=== PATIENT | male | born 1945 | race Caucasian/White ===

== ENCOUNTER → 2016-12-23 20:17 | Emergency (ER) | payer MEDICARE ==
[~2016-12-23 20:17] MED LIST: Iohexol 300* (CONTRAST) 10 ML SDV IV ONE; Morphine INJ* 2 MG/ML 1 ML SYRINGE IV ONE; NS 0.9% 1000 ML* 1,000 ML IV ONE; Ondansetron INJ* 2 MG/ML VIAL IV ONE; Tamsulosin CAP* 0.4 MG PO ONE
[2016-12-23 21:45] LABS: Hematocrit 48 % (42-52); Hemoglobin 15.5 g/dl (14.0-18.0); Mean Corpuscular HGB Conc 32 g/dl (31-36); Mean Corpuscular Hemoglobin 31 pg (27-31); Mean Corpuscular Volume 95 fL (80-94); Mean Platelet Volume 10 um3 (7.4-10.4); Red Blood Count 5.04 10^6/ul (4.0-5.4); Red Cell Distribution Width 16 % (10.5-15); White Blood Count 7.1 10^3/ul (3.5-10.8)
[2016-12-23 21:48] LABS: Add Diff/Slide Review? Slide Review Added; Comments Flag Yes
[2016-12-23 21:59] LABS: Albumin 3.6 g/dL (3.2-5.2); BUN/Creatinine Ratio 18.4 (8-20); C Reactive Protein 9.74 mg/L (< 5.00); Calcium 9.2 mg/dL (8.6-10.3); EGFR African American 81.2 (>60); EGFR Non-African American 63.1 (>60); Magnesium 1.9 mg/dL (1.9-2.7); Total Bilirubin 0.7 mg/dL (0.2-1.0); Total Protein 6.6 g/dL (6.4-8.9)
[2016-12-23 22:19] LABS: Potassium 4.4 mmol/L (3.5-5.0)
[2016-12-24 01:07] LABS: Urine Bacteria Absent (Absent); Urine Bilirubin Negative (Negative); Urine Glucose Negative (Negative); Urine Nitrite Negative (Negative)
[2016-12-24 02:14] VITALS: BP 123/94
--- NOTE | 2016-12-24 07:37 | RAD ---
INDICATION: Abdominal pain. COMPARISON: Comparison is made with a prior CT angiogram of the chest from July 23, 2016. TECHNIQUE: A CT scan of the abdomen and pelvis was performed with intravenous and oral contrast following intravenous injection of 131 ml of Omnipaque 300 nonionic contrast. Contiguous axial sections were obtained from the lung bases through the symphysis pubis. Images were reconstructed in the coronal and sagittal planes. FINDINGS: There is a moderate size left pleural effusion. There is mild shift of the heart toward the right side. There are pleural calcifications present posteriorly at the right lung base which are unchanged likely from prior infection or hemorrhage. There is mild dependent bilateral lower lobe subsegmental atelectasis. There is a trace pericardial effusion. The liver is normal in size without significant focal hepatic abnormality. No calcified gallstones are seen. The spleen is markedly enlarged spanning 15.2 cm craniocaudad dimension. The pancreas appears to be within normal limits. The kidneys and adrenal glands are normal in size without focal abnormality. There is mild dilatation of the right renal pelvis, calyces and proximal ureter to the level of a 4 x 5 mm calculus in the proximal ureter causing mild hydronephrosis. The aorta is normal in caliber with moderate calcific plaque present. No significant enlarged retroperitoneal lymph nodes are seen. The stomach, small and large bowel appear nondistended. The patient is status post appendectomy by history. There are mild scattered diverticuli within the colon. There is no evidence for diverticulitis or colitis. There is a small amount of free intraperitoneal fluid noted adjacent to the liver and spleen, in both paracolic gutters and pelvis. No free intraperitoneal air is seen. The patient is status post laminectomy and posterior spinal fusion at the L4-L5 level with pedicle screws. No other focal osseous abnormalities are seen. IMPRESSION: 1. MODERATE SIZE LEFT PLEURAL EFFUSION. 2. TRACE PERICARDIAL EFFUSION. 3. 4 X 5 MM CALCULUS IN THE PROXIMAL RIGHT URETER CAUSING MILD HYDRONEPHROSIS. 4. SMALL AMOUNT OF ASCITES. 5. MILD SPLENOMEGALY.
--- NOTE | 2016-12-24 07:49 | RAD ---
INDICATION: Shortness of breath. COMPARISON: Comparison is made with a prior chest x-ray study from September 06, 2015. TECHNIQUE: Dual-energy PA and lateral views of the chest were obtained. FINDINGS: The heart is within normal limits in size. Mediastinal and hilar contours appear within normal limits. There are small bilateral pleural effusions and bibasilar infiltrates. There is flattening of the diaphragms suggestive of chronic obstructive pulmonary disease. IMPRESSION: SMALL BILATERAL PLEURAL EFFUSIONS AND BIBASILAR INFILTRATES.
--- NOTE | 2017-01-03 04:03 | ED ---
Desmond Heredia Billy, scribed for Keyon Agudelo MD on 12/23/16 at 2053 . Abdominal Pain/Male - HPI Summary HPI Summary: Patient is a 71 year-old male coming to [facility] for evaluation of RLQ pain radiating to the right flank. The pain started gradually at 1800 and has been constant since onset. Patient was watching TV when the pain started. He feels nauseated. No history of similar prior episodes or kidney stones. Patient felt normal earlier today. - History of Current Complaint Chief Complaint: EDFlankPain Stated Complaint: ABD AND FLANK PAIN Time Seen by Provider: 12/23/16 20:50 Hx Obtained From: Patient Onset/Duration: Gradual Onset, Lasting Hours Timing: Constant Severity Initially: Moderate Severity Currently: Moderate Pain Intensity: 8 Pain Scale Used: 0-10 Numeric Location: Discrete At: RLQ Radiates: Yes Radiates to: Flank Aggravating Factor(s): Nothing Alleviating Factor(s): Nothing Associated Signs And Symptoms: Positive: Nausea - Allergies/Home Medications Allergies/Adverse Reactions: Allergies Allergy/AdvReac Type Severity Reaction Status Date / Time Codeine Allergy Intermediate Nausea And Verified 09/13/15 05:54 Vomiting Penicillins AdvReac Severe Swelling Verified 09/13/15 05:54 PMH/Surg Hx/FS Hx/Imm Hx Endocrine/Hematology History: Denies: Hx Diabetes Cardiovascular History: Reports: Hx Angina - mid chest, Hx Hypertension GI History: Denies: Hx Gall Bladder Disease History: Denies: Hx Renal Disease Musculoskeletal History: Reports: Hx Bursitis, Other Musculoskeletal History - GOUT Sensory History: Reports: Hx Contacts or Glasses - GLASSES Denies: Hx Hearing Aid Opthamlomology History: Reports: Hx Contacts or Glasses - GLASSES - Surgical History Surgery Procedure, Year, and Place: APPENDECTOMY [facility]. TONSILLECTOMY [facility]. TENDON REPAIR LEFT HAND [facility]. L4-5 FUSION 09/13/2015 Hx Anesthesia Reactions: No Infectious Disease History: Denies: Traveled Outside the [place] in Last 30 Days - Family History Family History: No FHx of malignant hyperthermia or anesthesia reaction. - Social History Alcohol Use: Daily Alcohol Amount: 2 BEERS, 2-3 SCOTCH Substance Use Type: Reports: None Substance Use Comment - Amount & Last Used: CHEWS TOBACCO DAILY Hx Tobacco Use: Yes Smoking Status (MU): Former Smoker Amount Used/How Often: 2 PPD Length of Time of Smoking/Using Tobacco: 40 YEARS Have You Smoked in the Last Year: No Review of Systems Negative: Fever Positive: Abdominal Pain, Nausea Positive: flank pain All Other Systems Reviewed And Are Negative: Yes Physical Exam Triage Information Reviewed: Yes Vital Signs On Initial Exam: Initial Vitals Temp Pulse Resp BP Pulse Ox 97.6 F 104 20 159/112 98 12/23/16 20:20 12/23/16 20:20 12/23/16 20:20 12/23/16 20:20 12/23/16 20:20 Vital Signs Reviewed: Yes Appearance: Positive: Well-Appearing, Pain Distress - mild discomfort Skin: Positive: Warm Head/Face: Positive: Normal Head/Face Inspection Eyes: Positive: ARMAND ENT: Positive: Hearing grossly normal Neck: Positive: Supple Respiratory/Lung Sounds: Positive: Breath Sounds Present Cardiovascular: Positive: RRR Abdomen Description: Positive: Nontender, Soft. Negative: CVA Tenderness (R), CVA Tenderness (L) Bowel Sounds: Positive: Present Musculoskeletal: Positive: Strength/ROM Intact Neurological: Positive: Alert, Oriented to Person Place, Time Psychiatric: Positive: Affect/Mood Appropriate Diagnostics - Vital Signs Vital Signs Temp Pulse Resp BP Pulse Ox 12/23/16 20:20 97.6 F 104 20 159/112 98 - Laboratory Lab Results: Lab Results 12/23/16 12/23/16 12/23/16 Range/Units 21:30 21:30 21:30 WBC 7.1 (3.5-10.8) 10^3/ul RBC 5.04 (4.0-5.4) 10^6/ul Hgb 15.5 (14.0-18.0) g/dl Hct 48 (42-52) % MCV 95 H (80-94) fL MCH 31 (27-31) pg MCHC 32 (31-36) g/dl RDW 16 H (10.5-15) % Plt Count 138 L (150-450) 10^3/ul MPV 10 (7.4-10.4) um3 Neut % (Auto) 84.5 H (38-83) % Lymph % (Auto) 5.1 L (25-47) % Flagler % (Auto) 6.5 (1-9) % Eos % (Auto) 1.0 (0-6) % Baso % (Auto) 2.9 H (0-2) % Absolute Neuts (auto) 6.0 (1.5-7.7) 10^3/ul Absolute Lymphs (auto) 0.4 L (1.0-4.8) 10^3/ul Absolute Monos (auto) 0.5 (0-0.8) 10^3/ul Absolute Eos (auto) 0.1 (0-0.6) 10^3/ul Absolute Basos (auto) 0.2 (0-0.2) 10^3/ul Absolute Nucleated RBC 0 10^3/ul Nucleated RBC % 0 Sodium 134 (133-145) mmol/L Potassium 4.4 (3.5-5.0) mmol/L Chloride 104 (101-111) mmol/L Carbon Dioxide 23 (22-32) mmol/L Anion Gap 7 (2-11) mmol/L BUN 21 (6-24) mg/dL Creatinine 1.14 (0.67-1.17) mg/dL Est GFR ( Amer) 81.2 (>60) Est GFR (Non-Af Amer) 63.1 (>60) BUN/Creatinine Ratio 18.4 (8-20) Glucose 138 H (70-100) mg/dL Lactic Acid 1.1 (0.5-2.0) mmol/L Calcium 9.2 (8.6-10.3) mg/dL Magnesium 1.9 (1.9-2.7) mg/dL Total Bilirubin 0.70 (0.2-1.0) mg/dL AST 30 (13-39) U/L ALT 22 (7-52) U/L Alkaline Phosphatase 103 (34-104) U/L C-Reactive Protein 9.74 H (< 5.00) mg/L Total Protein 6.6 (6.4-8.9) g/dL Albumin 3.6 (3.2-5.2) g/dL Globulin 3.0 (2-4) g/dL Albumin/Globulin Ratio 1.2 (1-3) Lipase 64 (11.0-82.0) U/L Urine Color Urine Appearance Urine pH (5-9) Ur Specific [place] (1.010-1.030) Urine Protein (Negative) Urine Ketones (Negative) Urine Blood (Negative) Urine Nitrate (Negative) Urine Bilirubin (Negative) Urine Urobilinogen (Negative) Ur Leukocyte Esterase (Negative) Urine WBC (Auto) (Absent) Urine RBC (Auto) (Absent) Urine Bacteria (Absent) Urine Glucose (Negative) 12/24/16 Range/Units 00:48 WBC (3.5-10.8) 10^3/ul RBC (4.0-5.4) 10^6/ul Hgb (14.0-18.0) g/dl Hct (42-52) % MCV (80-94) fL MCH (27-31) pg MCHC (31-36) g/dl RDW (10.5-15) % Plt Count (150-450) 10^3/ul MPV (7.4-10.4) um3 Neut % (Auto) (38-83) % Lymph % (Auto) (25-47) % Flagler % (Auto) (1-9) % Eos % (Auto) (0-6) % Baso % (Auto) (0-2) % Absolute Neuts (auto) (1.5-7.7) 10^3/ul Absolute Lymphs (auto) (1.0-4.8) 10^3/ul Absolute Monos (auto) (0-0.8) 10^3/ul Absolute Eos (auto) (0-0.6) 10^3/ul Absolute Basos (auto) (0-0.2) 10^3/ul Absolute Nucleated RBC 10^3/ul Nucleated RBC % Sodium (133-145) mmol/L Potassium (3.5-5.0) mmol/L Chloride (101-111) mmol/L Carbon Dioxide (22-32) mmol/L Anion Gap (2-11) mmol/L BUN (6-24) mg/dL Creatinine (0.67-1.17) mg/dL Est GFR ( Amer) (>60) Est GFR (Non-Af Amer) (>60) BUN/Creatinine Ratio (8-20) Glucose (70-100) mg/dL Lactic Acid (0.5-2.0) mmol/L Calcium (8.6-10.3) mg/dL Magnesium (1.9-2.7) mg/dL Total Bilirubin (0.2-1.0) mg/dL AST (13-39) U/L ALT (7-52) U/L Alkaline Phosphatase (34-104) U/L C-Reactive Protein (< 5.00) mg/L Total Protein (6.4-8.9) g/dL Albumin (3.2-5.2) g/dL Globulin (2-4) g/dL Albumin/Globulin Ratio (1-3) Lipase (11.0-82.0) U/L Urine Color Yellow Urine Appearance Clear Urine pH 5.0 (5-9) Ur Specific [place] 1.027 (1.010-1.030) Urine Protein Negative (Negative) Urine Ketones Negative (Negative) Urine Blood 3+ H (Negative) Urine Nitrate Negative (Negative) Urine Bilirubin Negative (Negative) Urine Urobilinogen Negative (Negative) Ur Leukocyte Esterase Negative (Negative) Urine WBC (Auto) Trace(0-5/hpf) (Absent) Urine RBC (Auto) 3+(>10/hpf) H (Absent) Urine Bacteria Absent (Absent) Urine Glucose Negative (Negative) Result Diagrams: 12/23/16 21:30 12/23/16 21:30 Lab Statement: Any lab studies that have been ordered have been reviewed, and results considered in the medical decision making process. - Radiology CXR Radiology Interpretation Completed By: ED Physician - Blunting of the bilateral costophrenic angles. - CT abd/pel CT Interpretation Completed By: Radiologist - Mild right hydroureter secondary to a 5mm mid ureteral stone. Small amount of ascites of uncertain cause. Moderate size left pleural effusion causing mild medastinal shift and minimal right pleural effusion with mild basilar compressive atelectasis or scarring. Trace pericardial effusion. Mild splenomegaly. Right pleural calcifications likely reflect old infection or old hemorrhage. Re-Evaluation - Re-Evaluation First Eval Change: Improved Abdominal Pain Fem Course/Dx - Diagnoses Provider Diagnoses: Renal colic Discharge - Discharge Plan Condition: Improved Disposition: HOME Prescriptions: Tamsulosin CAP* [Flomax CAP*] 0.4 mg PO DAILY #7 cap Patient Education Materials: Kidney Stones (ED), Renal Colic (ED), Pleural Effusion (ED) Referrals: Servando Hubbard MD [Medical Doctor] - The documentation as recorded by the Desmond pineda Billy accurately reflects the service I personally performed and the decisions made by me, Keyon Agudelo MD.
== END | disposition home or self-care (01) ==
LOC: ED 20:17
DX: N23 Unspecified renal colic (principal); R10.31 Right lower quadrant pain; Z87.891 Personal history of nicotine dependence; R11.0 Nausea
CPT/HCPCS: 36415; 71020; 74177; 80053; 81003; 81015; 83605; 83690; 83735; 85025; 86140; 99284; J2270; J2405; Q9967

== ENCOUNTER 2016-12-25 15:09 | Inpatient (IN) | payer MEDICARE, OTHER ==
[2016-12-25] MEDS ORDERED: NS 0.9% 1000 ML* 1,000 ML IV ONE (16:02)
[2016-12-25 17:02] LABS: Hematocrit 44 % (42-52); Hemoglobin 14.4 g/dl (14.0-18.0); Mean Corpuscular HGB Conc 33 g/dl (31-36); Mean Corpuscular Hemoglobin 31 pg (27-31); Mean Corpuscular Volume 96 fL (80-94); Mean Platelet Volume 10 um3 (7.4-10.4); Red Blood Count 4.61 10^6/ul (4.0-5.4); Red Cell Distribution Width 15 % (10.5-15); White Blood Count 5.7 10^3/ul (3.5-10.8)
[2016-12-25 17:30] LABS: Albumin 3.5 g/dL (3.2-5.2); BUN/Creatinine Ratio 17.9 (8-20); Calcium 8.9 mg/dL (8.6-10.3); EGFR African American 100.2 (>60); EGFR Non-African American 77.9 (>60); Globulin 2.7 g/dL (2-4); Potassium 4.5 mmol/L (3.5-5.0); Total Bilirubin 0.7 mg/dL (0.2-1.0); Total Protein 6.2 g/dL (6.4-8.9)
--- NOTE | 2016-12-25 17:31 | RAD ---
Indication: Shortness of breath. 2 views of the chest including dual energy PA views demonstrate no mediastinal shift. Interstitial edema is noted with bibasilar atelectasis. Small bilateral pleural effusions are noted. When compared to previous exam of December 24, 2016 pleural effusion appears to to BE unchanged. IMPRESSION: Bilateral pleural effusion with interstitial edema and likely bibasilar atelectasis unchanged from December 24, 2016.
[2016-12-25] MEDS ORDERED: Iohexol 350* (CONTRAST) 500 ML MDV IV ONE (18:11)
--- NOTE | 2016-12-25 18:39 | RAD ---
Indication: Shortness of breath, elevated d-dimer. Contrast: Administered 83.0 ml of OMNIPAQUE 350 mgi/ml CTA of the chest was performed after IV contrast administration. Coronal and sagittal reconstructed images were obtained. Comparison is made with previous exam dated July 23, 2016. The pulmonary arterial tree is well opacified. There are no filling defects present to suggest pulmonary embolus. The aorta demonstrates no evidence of aneurysmal dilatation. The heart demonstrates no pericardial effusion. Inferior thyroid lobes are unremarkable. Small 3 to 5 mm precarinal lymph nodes are noted. No hilar adenopathy is noted. There is a large left-sided pleural effusion with compressive atelectasis of the left lung base. Some atelectasis in the right lung base is also noted. Lung auguste otherwise demonstrate some bronchiectasis in the right lower lobe. No focal nodules are identified. The bony structures are grossly unremarkable. The visualized abdominal organs are unremarkable. Small amount of ascites is noted. IMPRESSION: NO EVIDENCE OF PULMONARY EMBOLUS IS NOTED. LARGE LEFT PLEURAL EFFUSION WITH LIKELY COMPRESSIVE ATELECTASIS OF THE LEFT LOWER LOBE. THIS FINDING IS NEW SINCE PREVIOUS EXAMINATION.
[2016-12-25 19:13] LABS: C Reactive Protein 9.09 mg/L (< 5.00)
[2016-12-25] MEDS ORDERED: CMCS Melatonin (NF) 3 MG TAB PO SCH (21:00)
[2016-12-25] MEDS: CMCS Melatonin (NF) 3 MG TAB PO SCH (22:35)
[2016-12-25] MEDS: Furosemide IV* 10 MG/ML VIAL (40 MG) IV SCH (22:35)
[2016-12-25] MEDS: Heparin VIAL(*) 5000 UNITS/ML VIAL (FIVE THOUSAND) SUBCUT SCH (22:36)
--- NOTE | 2016-12-26 | HP ---
HISTORY AND PHYSICAL: DATE OF ADMISSION: 12/25/16 PRIMARY CARE PROVIDER: Norma Rae NP ATTENDING PHYSICIAN: Dr. Mitchel Gaitan* (dictated by Marry Samano NP). CHIEF COMPLAINT: Shortness of breath when lying flat and lower extremity edema. HISTORY OF PRESENT ILLNESS: Mr. Hartman is a 71-year-old male with a past medical history significant for hypertension, angina and gout who presented to the emergency room today after being transferred from his primary care provider' s office for further evaluation of his shortness of breath. The patient reports that over the last approximate month, he has noticed increased ankle edema. 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 The patient started wearing SNOW compression stockings and did start to have some improvement in his lower extremity edema. The patient has also noted that he has been short of breath over the past few weeks, more so with exertion and the shortness of breath was worse at the bedtime. He is unable to lie flat for a few hours at night and then has been happening to get up and sleep sitting up in his recliner chair. He also reports gaining approximately 10 pounds over the past 3 weeks. The patient reports recently eating Spam and corned beef over the past week. He was also seen in the emergency room on 12/23/16, and was diagnosed with a kidney stone. At that time, the patient had a chest x-ray showing small bilateral pleural effusion and bibasilar infiltrates. He also had an abdomen and pelvis CT scan showing a moderate sized left pleural effusion, a trace pericardial effusion and a 4 x 5 mm renal calculus in the proximal right ureter causing a mild hydronephrosis. At that time the patient was started on Flomax and discharged home to follow up with Urology outpatient. The patient has been straining his urine and has not seen a stone be passed. His abdomen discomfort has resolved since that admission. The patient was at his primary care having a followup today and discussing his symptoms and they felt after seeing the image reports that the patient should be further evaluated in the emergency room today. While in the emergency room, the patient had a chest x-ray showing bilateral pleural effusions with interstitial edema and likely bibasilar atelectasis is unchanged from December 24. The patient also had a chest thoracic CTA showing no evidence for pulmonary embolism. There was a large left pleural effusion with likely compressive atelectasis of the left lower lobe. This finding was new since the previous imaging. The patient also had a EKG showing a sinus rhythm with new T- wave inversions in leads V1 to V3. While in the emergency room, the patient received a liter of IV fluids. He had labs that were remarkable for a slightly low platelet count of 146. He had a D-dimer that was 526, BNP of 172, CRP of 9.09. The patient's other labs were unremarkable. The patient denies fever, chills, chest pain. He reports a dry occasional cough. He reports a poor appetite over the past few months and reports recently waking up in the night with nocturnal urination and approximately 3 weeks ago was treated for a UTI. Hospitalists were asked to evaluate this patient for admission. PAST MEDICAL HISTORY: 1. Hypertension. 2. Angina. 3. Gout. 4. Bursitis. PAST SURGICAL HISTORY: 1. Status post appendectomy. 2. Status post tonsillectomy. 3. Status post tendon repair of the left hand. 4. Status post L4-5 fusion in September of 2015. HOME MEDICATIONS: Include: 1. Flomax 0.4 mg oral daily. 2. Lisinopril 5 mg oral daily. 3. Vitamin D3, 4000 units oral daily. 4. Aspirin 81 mg oral daily. 5. Allopurinol 100 mg oral daily. ALLERGIES: CODEINE and PENICILLIN. FAMILY HISTORY: The patient's father passed in his 70s after having a history of coronary artery disease, peripheral vascular disease and a history of coronary artery bypasses. The patient's maternal family has a history of diabetes mellitus. The patient denies any family history of cancer. SOCIAL HISTORY: The patient is a former smoker smoking 4 packs a day for approximately 35 years, he quit smoking approximately 30 years ago. He currently uses smokeless tobacco and uses a de jesus approximately 2 days. The patient drinks 2 beers and one scotch daily. He denies recreational drug use. 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 He is and lives with his , Griselda Hartman, who would be his surrogate decision maker in the event that he is unable to make decisions for himself. REVIEW OF SYSTEMS: I performed a 14-point review of systems. All the pertinent positives and negatives are mentioned in the history of present illness. The remaining review of systems are negative. PHYSICAL EXAMINATION GENERAL APPEARANCE: The patient is alert, pleasant, appears to be in no acute distress. VITAL SIGNS: Temperature 98.3, heart rate 82, respiratory rate 18, O2 sat 96% on room air, blood pressure 142/78. HEENT: Normocephalic, atraumatic. Pupils are equal and reactive to light. Extraocular movements are intact. RESPIRATORY: There is no accessory muscle use. The lungs are clear in the upper auguste and there are crackles in the bilateral lower lobes. CARDIOVASCULAR: Regular rate and rhythm. S1, S2 present. There is no murmurs , rubs or gallops heard. ABDOMEN: Soft, large, nontender. There are bowel sounds present x4. EXTREMITIES: There is 1 to 2+ bilateral lower extremity edema. DP and PT pulses 1+ and symmetric. MUSCULOSKELETAL: There is no clubbing or cyanosis noted. The patient exhibits good strength in all extremities. NEUROLOGIC: The patient is alert and oriented x4. Cranial nerves II through XII are grossly intact. PSYCHOLOGICAL: The patient is calm and cooperative. SKIN: There are no rashes or abnormalities seen. DIAGNOSTIC STUDIES/LABORATORY DATA: Sodium 135, potassium 4.5, chloride 102, CO2 28, BUN 17, creatinine 0.95, glucose 88. White blood cell count 5.7, hemoglobin 14.4, hematocrit 44, and platelet count 147. D-dimer 526, CRP 9.09, BNP 172, troponin 0.00. EKG shows a sinus rhythm, rate of 99 and right bundle branch block. There are T - wave inversions that is new in leads V1 to V3 when compared to previous EKG from 07/23/16. The right bundle branch block is new. 1. Chest x-ray from today. Radiologist impression: Bilateral pleural effusion with interstitial edema and likely bibasilar atelectasis is unchanged from 12/24/16. 2. Chest CTA from today. Radiologist impression: No evidence of pulmonary embolus is noted. Large left pleural effusion with likely compressive atelectasis of the left lower lobe. This finding is new since previous examination. IMPRESSION: Mr. Hart is a 71-year-old male with a past medical history significant for hypertension and angina who presents to the emergency room with complaints of shortness of breath and pedal edema. He will be admitted as an observation for new onset heart failure. 1. Shortness of breath. I suspect the patient's shortness of breath is related to heart failure exacerbation. This is new onset for the patient. We will monitor him on telemetry, check an echocardiogram in the morning. I will give the patient a dose of IV Lasix now and place him on Lasix twice daily starting in the morning. We will do daily weights and strict I's and O's. 2. Hypertension. The patient will be continued on his home lisinopril. 3. History of gout. The patient will be continued on his home allopurinol. 4. Kidney stone. The patient has not yet passed the kidney stone. He is no longer having flank pain. We will continue him on Flomax at this time. 5. Fluids, electrolytes and nutrition. The patient will be on a low sodium diet. 6. Code status. Full code. 7. DVT prophylaxis. The patient is a highest risk and will have subcu heparin and SNOW compression stockings. 8. Disposition. Observation. TIME SPENT: Time for this admission was 60 minutes, 35 minutes was spent face- to- face with the patient and discussing medications, past medical history and the events leading up their arrival today and performing a physical examination. The case has been reviewed with the attending, Dr. Gaitan, who agrees with the plan of care. Reviewed by JOSE JUAN GOLDBERG 12/29/16 [id number] CC: Norma Rae NP at the [facility]* [id number]/CPS #: [id number] MTDD
[2016-12-26] MEDS: Heparin VIAL(*) 5000 UNITS/ML VIAL (FIVE THOUSAND) SUBCUT SCH ×3 (05:18→21:12)
[2016-12-26 05:44] LABS: BUN/Creatinine Ratio 20.7 (8-20); Calcium 8.6 mg/dL (8.6-10.3); EGFR African American 118.8 (>60); EGFR Non-African American 92.4 (>60); Potassium 3.9 mmol/L (3.5-5.0)
[2016-12-26] MEDS: Allopurinol TAB* 100 MG PO SCH (08:54)
[2016-12-26] MEDS: Cholecalciferol TAB* 1000 UNITS PO SCH (08:55)
[2016-12-26] MEDS: Tamsulosin CAP* 0.4 MG PO SCH (08:55)
[2016-12-26] MEDS: Aspirin Low Dose CHEW TAB* 81 MG PO SCH (08:56)
[2016-12-26] MEDS: Furosemide IV* 10 MG/ML VIAL (40 MG) IV SCH ×2 (08:56→17:18)
[2016-12-26] MEDS ORDERED: Lisinopril TAB* 5 MG PO SCH (09:00)
--- NOTE | 2016-12-26 13:15 | ECHO ---
Patient: KOMAL BUSH [facility] Rec#: [id number] : 1945 Date: 12/26/2016 Age: 71y Height: 180.34 cm / 71.0 in Weight: 103.42 kg / 227.9 lbs Sex: M BSA: 2.23 Room#: 443 Admit Date#: 12/25/2016 Type: Inpatient Referring: Marry Philip NP Reading: Kayla Singh MD [employer] Machine Operator: Ngozi ClarkRDCS,RDMS Transthoracic Echocardiogram Indication: SOB, edema BP: 97/82 HR: 95 Rhythm: NSR Indications Shortness of Breath Findings History: Large left pleural effusion, HTN, gout Technical Comments: The study quality is poor. Completed 1120 The study is technically limited due to poor acoustic windows. Left Ventricle: The left ventricle is not well visualized. The estimated ejection fraction is 55-60%. Abnormal left ventricular diastolic filling is observed, consistent with impaired relaxation. Left Atrium: The left atrium is mildly dilated. Right Ventricle: The right ventricular chamber size and systolic function are within normal limits. The right ventricular global systolic function is mildly to moderately reduced. Right Atrium: The right atrium is mild to moderately dilated. Aortic Valve: The aortic valve leaflets are mildly thickened. There is aortic annular calcification. There is no evidence of aortic regurgitation. There is no evidence of aortic stenosis. Mitral Valve: The mitral valve leaflets appear normal. There is no evidence of mitral regurgitation. There is no evidence of mitral stenosis. Tricuspid Valve: The tricuspid valve leaflets are normal. There is trace tricuspid regurgitation. No pulmonary hypertension is noted. Pulmonic Valve: There is no evidence of pulmonic valve thickening. There is a trace pulmonic regurgitation. Pericardium: There is no significant pericardial effusion. Aorta: The aorta is not well visualized. There is no dilatation of the aortic arch. Pulmonary Artery: The main pulmonary artery is not well visualized. Venous: The inferior vena cava is dilated. There is less than 50% respiratory change in the inferior vena cava dimension. Conclusions The study quality is poor. Best images were subcostal. Grossly normal left ventricular wall motion and systolic function. The estimated ejection fraction is 55-60%. Abnormal left ventricular diastolic filling is observed, consistent with impaired relaxation. The right ventricular chamber size is normal. Mild to moderate RV hypokinesis. All valves show grossly normal function. The aortic valve leaflets are mildly thickened with normal function. There is trace tricuspid regurgitation. No pulmonary hypertension is noted. No prior echo to compare. Measurements Name Value Normal Range RVDdMajor (2D) 2.6 cm (2.2 - 4.4) RAd ISD 4CH 6.3 cm (3.4 - 4.9) RA (A4C)W 4.6 cm (2.9 - 4.6) Aortic arch 2.4 cm (1.8 - 3.4) LAd ISD 4CH 5 cm (2.9 - 5.3) LA ISD 4CH W 5.1 cm (2.5 - 4.5) Name Value Normal Range MV E-wave Vmax 0.3 m/sec - MV deceleration time 108 msec - MV A-wave Vmax 0.6 m/sec - MV E:A ratio 0.5 ratio - LV septal e' Vmax 0.09 m/sec - LV lateral e' Vmax 0.08 m/sec - LV E:e' septal ratio 3.4 ratio - LV E:e' lateral ratio 3.8 ratio - Name Value Normal Range AV Vmax 1.5 m/sec - AV VTI 24 cm - AV peak gradient 9 mmHg - AV mean gradient 4.8 mmHg - LVOT Vmax 0.5 m/sec - LVOT VTI 8.1 cm - LVOT peak gradient 1.2 mmHg - LVOT mean gradient 0.5 mmHg - Name Value Normal Range TR Vmax 1.6 m/sec - TR peak gradient 10 mmHg - RAP 8 mmHg - RVSP 18 mmHg - IVC diameter 2.3 cm - Name Value Normal Range PV Vmax 0.6 m/sec - PV peak gradient 1.4 mmHg -
--- NOTE | 2016-12-26 14:35 | ED ---
Duarte Heredia Anna, scribed for NdubuisiArtemio MD on 12/25/16 at 1632 . Shortness of Breath - HPI Summary HPI Summary: Patient is a 71 y/o male coming to [facility] presenting with SOB that began a few weeks ago. He has also had ankle edema beginning one month ago. Associated with a dry cough. The SOB is exacerbated by exertion and is worse at night. He additionally has decreased appetite. He was seen two nights ago for flank pain and dx with kidney stone. At that time, a CXR revealed small bilateral pleural effusion and pericardial effusion. He denies other cardiac or pulmonary history. 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 He denies a Hx of blood clot. He had a stress test in 07/2016. Patient medications were reviewed this visit. - History of Current Complaint Chief Complaint: EDShortnessOfBreath Time Seen by Provider: 12/25/16 15:49 Hx Obtained From: Patient, Family/Door Closer - accompanied by and daughters Current Severity: Moderate Dyspnea At: Exertion - Allergy/Home Medications Allergies/Adverse Reactions: Allergies Allergy/AdvReac Type Severity Reaction Status Date / Time Codeine Allergy Intermediate Nausea And Verified 09/13/15 05:54 Vomiting Penicillins AdvReac Severe Swelling Verified 09/13/15 05:54 PMH/Surg Hx/FS Hx/Imm Hx Endocrine/Hematology History: Denies: Hx Diabetes Cardiovascular History: Reports: Hx Angina - mid chest, Hx Hypertension - MEDICATED GI History: Denies: Hx Gall Bladder Disease History: Denies: Hx Renal Disease Musculoskeletal History: Reports: Hx Bursitis, Other Musculoskeletal History - GOUT Sensory History: Reports: Hx Contacts or Glasses - GLASSES Denies: Hx Hearing Aid Opthamlomology History: Reports: Hx Contacts or Glasses - GLASSES - Surgical History Surgery Procedure, Year, and Place: APPENDECTOMY [facility]. TONSILLECTOMY [facility] [place] TENDON REPAIR LEFT HAND [facility]. L4-5 FUSION 09/13/2015 Hx Anesthesia Reactions: No Infectious Disease History: No Infectious Disease History: Denies: Traveled Outside the [place] in Last 30 Days - Family History Family History: No FHx of malignant hyperthermia or anesthesia reaction. - Social History Alcohol Use: Daily Alcohol Amount: 2 BEERS, 2-3 SCOTCH Substance Use Type: Reports: None Substance Use Comment - Amount & Last Used: CHEWS TOBACCO DAILY Hx Tobacco Use: Yes Smoking Status (MU): Former Smoker Amount Used/How Often: 2 PPD Length of Time of Smoking/Using Tobacco: 40 YEARS Have You Smoked in the Last Year: No Review of Systems Positive: Other - decreased appetite Positive: Shortness Of Breath, Cough Positive: Edema All Other Systems Reviewed And Are Negative: Yes Physical Exam Triage Information Reviewed: Yes Vital Signs On Initial Exam: Initial Vitals Temp Pulse Resp BP Pulse Ox 98.3 F 100 18 128/90 99 12/25/16 15:13 12/25/16 15:13 12/25/16 15:13 12/25/16 15:13 12/25/16 15:13 Vital Signs Reviewed: Yes Appearance: Positive: Well-Appearing, No Pain Distress, Well-Nourished Skin: Positive: Warm, Skin Color Reflects Adequate Perfusion, Dry Head/Face: Positive: Normal Head/Face Inspection Eyes: Positive: EOMI, ARMAND, Conjunctiva Clear ENT: Positive: Pharynx normal, TMs normal Neck: Positive: Supple, Nontender, Other: - No JVD Respiratory/Lung Sounds: Positive: Breath Sounds Present, Other - Bilbasilar crackles. Negative: Rales, Rhonchi, Wheezes Cardiovascular: Positive: RRR, S1, S2. Negative: Murmur, Rub, Other - no gallops Abdomen Description: Positive: Nontender, No Organomegaly. Negative: Distended , Guarding, Other: - No rebound Bowel Sounds: Positive: Present Musculoskeletal: Positive: Strength/ROM Intact, Other - 2+ edema of bilateral lower extremities Neurological: Positive: Normal, Sensory/Motor Intact, Alert, Oriented to Person Place, Time Psychiatric: Positive: Affect/Mood Appropriate - [place] Coma Scale Coma Scale Total: 15 Diagnostics - Vital Signs Vital Signs Temp Pulse Resp BP Pulse Ox 12/25/16 15:27 98.3 F 101 18 123/93 96 12/25/16 15:13 98.3 F 100 18 128/90 99 - Laboratory Lab Results: Lab Results 12/25/16 12/25/16 12/25/16 Range/Units 16:39 16:40 16:40 WBC 5.7 (3.5-10.8) 10^3/ul RBC 4.61 (4.0-5.4) 10^6/ul Hgb 14.4 (14.0-18.0) g/dl Hct 44 (42-52) % MCV 96 H (80-94) fL MCH 31 (27-31) pg MCHC 33 (31-36) g/dl RDW 15 (10.5-15) % Plt Count 146 L (150-450) 10^3/ul MPV 10 (7.4-10.4) um3 Neut % (Auto) 71.9 (38-83) % Lymph % (Auto) 14.3 L (25-47) % [place] % (Auto) 10.5 H (1-9) % Eos % (Auto) 2.7 (0-6) % Baso % (Auto) 0.6 (0-2) % Absolute Neuts (auto) 4.1 (1.5-7.7) 10^3/ul Absolute Lymphs (auto) 0.8 L (1.0-4.8) 10^3/ul Absolute Monos (auto) 0.6 (0-0.8) 10^3/ul Absolute Eos (auto) 0.2 (0-0.6) 10^3/ul Absolute Basos (auto) 0 (0-0.2) 10^3/ul Absolute Nucleated RBC 0.01 10^3/ul Nucleated RBC % 0.1 INR (Anticoag Therapy) (0.89-1.11) APTT (26.0-36.3) seconds D-Dimer, Quantitative (Less Than 230) ng/mL Sodium 135 (133-145) mmol/L Potassium 4.5 (3.5-5.0) mmol/L Chloride 102 (101-111) mmol/L Carbon Dioxide 28 (22-32) mmol/L Anion Gap 5 (2-11) mmol/L BUN 17 (6-24) mg/dL Creatinine 0.95 (0.67-1.17) mg/dL Est GFR ( Amer) 100.2 (>60) Est GFR (Non-Af Amer) 77.9 (>60) BUN/Creatinine Ratio 17.9 (8-20) Glucose 88 (70-100) mg/dL Lactic Acid 0.9 (0.5-2.0) mmol/L Calcium 8.9 (8.6-10.3) mg/dL Total Bilirubin 0.70 (0.2-1.0) mg/dL AST 24 (13-39) U/L ALT 18 (7-52) U/L Alkaline Phosphatase 87 (34-104) U/L Total Creatine Kinase 24 (10-223) U/L CK-MB (CK-2) 1.7 (0.6-6.3) ng/mL Troponin I 0.00 (<0.04) ng/mL C-Reactive Protein 9.09 H (< 5.00) mg/L B-Natriuretic Peptide ( - 100) pg/mL Total Protein 6.2 L (6.4-8.9) g/dL Albumin 3.5 (3.2-5.2) g/dL Globulin 2.7 (2-4) g/dL Albumin/Globulin Ratio 1.3 (1-3) 12/25/16 12/25/16 Range/Units 16:40 16:40 WBC (3.5-10.8) 10^3/ul RBC (4.0-5.4) 10^6/ul Hgb (14.0-18.0) g/dl Hct (42-52) % MCV (80-94) fL MCH (27-31) pg MCHC (31-36) g/dl RDW (10.5-15) % Plt Count (150-450) 10^3/ul MPV (7.4-10.4) um3 Neut % (Auto) (38-83) % Lymph % (Auto) (25-47) % [place] % (Auto) (1-9) % Eos % (Auto) (0-6) % Baso % (Auto) (0-2) % Absolute Neuts (auto) (1.5-7.7) 10^3/ul Absolute Lymphs (auto) (1.0-4.8) 10^3/ul Absolute Monos (auto) (0-0.8) 10^3/ul Absolute Eos (auto) (0-0.6) 10^3/ul Absolute Basos (auto) (0-0.2) 10^3/ul Absolute Nucleated RBC 10^3/ul Nucleated RBC % INR (Anticoag Therapy) 1.02 (0.89-1.11) APTT 27.8 (26.0-36.3) seconds D-Dimer, Quantitative 526 H (Less Than 230) ng/mL Sodium (133-145) mmol/L Potassium (3.5-5.0) mmol/L Chloride (101-111) mmol/L Carbon Dioxide (22-32) mmol/L Anion Gap (2-11) mmol/L BUN (6-24) mg/dL Creatinine (0.67-1.17) mg/dL Est GFR ( Amer) (>60) Est GFR (Non-Af Amer) (>60) BUN/Creatinine Ratio (8-20) Glucose (70-100) mg/dL Lactic Acid (0.5-2.0) mmol/L Calcium (8.6-10.3) mg/dL Total Bilirubin (0.2-1.0) mg/dL AST (13-39) U/L ALT (7-52) U/L Alkaline Phosphatase (34-104) U/L Total Creatine Kinase (10-223) U/L CK-MB (CK-2) (0.6-6.3) ng/mL Troponin I (<0.04) ng/mL C-Reactive Protein (< 5.00) mg/L B-Natriuretic Peptide 172 H ( - 100) pg/mL Total Protein (6.4-8.9) g/dL Albumin (3.2-5.2) g/dL Globulin (2-4) g/dL Albumin/Globulin Ratio (1-3) Result Diagrams: 12/25/16 16:40 12/26/16 04:53 Lab Statement: Any lab studies that have been ordered have been reviewed, and results considered in the medical decision making process. - Radiology CXR Xray Interpretation: No Acute Changes Radiology Interpretation Completed By: Radiologist - IMPRESSION: Bilateral pleural effusion with interstitial edema and likely bibasilar atelectasis unchanged from December 24, 2016. - CT Chest CTA CT Interpretation: Positive (See Comments) CT Interpretation Completed By: Radiologist - IMPRESSION: NO EVIDENCE OF PULMONARY EMBOLUS IS NOTED. LARGE LEFT PLEURAL EFFUSION WITH LIKELY COMPRESSIVE ATELECTASIS OF THE LEFT LOWER LOBE. THIS FINDING IS NEW SINCE PREVIOUS EXAMINATION. - EKG 1530 Cardiac Rate: NL - 99 bpm EKG Rhythm: Sinus Rhythm EKG Interpretation: RBBB. QrS 125. T-wave inverstion in V1-V3. Re-Evaluation - Re-Evaluation First Eval Re-Evaluation Time: 18:54 Comment: Discussed results and plan of care with patient and family. Patient and family are agreeable with plan. Course/Dx - Course Assessment/Plan: Patient is a 71 y/o male coming to [facility] presenting with SOB that began a few weeks ago. EKG reveals SR at 99 bpm with RBBB, QrS 125, and T- wave inversions in V1-V3. Labs reveal BNP of 172, D-Dimer of 526, MCV of 96. CXR reveals bilateral pleural effusion with interstitial edema and likely bibasilar atelectasis. Chest CTA reveals no evidence of pulmonary embolus but a large left pleural effusion with likely compressive atelectasis. Discussed patient care with Dr. Nj (hospitalist) who accepts patient for admission. - Diagnoses Provider Diagnoses: Shortness of breath - Physician Notifications Discussed Care of Patient With: Dr. Nj (hospitalist) at 1809. She accepts patient for admission. Discharge - Discharge Plan Condition: Fair Disposition: ADMITTED TO [facility] The documentation as recorded by the Duarte pineda Anna accurately reflects the service I personally performed and the decisions made by , Artemio Rush MD.
--- NOTE | 2016-12-26 15:48 | PN ---
Subjective Date of Service: 12/26/16 Interval History: CC: SOB Pt is feeling better now than when he presented to the ER. He states that he has urinated quite a bit. His SOB is improved. He was able to sleep laying flat. No chest pain. Objective Active Medications: Allopurinol (Zyloprim Tab*) 100 mg PO DAILY [facility] Last Admin: 12/26/16 08:54 Dose: 100 mg Aspirin (Aspirin Low Dose Tab*) 81 mg PO DAILY [facility] Last Admin: 12/26/16 08:56 Dose: 81 mg Cholecalciferol (Vitamin D Tab*) 4,000 units PO DAILY [facility] Last Admin: 12/26/16 08:55 Dose: 4,000 units Furosemide (Lasix Iv*) 40 mg IV 0800,1700 [facility] Last Admin: 12/26/16 08:56 Dose: 40 mg Heparin Sodium (Porcine) (Heparin Vial(*)) 5,000 units SUBCUT Q8HR [facility] Last Admin: 12/26/16 14:08 Dose: 5,000 units Lisinopril (Prinivil Tab*) 5 mg PO DAILY [facility] Last Admin: 12/26/16 08:54 Dose: 5 mg Melatonin (Melatonin (Nf)) 3 mg PO BEDTIME [facility] Last Admin: 12/25/16 22:35 Dose: 3 mg Tamsulosin HCl (Flomax Cap*) 0.4 mg PO DAILY [facility] Last Admin: 12/26/16 08:55 Dose: 0.4 mg Vital Signs 12/25/16 12/25/16 12/25/16 20:30 21:00 21:04 Temperature Pulse Rate 101 101 100 Respiratory 24 25 24 Rate Blood Pressure 106/77 93/70 118/73 (mmHg) O2 Sat by Pulse 95 95 94 Oximetry 12/25/16 12/25/16 12/25/16 21:30 21:34 21:47 Temperature 97.6 F Pulse Rate 98 96 99 Respiratory 23 25 20 Rate Blood Pressure 117/75 111/79 (mmHg) O2 Sat by Pulse 95 96 97 Oximetry 12/25/16 12/25/16 12/26/16 21:49 23:29 04:10 Temperature 98.0 F 98.2 F 97.4 F Pulse Rate 98 87 Respiratory 16 16 Rate Blood Pressure 96/69 97/82 (mmHg) O2 Sat by Pulse 96 96 Oximetry 0512/26/16 12/26/16 07:33 08:00 11:44 Temperature 97.8 F 98.2 F Pulse Rate 88 93 Respiratory 16 16 16 Rate Blood Pressure 108/84 115/80 (mmHg) O2 Sat by Pulse 97 96 Oximetry Oxygen Devices in Use Now: None Appearance: Elderly male sitting up in bed, NAD Eyes: No Scleral Icterus Ears/Nose/Mouth/Throat: Mucous Membranes Moist Respiratory: Symmetrical Chest Expansion and Respiratory Effort, Clear to Auscultation - with fine bibasilar crackles Cardiovascular: NL Sounds; No Murmurs; No JVD, RRR, - - 1+ B/L LE edema Abdominal: NL Sounds; No Tenderness; No Distention Extremities: No Clubbing, Cyanosis Skin: No Rash or Ulcers, No Nodules or Sclerosis Neurological: Alert and Oriented x 3 Result Diagrams: 12/25/16 16:40 12/26/16 04:53 Additional Lab and Data: Lab Results 12/25/16 12/25/16 12/25/16 Range/Units 16:39 16:40 16:40 WBC 5.7 (3.5-10.8) 10^3/ul RBC 4.61 (4.0-5.4) 10^6/ul Hgb 14.4 (14.0-18.0) g/dl Hct 44 (42-52) % MCV 96 H (80-94) fL MCH 31 (27-31) pg MCHC 33 (31-36) g/dl RDW 15 (10.5-15) % Plt Count 146 L (150-450) 10^3/ul MPV 10 (7.4-10.4) um3 Neut % (Auto) 71.9 (38-83) % Lymph % (Auto) 14.3 L (25-47) % [place] % (Auto) 10.5 H (1-9) % Eos % (Auto) 2.7 (0-6) % Baso % (Auto) 0.6 (0-2) % Absolute Neuts (auto) 4.1 (1.5-7.7) 10^3/ul Absolute Lymphs (auto) 0.8 L (1.0-4.8) 10^3/ul Absolute Monos (auto) 0.6 (0-0.8) 10^3/ul Absolute Eos (auto) 0.2 (0-0.6) 10^3/ul Absolute Basos (auto) 0 (0-0.2) 10^3/ul Absolute Nucleated RBC 0.01 10^3/ul Nucleated RBC % 0.1 INR (Anticoag Therapy) (0.89-1.11) APTT (26.0-36.3) seconds D-Dimer, Quantitative (Less Than 230) ng/mL Sodium 135 (133-145) mmol/L Potassium 4.5 (3.5-5.0) mmol/L Chloride 102 (101-111) mmol/L Carbon Dioxide 28 (22-32) mmol/L Anion Gap 5 (2-11) mmol/L BUN 17 (6-24) mg/dL Creatinine 0.95 (0.67-1.17) mg/dL Est GFR ( Amer) 100.2 (>60) Est GFR (Non-Af Amer) 77.9 (>60) BUN/Creatinine Ratio 17.9 (8-20) Glucose 88 (70-100) mg/dL Lactic Acid 0.9 (0.5-2.0) mmol/L Calcium 8.9 (8.6-10.3) mg/dL Total Bilirubin 0.70 (0.2-1.0) mg/dL AST 24 (13-39) U/L ALT 18 (7-52) U/L Alkaline Phosphatase 87 (34-104) U/L Total Creatine Kinase 24 (10-223) U/L CK-MB (CK-2) 1.7 (0.6-6.3) ng/mL Troponin I 0.00 (<0.04) ng/mL C-Reactive Protein 9.09 H (< 5.00) mg/L B-Natriuretic Peptide ( - 100) pg/mL Total Protein 6.2 L (6.4-8.9) g/dL Albumin 3.5 (3.2-5.2) g/dL Globulin 2.7 (2-4) g/dL Albumin/Globulin Ratio 1.3 (1-3) 12/25/16 12/25/16 Range/Units 16:40 16:40 WBC (3.5-10.8) 10^3/ul RBC (4.0-5.4) 10^6/ul Hgb (14.0-18.0) g/dl Hct (42-52) % MCV (80-94) fL MCH (27-31) pg MCHC (31-36) g/dl RDW (10.5-15) % Plt Count (150-450) 10^3/ul MPV (7.4-10.4) um3 Neut % (Auto) (38-83) % Lymph % (Auto) (25-47) % [place] % (Auto) (1-9) % Eos % (Auto) (0-6) % Baso % (Auto) (0-2) % Absolute Neuts (auto) (1.5-7.7) 10^3/ul Absolute Lymphs (auto) (1.0-4.8) 10^3/ul Absolute Monos (auto) (0-0.8) 10^3/ul Absolute Eos (auto) (0-0.6) 10^3/ul Absolute Basos (auto) (0-0.2) 10^3/ul Absolute Nucleated RBC 10^3/ul Nucleated RBC % INR (Anticoag Therapy) 1.02 (0.89-1.11) APTT 27.8 (26.0-36.3) seconds D-Dimer, Quantitative 526 H (Less Than 230) ng/mL Sodium (133-145) mmol/L Potassium (3.5-5.0) mmol/L Chloride (101-111) mmol/L Carbon Dioxide (22-32) mmol/L Anion Gap (2-11) mmol/L BUN (6-24) mg/dL Creatinine (0.67-1.17) mg/dL Est GFR ( Amer) (>60) Est GFR (Non-Af Amer) (>60) BUN/Creatinine Ratio (8-20) Glucose (70-100) mg/dL Lactic Acid (0.5-2.0) mmol/L Calcium (8.6-10.3) mg/dL Total Bilirubin (0.2-1.0) mg/dL AST (13-39) U/L ALT (7-52) U/L Alkaline Phosphatase (34-104) U/L Total Creatine Kinase (10-223) U/L CK-MB (CK-2) (0.6-6.3) ng/mL Troponin I (<0.04) ng/mL C-Reactive Protein (< 5.00) mg/L B-Natriuretic Peptide 172 H ( - 100) pg/mL Total Protein (6.4-8.9) g/dL Albumin (3.2-5.2) g/dL Globulin (2-4) g/dL Albumin/Globulin Ratio (1-3) Assess/Plan/Problems-Billing Mr Hartman is a 71 yo M with a h/o HTN and gout who presented to the ER with c/ o SOB and pleural effusions on recent CT scan. He was admitted for evaluation of acute decompensated CHF. - Patient Problems (1) Heart failure with preserved ejection fraction Current Visit: Yes Status: Acute Code(s): I50.30 - UNSPECIFIED DIASTOLIC ( CONGESTIVE) HEART FAILURE SNOMED Code(s): 92752722 Comment: The cause of the patient's diastolic dysfunction is not clear. ? secondary to aging process vs long standing HTN vs restrictive cardiomyopathy. He feels improved with the IV lasix. He has not been weighed yet today. Will ask for daily weights to be done. Continue IV lasix for now-watch electrolytes. Will ask for cardiology evaluation. He had a stress test 07/2016 that did not reveal any evidence of infarct or ischemia. (2) HTN (hypertension) Current Visit: Yes Status: Acute Code(s): I10 - ESSENTIAL (PRIMARY) HYPERTENSION SNOMED Code(s): 90349747 Comment: BP is excellent on his home dose of lisinopril. (3) Chronic alcohol use Current Visit: Yes Status: Acute Code(s): F10.10 - ALCOHOL ABUSE, UNCOMPLICATED SNOMED Code(s): 830505 Comment: No signs of EtOH withdrawal. He drinks about 3 alcoholic beverages/ day. (4) Gout Current Visit: No Status: Acute Code(s): M10.9 - GOUT, UNSPECIFIED SNOMED Code(s): 48484653 Comment: No active disease at this time. Continue allopurinol. (5) DVT prophylaxis Current Visit: Yes Status: Acute Code(s): LZH4517 - SNOMED Code(s): 394299268 Comment: SQ Heparin (6) Full code status Current Visit: Yes Status: Acute Code(s): Z78.9 - OTHER SPECIFIED HEALTH STATUS SNOMED Code(s): 554870101
[2016-12-26] MEDS: Metoprolol Succinate XL TAB* 25 MG PO SCH (20:11)
[2016-12-26] MEDS: CMCS Melatonin (NF) 3 MG TAB PO SCH (20:12)
--- NOTE | 2016-12-27 02:21 | CONS ---
CONSULTATION REPORT: DATE OF CONSULT: 12/26/16 REASON FOR CONSULTATION: Congestive heart failure. HISTORY OF PRESENT ILLNESS: The patient is a 71-year-old gentleman followed by the [facility] with no prior documented cardiac issues. The patient was seen and examined in the presence of 2 daughters. The patient was seen in the emergency department 12/23/16 for kidney stones. He has had no recurrent pain from knees but was having trouble breathing and swollen legs and so was referred by his primary team back to the emergency department. Yesterday, the patient was short of breath and he has had progressive swelling of the ankles and legs. According to the patient's daughters, they think his symptoms started approximately a month ago where he seemed to be more winded and started to have swelling in his legs. He and his daughters described orthopnea, so he started sleeping in a chair, and PND. Although he denies any increase in abdominal girth he thinks he has put on some weight. The patient initially denied any awareness of eating high salt food and in fact says that he tried to avoid it, but he admits that he had eaten a Spam sandwich yesterday, corned beef earlier in the week. It also turns out that since his back surgery with Dr. Mims in September, he has taken some nonsteroidals on occasion. The patient's daughters are concerned because when they were in the emergency department with his kidney stone that even after the pain resolved (stone not seen to have passed but pain resolved), his heart rate did not decline. 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 He says he is just tired and is nonspecific, but he denied chest pain, pressure, heaviness. PAST MEDICAL HISTORY: The patient has a past medical history of hypertension, per the patient and daughter, this is recent and he has been treated for just 6 months. Prior to that, he had white coat hypertension and he says that was always low at home. He has a history of chest pain that has been called angina with negative stress test, a history of gout, centripetal obesity, bursitis, benign prostatic hypertrophy and renal calculi. PAST SURGICAL HISTORY: Includes fusion L4-5 in September 2015, tendon repair in the left hand, tonsillectomy, appendectomy. MEDICATIONS: Outpatient medications included: 1. Lisinopril 5 mg a day. 2. Flomax 0.4 mg a day. 3. Vitamin D3. 4. Aspirin 81 mg a day. 5. Allopurinol 100 mg a day. Inpatient medications include: 1. Aspirin 81 mg a day. 2. Vitamin D. 3. Subcutaneous heparin. 4. Melatonin 3 mg q.h.s. 5. Flomax 0.4 mg a day. 6. P.r.n. nonsteroidals. 7. Allopurinol 100 mg a day. 8. Lasix 40 mg IV b.i.d. ALLERGIES: CODEINE and PENICILLIN. FAMILY HISTORY: Significant in that his father had a history of coronary disease who in his 70s, also peripheral vascular disease and bypass. He has a sibling with rheumatic disease and valve replacement, and diabetes runs in his mother's family. SOCIAL HISTORY: The patient is a former smoker, 4 packs a day for 35 years, but quit 30 years ago. Drinks 2 beers and 1 scotch a day. 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 to Griselda Hartman, who worked at the hospital for many years. REVIEW OF SYSTEMS: See history of present illness for orthopnea, PND. Sleeping in a recliner chair intermittently. One-month history of exertional dyspnea, lower extremity edema. He denies any recent travel other than his usual driving, any medications other than the nonsteroidals he has used recently. He denies chest pain, pressure, heaviness other than the colicky pain yet 3 days ago. All other review of systems was unremarkable. PHYSICAL EXAM: On exam, the patient is 6 feet, weighs 213 pounds with a BMI of 29. General Appearance: Centripetally overweight elderly male sitting at 80 degrees, mildly tachypneic. Vitals: Blood pressure 103/73, sinus tachycardia 105 beats a minute, temperature 98.1, oxygen saturation on room air 96%, respiratory rate is 22. On admission, blood pressure 128/90, pulse 100, sats 99%. I's and O's since admission shows urine output of 2.5 L and possible 10-pound weight loss although doubtful. Psychologically pleasant and cooperative. Neurologically awake, alert and oriented to person, place and time. He is quite hard of hearing. The cranial nerves appear otherwise intact. Pupils are equal and round. Mucous membranes moderately moist. Neck without appreciable increased JVP at 80 degrees. Palpable carotid pulses. No bruits. Breath sounds, crackles on the bases bilaterally. Coronary: A bit muffled and distant. S1, S2 regular without murmurs or rubs appreciated. Abdomen: Rotund. Active bowel sounds. Soft, nontender. No appreciable hepatosplenomegaly. Lower extremities had compression stockings on with trace edema of the ankles. DIAGNOSTIC STUDIES/LAB DATA: ECG in the emergency department, 12/25/16, at 1530 shows sinus tachycardia 100 beats a minute, QRS axis of 0. He has a right bundle branch block, right atrial enlargement, nonspecific diffuse ST changes compared with his prior baseline of 07/23/16. The sinus rate was increased from 65 beats a minute. The left atrial enlargement was new. The right bundle branch block was new and the ST changes are new. Chest x-ray showed bilateral pleural effusions and interstitial edema, unchanged from 12/24/16. CT angiogram in the ED yesterday shows negative for pulmonary embolus, large left pleural effusions with secondary atelectasis, new compared with CT of 07/23/16. Transthoracic echo was limited due to the patient's body habitus. It showed grossly normal left ventricular wall motion and systolic function with an ejection fraction of 55% to 60% with abnormal diastolic filling. The right ventricle was hypokinetic. All valves showed grossly normal function. There was aortic valve sclerosis, trace tricuspid insufficiency and no pulmonary hypertension was appreciated. Stress test from 07/23/16, Lexiscan Myoview was considered low risk with no inducible ischemia and an ejection fraction of 60%. Carotid Doppler study from 05/11/14 showed [id number] bilateral calcific plaque without evidence of hemodynamically significant stenosis. White count 5.7, hemoglobin 14.4, platelets 146. INR 1.02. D-dimer elevated at 526. Admission labs: Sodium 135, potassium 4.5, chloride 102, bicarb 28, BUN 17, creatinine 0.95, glucose 88, ALT of 18. Troponin #1 of 0.00. C- reactive protein 9.09. BNP of 172. Lipids from 07/23/16 showed total cholesterol 131, triglycerides 50, LDL cholesterol 70, HDL cholesterol 51. Urinalysis from 12/24/16; 3+ blood, trace white cells. IMPRESSION: In summary, Mr. Hartman is a 71-year-old gentleman with approximately 1-month history of dyspnea, lower extremity edema, orthopnea and paroxysmal nocturnal dyspnea, with chest x-ray evidence of congestive heart failure and effusions. These were also noted with his kidney stones and he has newly appreciated pleural effusions on chest x-ray and CT scan compared with a CT scan done July 2016. Mr. Hartman's symptoms are slowly progressive and there is very likely a significant contribution from diastolic dysfunction and potential contributors would include salt, nonsteroidal use following his lumbar surgery, hypertensive heart disease and tachycardia related to pain from his kidney stones recently, but could even worsen with his congestive heart failure and snow ball. I agree with the initiation of diuretics. I think that we should replace his ANJU inhibitor with a rate lowering agent, as discussed either calcium channel blockers such as Cardizem or metoprolol and after discussion, we will give him a trial of metoprolol. The patient is at high risk for malignant disease and his pleural effusion might be out of proportion to his diastolic failure. If he does not rapidly respond to diuresis with improvement in his effusions, we may want to consider a diagnostic tap, specifically looking for malignancy. As his EKG has changed with a new right bundle branch block, diffuse nonspecific ST changes, this may represent ischemia but preserved ejection fraction in the setting of tachycardia and the reassuring stress test in July 2016 just 5 months ago makes this less likely, so for now, I am going to hold off on repeating a stress test. The patient and his daughters were advised to avoid foods with salt, avoid use of nonsteroidals for now. Supportive care and looking for other potential comorbidities or contributing medical factors such as hypoxia related to chronic obstructive pulmonary disease , obstructive sleep apnea should also be pursued inpatient or outpatient. Additional recommendations will be made pending his response to the above measures. As his vitals tolerate, his beta amanda could be increased. CC: Norma Rae NP* [id number]/[facility] #: [id number] MTDKy
[2016-12-27] MEDS ORDERED: Acetaminophen TAB* 325 MG PO PRN (04:17)
[2016-12-27] MEDS: Heparin VIAL(*) 5000 UNITS/ML VIAL (FIVE THOUSAND) SUBCUT SCH ×3 (04:54→20:59)
[2016-12-27] MEDS: Tamsulosin CAP* 0.4 MG PO SCH (09:23)
[2016-12-27] MEDS: Cholecalciferol TAB* 1000 UNITS PO SCH (09:24)
[2016-12-27] MEDS: Allopurinol TAB* 100 MG PO SCH (09:24)
[2016-12-27] MEDS: Aspirin Low Dose CHEW TAB* 81 MG PO SCH (09:25)
[2016-12-27] MEDS: Metoprolol Succinate XL TAB* 25 MG PO SCH (09:49)
[2016-12-27] MEDS: Furosemide IV* 10 MG/ML VIAL (40 MG) IV SCH ×2 (11:51→16:55)
--- NOTE | 2016-12-27 17:30 | PN ---
Subjective Date of Service: 12/27/16 Interval History: Pt is feeling better. He still has moderate edema in his legs. His breathing is comfortable at rest. He states he did wake up in the middle of the night feeling like he couldn't catch his breath. This was similar to how he felt prior to coming into the hospital. Objective Active Medications: Acetaminophen (Tylenol Tab*) 650 mg PO Q6H PRN PRN Reason: FEVER/PAIN Last Admin: 12/27/16 04:53 Dose: 650 mg Allopurinol (Zyloprim Tab*) 100 mg PO DAILY [facility] Last Admin: 12/27/16 09:24 Dose: 100 mg Aspirin (Aspirin Low Dose Tab*) 81 mg PO DAILY [facility] Last Admin: 12/27/16 09:25 Dose: 81 mg Cholecalciferol (Vitamin D Tab*) 4,000 units PO DAILY [facility] Last Admin: 12/27/16 09:24 Dose: 4,000 units Furosemide (Lasix Iv*) 40 mg IV 0800,1700 [facility] Last Admin: 12/27/16 16:55 Dose: 40 mg Heparin Sodium (Porcine) (Heparin Vial(*)) 5,000 units SUBCUT Q8HR [facility] Last Admin: 12/27/16 14:43 Dose: 5,000 units Melatonin (Melatonin (Nf)) 3 mg PO BEDTIME [facility] Last Admin: 12/26/16 20:12 Dose: 3 mg Metoprolol Succinate (Toprol Xl Tab*) 12.5 mg PO BEDTIME [facility] Tamsulosin HCl (Flomax Cap*) 0.4 mg PO DAILY [facility] Last Admin: 12/27/16 09:23 Dose: 0.4 mg Vital Signs 12/26/16 12/26/16 12/26/16 18:51 19:30 23:34 Temperature 98.3 F 98.3 F Pulse Rate 105 93 Respiratory 16 24 16 Rate Blood Pressure 107/74 103/78 (mmHg) O2 Sat by Pulse 95 98 Oximetry 12/27/16 12/27/16 12/27/16 03:45 03:51 07:32 Temperature 98.1 F 98.1 F 97.3 F Pulse Rate 82 84 84 Respiratory 16 20 16 Rate Blood Pressure 89/63 94/68 91/70 (mmHg) O2 Sat by Pulse 97 96 97 Oximetry 12/27/16 12/27/16 12/27/16 08:00 09:11 11:15 Temperature 97.7 F Pulse Rate 81 Respiratory 16 16 Rate Blood Pressure 88/68 (mmHg) O2 Sat by Pulse 95 Oximetry 12/27/16 12/27/16 12/27/16 11:28 11:30 15:32 Temperature 98.3 F Pulse Rate 88 Respiratory 20 Rate Blood Pressure 111/90 104/74 109/80 (mmHg) O2 Sat by Pulse 96 Oximetry Oxygen Devices in Use Now: None Appearance: Elderly male sitting up in bed, NAD Eyes: No Scleral Icterus Ears/Nose/Mouth/Throat: Mucous Membranes Moist Respiratory: Symmetrical Chest Expansion and Respiratory Effort, Clear to Auscultation - few bibasilar crackles Cardiovascular: NL Sounds; No Murmurs; No JVD, RRR, - - 1+ pitting edema of the B/L LE Abdominal: NL Sounds; No Tenderness; No Distention Extremities: No Clubbing, Cyanosis Skin: No Rash or Ulcers, No Nodules or Sclerosis Neurological: Alert and Oriented x 3 Result Diagrams: 12/25/16 16:40 12/26/16 04:53 Additional Lab and Data: Lab Results 12/25/16 12/25/16 12/25/16 Range/Units 16:39 16:40 16:40 WBC 5.7 (3.5-10.8) 10^3/ul RBC 4.61 (4.0-5.4) 10^6/ul Hgb 14.4 (14.0-18.0) g/dl Hct 44 (42-52) % MCV 96 H (80-94) fL MCH 31 (27-31) pg MCHC 33 (31-36) g/dl RDW 15 (10.5-15) % Plt Count 146 L (150-450) 10^3/ul MPV 10 (7.4-10.4) um3 Neut % (Auto) 71.9 (38-83) % Lymph % (Auto) 14.3 L (25-47) % Barron % (Auto) 10.5 H (1-9) % Eos % (Auto) 2.7 (0-6) % Baso % (Auto) 0.6 (0-2) % Absolute Neuts (auto) 4.1 (1.5-7.7) 10^3/ul Absolute Lymphs (auto) 0.8 L (1.0-4.8) 10^3/ul Absolute Monos (auto) 0.6 (0-0.8) 10^3/ul Absolute Eos (auto) 0.2 (0-0.6) 10^3/ul Absolute Basos (auto) 0 (0-0.2) 10^3/ul Absolute Nucleated RBC 0.01 10^3/ul Nucleated RBC % 0.1 INR (Anticoag Therapy) (0.89-1.11) APTT (26.0-36.3) seconds D-Dimer, Quantitative (Less Than 230) ng/mL Sodium 135 (133-145) mmol/L Potassium 4.5 (3.5-5.0) mmol/L Chloride 102 (101-111) mmol/L Carbon Dioxide 28 (22-32) mmol/L Anion Gap 5 (2-11) mmol/L BUN 17 (6-24) mg/dL Creatinine 0.95 (0.67-1.17) mg/dL Est GFR ( Amer) 100.2 (>60) Est GFR (Non-Af Amer) 77.9 (>60) BUN/Creatinine Ratio 17.9 (8-20) Glucose 88 (70-100) mg/dL Lactic Acid 0.9 (0.5-2.0) mmol/L Calcium 8.9 (8.6-10.3) mg/dL Total Bilirubin 0.70 (0.2-1.0) mg/dL AST 24 (13-39) U/L ALT 18 (7-52) U/L Alkaline Phosphatase 87 (34-104) U/L Total Creatine Kinase 24 (10-223) U/L CK-MB (CK-2) 1.7 (0.6-6.3) ng/mL Troponin I 0.00 (<0.04) ng/mL C-Reactive Protein 9.09 H (< 5.00) mg/L B-Natriuretic Peptide ( - 100) pg/mL Total Protein 6.2 L (6.4-8.9) g/dL Albumin 3.5 (3.2-5.2) g/dL Globulin 2.7 (2-4) g/dL Albumin/Globulin Ratio 1.3 (1-3) 12/25/16 12/25/16 Range/Units 16:40 16:40 WBC (3.5-10.8) 10^3/ul RBC (4.0-5.4) 10^6/ul Hgb (14.0-18.0) g/dl Hct (42-52) % MCV (80-94) fL MCH (27-31) pg MCHC (31-36) g/dl RDW (10.5-15) % Plt Count (150-450) 10^3/ul MPV (7.4-10.4) um3 Neut % (Auto) (38-83) % Lymph % (Auto) (25-47) % Barron % (Auto) (1-9) % Eos % (Auto) (0-6) % Baso % (Auto) (0-2) % Absolute Neuts (auto) (1.5-7.7) 10^3/ul Absolute Lymphs (auto) (1.0-4.8) 10^3/ul Absolute Monos (auto) (0-0.8) 10^3/ul Absolute Eos (auto) (0-0.6) 10^3/ul Absolute Basos (auto) (0-0.2) 10^3/ul Absolute Nucleated RBC 10^3/ul Nucleated RBC % INR (Anticoag Therapy) 1.02 (0.89-1.11) APTT 27.8 (26.0-36.3) seconds D-Dimer, Quantitative 526 H (Less Than 230) ng/mL Sodium (133-145) mmol/L Potassium (3.5-5.0) mmol/L Chloride (101-111) mmol/L Carbon Dioxide (22-32) mmol/L Anion Gap (2-11) mmol/L BUN (6-24) mg/dL Creatinine (0.67-1.17) mg/dL Est GFR ( Amer) (>60) Est GFR (Non-Af Amer) (>60) BUN/Creatinine Ratio (8-20) Glucose (70-100) mg/dL Lactic Acid (0.5-2.0) mmol/L Calcium (8.6-10.3) mg/dL Total Bilirubin (0.2-1.0) mg/dL AST (13-39) U/L ALT (7-52) U/L Alkaline Phosphatase (34-104) U/L Total Creatine Kinase (10-223) U/L CK-MB (CK-2) (0.6-6.3) ng/mL Troponin I (<0.04) ng/mL C-Reactive Protein (< 5.00) mg/L B-Natriuretic Peptide 172 H ( - 100) pg/mL Total Protein (6.4-8.9) g/dL Albumin (3.2-5.2) g/dL Globulin (2-4) g/dL Albumin/Globulin Ratio (1-3) Assess/Plan/Problems-Billing Mr Hartman is a 71 yo M with a h/o HTN and gout who presented to the ER with c/ o SOB and pleural effusions on recent CT scan. He was admitted for evaluation of acute decompensated CHF. - Patient Problems (1) Heart failure with preserved ejection fraction Current Visit: Yes Status: Acute Code(s): I50.30 - UNSPECIFIED DIASTOLIC ( CONGESTIVE) HEART FAILURE SNOMED Code(s): 95054020 Comment: appreciate cardiology evaluation. Will continue with diuresis. ? diastolic dysfunction related to long standing HTN with age related changes made worse with tachycardia and recent meal high in sodium. He is improving with IV diuresis. He will likely be ready for d/c home tomorrow. Dr. Singh started metoprolol XL last night for HR control- will continue this but at a lower dose as he became hypotensive this AM. The large L pleural effusion is likely related to CHF but it is odd that it is unilateral. He has an extensive smoking history which puts him at risk for lung malignancy however at this time will not pursue thoracentesis to send for cytology as no clear mass/nodule was seen on the CT imaging and he does not describe any unexplained weight loss. If the effusion fails to improve with treatment for CHF a thoracentesis would be indicated. (2) HTN (hypertension) Current Visit: Yes Status: Acute Code(s): I10 - ESSENTIAL (PRIMARY) HYPERTENSION SNOMED Code(s): 99331020 Comment: BP is excellent now on metoprolol XL. (3) Chronic alcohol use Current Visit: Yes Status: Acute Code(s): F10.10 - ALCOHOL ABUSE, UNCOMPLICATED SNOMED Code(s): 051242 Comment: No signs of EtOH withdrawal. He drinks about 3 alcoholic beverages/ day. Encourage abstinence. (4) Gout Current Visit: Yes Status: Acute Code(s): M10.9 - GOUT, UNSPECIFIED SNOMED Code(s): 61476493 Comment: No active disease at this time. Continue allopurinol. (5) DVT prophylaxis Current Visit: Yes Status: Acute Code(s): BKC1043 - SNOMED Code(s): 059903210 Comment: SQ Heparin (6) Full code status Current Visit: Yes Status: Acute Code(s): Z78.9 - OTHER SPECIFIED HEALTH STATUS SNOMED Code(s): 394669090
[2016-12-27] MEDS ORDERED: Metoprolol Succinate XL TAB* 25 MG PO SCH (21:00)
[2016-12-27] MEDS: CMCS Melatonin (NF) 3 MG TAB PO SCH (21:47)
[2016-12-28] MEDS: Heparin VIAL(*) 5000 UNITS/ML VIAL (FIVE THOUSAND) SUBCUT SCH ×2 (05:11→13:02)
[2016-12-28] MEDS: Aspirin Low Dose CHEW TAB* 81 MG PO SCH (08:06)
[2016-12-28] MEDS: Cholecalciferol TAB* 1000 UNITS PO SCH (08:07)
[2016-12-28] MEDS: Allopurinol TAB* 100 MG PO SCH (08:07)
[2016-12-28] MEDS: Tamsulosin CAP* 0.4 MG PO SCH (08:07)
[2016-12-28] MEDS: Furosemide IV* 10 MG/ML VIAL (40 MG) IV SCH (08:07)
[2016-12-28 11:11] VITALS: BP 100/72
--- NOTE | 2016-12-29 08:23 | DS ---
DISCHARGE SUMMARY: DATE OF ADMISSION: 12/25/16 DATE OF DISCHARGE: 12/28/16 PRIMARY CARE PROVIDER: Norma Rae NP YOKE SETTER: Dr. Singh. PRINCIPAL DIAGNOSIS: Acute diastolic congestive heart failure. SECONDARY DIAGNOSES: 1. History of tobacco abuse. 2. Hypertension. 3. Chronic alcohol use. 4. Gout. DISCHARGE MEDICATIONS: 1. Flomax 0.4 mg p.o. daily. 2. Aspirin 81 mg p.o. daily. 3. Vitamin D3 4000 units p.o. daily. 4. Allopurinol 100 mg p.o. daily. 5. Metoprolol XL 12.5 mg p.o. q.h.s. (new). 6. Lasix 20 mg p.o. daily (new). Discontinued medications: Lisinopril. HOSPITAL COURSE: Mr. Hartman is a 71-year-old male, who presented to the emergency room this past Saturday with complaints of flank pain. At that time, he was diagnosed with a kidney stone and discharged home. A CT scan from that hospitalization, however, revealed bilateral pleural effusions and a small pericardial effusion. The patient followed up with his primary care provider, who was concerned about the effusion and sent him back to the emergency room for evaluation of heart failure. The patient underwent transthoracic echocardiogram, which revealed normal systolic function, but diastolic dysfunction. The patient was managed for acute diastolic congestive heart failure with IV Lasix. The patient improved quite rapidly. He dropped approximately 14 pounds since being hospitalized. The patient's breathing is much more comfortable especially while lying flat. He has almost no lower extremity edema at this point. The patient was seen in consultation by Dr. Singh for helping to determine the etiology of his diastolic dysfunction. [place] that this likely represented normal aging changes perhaps with diastolic function being worsened by tachycardia, recent meal high in salt, and hypertension. It was recommended to change the patient's antihypertensive from lisinopril to metoprolol to help control the heart rate as he was mildly tachycardic. The patient has been started on metoprolol XL and with this, heart rate is under better control in the 70s. His blood pressure, however, is also low in the 90s to low 100s. The patient has been instructed to take this medication at night; therefore, if his blood pressure drops while is sleeping, he is asymptomatic from this. At this point, the patient is felt to be stable for discharge home. On the day of discharge, the patient is awake, alert, and oriented, sitting up in bed, in no acute distress. Cardiac Exam: Reveals a normal S1 and S2. Regular rate and rhythm without any murmurs. He has trace lower extremity edema , which has improved from prior. His pulmonary exam did reveal bibasilar crackles. His abdomen was soft, nontender, and nondistended. The patient will continue on Lasix 20 mg p.o. daily as well as the new dose of metoprolol XL 12.5 mg p.o. daily. I have asked that the patient follow up with his primary care provider in the next 4 to [address] Singh in approximately 1 month. Of note, if the patient's pleural effusion does not improve, a thoracentesis should be considered as an outpatient. He has a very large left pleural effusion and much smaller right pleural effusion. Given his smoking history, cancer could be the cause of the pleural effusion especially if it is not improve with treatment for heart failure. FOLLOWUP CONCERNS: The patient is being discharged home today, 12/28/16. ACTIVITY: Level is as tolerated. DIET: Low salt. CONDITION ON DISCHARGE: Stable. TIME SPENT: Forty-five minutes was spent discharging this patient. CC: Norma Rae NP; Dr. Singh * [id number]/[facility] #: [id number] MTDD
== END 2016-12-28 14:00 | disposition home or self-care (01) | DRG 292 ==
LOC: ED 15:09 → MEDTELE 20:14 → OBSVTOIN 12-26 15:41
PROVIDERS: ADMIT Hospitalist; ATTEND Hospitalist
DX: I11.0 Hypertensive heart disease with heart failure (principal); J98.11 Atelectasis; I45.10 Unspecified right bundle-branch block; Z72.89 Other problems related to lifestyle; M10.9 Gout, unspecified; Z79.82 Long term (current) use of aspirin; Z87.440 Personal history of urinary (tract) infections; Z88.0 Allergy status to penicillin; Z88.5 Allergy status to narcotic agent; Z98.1 Arthrodesis status; Z82.49 Family history of ischemic heart disease and other diseases of the circulatory system; Z83.3 Family history of diabetes mellitus; Z87.891 Personal history of nicotine dependence; N20.0 Calculus of kidney; I50.33 Acute on chronic diastolic (congestive) heart failure; N40.0 Benign prostatic hyperplasia without lower urinary tract symptoms
CPT/HCPCS: 36415; 71020; 71275; 80048; 80053; 82550; 82553; 83605; 83880; 84484; 85025; 85379; 85610; 85730; 86140; 93005; 93306; 94002; 94760; A9270-GY; J1644; J1940; Q9967

== ENCOUNTER 2017-01-18 06:08 | Day surgery (SDC) | payer MEDICARE, OTHER ==
--- NOTE | 2017-01-17 09:53 | HP ---
CC: [facility] * HISTORY AND PHYSICAL: DATE OF PLANNED ADMISSION AND SURGERY: 01/18/17 HISTORY: Mr. Hartman is a 71-year-old white male who is admitted with a right ureteral calculus for cystoscopy, right ureteroscopy, laser lithotripsy, and right ureteral stent placement. Mr. Hartman's history goes back to about three weeks ago when he presented to the emergency room with symptoms of right renal colic. He had a non-contrast CT of the abdomen and pelvis which showed a 6-mm calculus in the proximal right ureter associated with moderate hydronephrosis. He was managed conservatively and was about to be sent home; however, he was noted on the CT scan to have bilateral pleural effusion and a small pericardial effusion. Because of that finding, he was admitted and had a Cardiology consultation and was noted to be in diastolic congestive heart failure. This was managed with diuretic and a small dose of metoprolol. He did fine and was discharged home. The patient was then evaluated in my office on 01/09/17. He had a renal ultrasound which continued to show moderate right hydronephrosis, and there was a 6-mm to 7-mm calculus noted in the mid ureter. Because of that finding, the position of the stone, and the associated hydronephrosis, the patient is admitted for the above procedure. The patient was recently seen in followup Cardiology consultation by Dr. Singh. She felt that his cardiac condition has improved and she cleared him up for surgery. I am including a copy of her Cardiology evaluation and consultation, as well as his medical physical exam. PAST MEDICAL HISTORY: He has a history of gout, renal calculus disease, past history of appendectomy, and a lumbar laminectomy in 2016. ALLERGIES: He reports being ALLERGIC to PENICILLIN which gives him a skin rash , and has some nausea to CODEINE. PERSONAL HISTORY: He is a former smoker. He drinks about 3 beers per day, and 1 or 2 drinks. He does not exercise regularly. PHYSICAL EXAMINATION GENERAL: A pleasant white male who is overweight. VITAL SIGNS: Blood pressure 120/80 and pulse of 80. LUNGS: Clear. HEART: Regular and rhythmic. No murmurs. ABDOMEN: Soft. No masses, no tenderness, and no CVA tenderness. EXTERNAL GENITALIA: Normal. RECTAL: Shows a slightly enlarged, but nonsuspicious prostate. IMPRESSION: 1. Right ureteral calculus, 6-mm to 7-mm in size by ultrasound with associated right hydronephrosis, which is still in the mid ureter 2-1/2 weeks after diagnosis. 2. Diastolic heart failure, corrected. PLAN: Plan is for cystoscopy, right ureteroscopy, laser lithotripsy, and right ureteral stent placement. If the stone is not reachable with the ureteroscope, then the procedure will be staged by placing a ureteral stent and bringing him back at a later date for definitive treatment of the stone. I discussed the above plans with the patient. All his questions were answered. [id number]/[facility] #: [id number] ANANTH
[~2017-01-18 06:08] MED LIST changes: -Iohexol 300* (CONTRAST) 10 ML SDV IV ONE; +Levofloxacin 750 MG IVPREMIX(* 750 MG/150 ML BAG IVPB ONE; -Morphine INJ* 2 MG/ML 1 ML SYRINGE IV ONE; -NS 0.9% 1000 ML* 1,000 ML IV ONE; -Ondansetron INJ* 2 MG/ML VIAL IV ONE; -Tamsulosin CAP* 0.4 MG PO ONE
[2017-01-18] MEDS ORDERED: Levofloxacin 750 MG IVPREMIX(* 750 MG/150 ML BAG ONE (06:16)
[2017-01-18] MEDS ORDERED: Buffered Lidocaine 0.9% SYRIN* 5 ML/SYR SYRINGE ONE (06:17)
[2017-01-18] MEDS ORDERED: Iohexol 180 (CONTRAST) 10 ML SDV IV ONE ×2 (07:20→09:36)
[2017-01-18] MEDS ORDERED: Midazolam* 1 MG/ML 2 ML VIAL (2 MG) ONE (07:56)
[2017-01-18] MEDS ORDERED: fentaNYL* 50 MCG/ML 2 ML VIAL (100 MCG VIAL) ONE (07:56)
[2017-01-18] MEDS ORDERED: Phenylephrine IV* 40 MCG/ML 10 ML SYRINGE ONE (08:19)
[2017-01-18] MEDS ORDERED: HYDROmorphone* 1 MG/ML 1 ML SYR IV PRN (09:05)
[2017-01-18] MEDS ORDERED: fentaNYL* 50 MCG/ML 2 ML VIAL (100 MCG VIAL) IV PRN (09:05)
[2017-01-18] MEDS ORDERED: Lidocaine 2% PF * 5 ML VIAL ONE (09:20)
[2017-01-18] MEDS ORDERED: Ondansetron INJ* 2 MG/ML VIAL ONE (09:20)
[2017-01-18] MEDS ORDERED: Dexamethasone IV* 4 MG/ML 1 ML (4 MG) ONE (09:20)
[2017-01-18] MEDS ORDERED: Propofol* 10 MG/ML 20 ML BTL IV PUSH ONE (09:20)
--- NOTE | 2017-01-18 09:45 | RAD ---
INDICATION: RIGHT retrograde pyelogram, ureteroscopy, laser lithotripsy, stent placement. COMPARISON: December 23, 2016 CT. TECHNIQUE: 9 seconds fluoroscopy. FINDINGS: RIGHT retrograde pyelogram demonstrates only minimal calyceal blunting. RIGHT ureteral stent placed. IMPRESSION: Procedural fluoroscopy. CPT II Codes: 6045F
[2017-01-18 13:04] VITALS: BP 148/104
--- NOTE | 2017-01-18 14:17 | OP ---
CC: Dr. Singh; [facility] in [place] * DATE OF OPERATION: 01/18/17 - [facility] DATE OF : 43 SURGEON: Servando Hubbard MD. ANESTHESIOLOGIST: Dr. Matt. ANESTHESIA: General. PRE-OP DIAGNOSIS: Right ureteral calculus (6 mm). POST-OP DIAGNOSES: 1. Bulbar urethral stricture. 2. Right ureteral calculus. OPERATIVE PROCEDURE: 1. Cystoscopy. 2. Direct internal optical urethrotomy. 3. Right ureteroscopy and extraction of right ureteral stone fragments. 4. Right retrograde pyelography and placement of right ureteral stent (6-Maltese ). INDICATION FOR PROCEDURE: Mr. Hartman is a 71-year-old white male who was diagnosed 3 weeks ago with a 6-mm calculus in the proximal right ureter causing right renal colic. His work-up at that time showed also bilateral pleural effusions and small pericardial effusion. He was admitted and had a cardiology consultation and was diagnosed with right heart failure. He was treated for the condition ans cleared for anesthesia. Reevaluation showed the right ureteral calculus to be still in the mid ureter. Because of the above history and finding, the patient admitted for the above procedure. PATHOLOGY AT CYSTOSCOPY: There was a tight stricture in the proximal bulbar urethra just distal to the external sphincter. The stricture was dense and tight extending over a distance of about 1.5 cm. The stricture was not involving the membranous urethra. The prostatic urethra measured 2.5 cm in length and there was moderate degree of obstruction by prostate enlargement. Examination of the bladder showed moderate diffuse trabeculations. There were no suspicious bladder lesions seen. There was some edema of the right ureteral orifice and stone fragment was seen protruding just proximal to the orifice itself. The appearance of the stone fragment was that of a calcium oxalate stone. Upon right ureteroscopy, there was another stone fragment measuring about 5 mm located in the distal ureter about 4 or 5 cm above the ureterovesical junction. The stone was friable and again had the appearance of calcium oxalate stone. No other calculi were seen. DESCRIPTION OF PROCEDURE: After successful general anesthesia, the patient was placed in the lithotomy position and was prepped and draped for a cystoscopy. A cystoscopy was performed. The tight stricture in the bulbar urethra was noted and could not be dilated with the cystoscope. A flexible-tip guidewire was then introduced through the stricture and passed inside the bladder. The cystoscope was removed keeping the guidewire in place. A direct internal optic urethrotome was then placed and the stricture was divided at 12 o' clock with a cold knife guided by the guidewire. The stricture was divided through the full length of the scarring, but did not open the corpus spongiosum. The cystoscope was then introduced inside the bladder and the bladder was carefully inspected and the above findings were noted. The stone fragment at the Rt ureteral orifice was manipulated and was extracted. A flexible tip guidewire was then introduced into the right ureter and positioned in the area of the renal pelvis. A size 6.5 semi-rigid ureteroscope was then introduced inside the bladder. A flexible tip basket was then introduced through the port of the ureteroscope and the flexible tip of the basket was introduced inside the right ureter, guiding the ureteroscope safely in the ureteral lumen. The main portion of the stone was noted in the distal third of the ureter. The basket was deployed and the stone was engaged and broke to multiple pieces when the basket was closed. The larger fragments were extracted and sent for stone analysis. Ureteroscopy was then performed all the way into the level of the ureteropelvic junction and no other stones were noted. Retrograde pyelography was then performed demonstrating a decompressed system and no extravasation. A size 6-Maltese stent was then placed with the proximal end coiling in the renal pelvis and the distal end coiling inside the bladder. A size 18-Maltese Allen catheter was then passed inside the bladder and the balloon inflated with 10 cc of water. The patient tolerated the procedure well and left the operating room in good condition. The plan is to leave the Allen catheter in place for 3 to 4 days to allow the healing of the stricture and the stent will be removed in another week or so. [id number]/[facility] #: [id number] [facility]
== END 2017-01-18 13:05 | disposition home or self-care (01) ==
LOC: OR 06:08
PROVIDERS: ATTEND Urology
PROC: 0T768DZ Dilation of Right Ureter with Intraluminal Device, Via Natural or Artificial Opening Endoscopic (ICD-10-PCS; 2017-01-18)
PROC: 0TC68ZZ Extirpation of Matter from Right Ureter, Via Natural or Artificial Opening Endoscopic (ICD-10-PCS; principal; 2017-01-18 07:45)
DX: N13.2 Hydronephrosis with renal and ureteral calculous obstruction (principal)
CPT/HCPCS: 74420; 82365; 88300; C1876; J1100; J2250; J2405; J2704; J3010

== ENCOUNTER → 2017-07-09 08:02 | Day surgery (SDC) | payer MEDICARE ==
[~2017-07-09 08:02] MED LIST changes: +Heparin 2 UNITS/ML IVPREMIX* 3,000 ML IV ONE; +Heparin(*) 1000 UNIT/ML 10 ML VIAL CATH LAB IV ONE; +Iohexol 350 (CONTRAST) 200 ML MDV IV ONE; -Levofloxacin 750 MG IVPREMIX(* 750 MG/150 ML BAG IVPB ONE; +Lidocaine 1% INJ* 10 MG/ML 30 ML SDV ONE; +Midazolam* 1 MG/ML 10 ML VIAL (10 MG) ONE; +NS 0.9% 1000 ML* 1,000 ML IV SCH; +VERAPAMIL 2.5 MG/ML 4 ML VIAL ONE; +fentaNYL* 50 MCG/ML 2 ML VIAL (100 MCG VIAL) ONE; +nitroGLYCERIN DRIP* 25,000 MCG/250 ML BTL ONE
[2017-07-09 13:25] VITALS: BP 99/68
--- NOTE | 2017-07-11 04:00 | CATH ---
CC: Dr. Gomes; Kayla Singh MD * CATH REPORT: DATE OF PROCEDURE: 07/09/17 - [facility] CATH DATE OF DICTATION: 07/10/17 PRIMARY CARE PHYSICIAN: Dr. Gomes. INDIVIDUAL PENSION ADVISER: Kayla Singh MD PROCEDURE: Right radial artery access, right antecubital access, bilateral selective coronary cineangiography, left heart catheterization, left ventriculography, simultaneous measurement of RV and LV pressure with spontaneous respiration. HISTORY: This 72-year-old male with preserved LV systolic function, diastolic heart failure with primarily right-sided fluid retention and pleural effusions. He was referred for diagnostic right and left heart catheterization and coronary angiography to evaluate for etiology of heart failure. PROCEDURE ACCESS: Right radial artery sheath 6F Slender. Right antecubital vein exchanged for 5-Angolan venous sheath. CATHETERS: 5F Millington-Melina, 5F TIG4, 5F pigtail, 6F L3.5. MEDICATIONS: 1. Subcu lidocaine. 2. IV Versed. 3. IV fentanyl. 4. Heparin 3000 units. 5. Verapamil 3 mg. 6. Nitroglycerin 300 mcg IA. After arterial access and exchange of the right antecubital IV for a 5-Angolan venous sheath, right-sided pressures were recorded at rest. The pigtail was then introduced. Simultaneous RV and LV pressures were recorded with spontaneous respiration. LV gram was then performed followed by bilateral selective coronary cineangiography after which the Millington was again used to measure wedge pressure and PA pressure, then for simultaneous recording of RV and LV pressure after the pigtail was introduced. A hemostatic band was used for hemostasis. HEMODYNAMICS: Initial resting RA mean 14, RV 28/13-17, wedge mean 22, PA 27/17 , mean 21, LV 100/8-20. With simultaneous RV and LV recording, RV 28/13-17, LV 102/9-21. RVDP and LVDP remained within 5 mmHg. After LV gram and coronary angiography, wedge mean 17, PA 33/19, mean 25, LV 98/ 11- 30, RV 32/15-19. Again, RVDP and LVDP within 5 mmHg with a square root sign. Systolic LV and RV pressures moved concordantly with spontaneous respiration with inspiratory fall. ANGIOGRAPHY: LV Gram: Papillary muscles are prominent. There is near-cavity obliteration, some uncoiling of the aorta. No mitral regurgitation. Visually estimated LVEF 65%. RCA: The RCA is moderate, dominant with a moderate PDA and smaller posterolateral, interestingly there is prolonged hang-up of contrast in the myocardial blush. 30% proximal RCA stenosis is likely due to spasm at the catheter tip. Left Main: The left main is relatively long, has no stenosis. LAD: The LAD has proximal calcification, supplies a moderate first diagonal branch, followed by moderate second diagonal after which the LAD has a 20% stenosis, the LAD extends to the apex. Circumflex: The circumflex is not dominant, is retroflexed and moderate, supplies a ccozr-ta-brjcerux first marginal, ends with a etzau-vi-tyowcovg posterolateral, circumflex has no significant stenosis. CONCLUSION: 1. No significant obstructive coronary artery disease. 2. Normal LV systolic function. 3. Elevated biventricular filling pressures with LVDP and RVDP within 5 mmHg at 2 different filling pressures, and concordant fall in RV/LV systolic pressure with inspiration, consistent with restrictive myocardial physiology. Of note, the patient has been diuresed about 10 to 15 pounds since presentation last spring. 4. There is room for additional diuresis. 5. Successful right radial and right antecubital access. [id number]/[facility] #: [id number] ANANTH
== END | disposition home or self-care (01) ==
LOC: CHICATH 08:02
PROVIDERS: ATTEND Internal Medicine Cardiovascular Disease
DX: I25.10 Atherosclerotic heart disease of native coronary artery without angina pectoris (principal); I50.30 Unspecified diastolic (congestive) heart failure; R06.02 Shortness of breath; J90 Pleural effusion, not elsewhere classified; I42.8 Other cardiomyopathies; I27.81 Cor pulmonale (chronic); Z79.82 Long term (current) use of aspirin; Z88.0 Allergy status to penicillin; Z88.5 Allergy status to narcotic agent; Z85.820 Personal history of malignant melanoma of skin; Z72.0 Tobacco use
CPT/HCPCS: 93460; 99156; 99157; C1887; J1644; J2250; J3010

== ENCOUNTER → 2017-09-20 11:59 | Day surgery (SDC) | payer MEDICARE ==
[2017-09-20 12:23] VITALS: BP 110/80
--- NOTE | 2017-09-20 14:46 | RAD ---
HISTORY: Status post thoracentesis COMPARISONS: None VIEWS: 1: frontal portable view of the chest at 2:17 PM. The patient is obliqued to the right. FINDINGS: LINES AND TUBES: None. CARDIOMEDIASTINAL SILHOUETTE: The cardiomediastinal silhouette is normal for portable technique. PLEURA: There is a small left-sided pleural effusion. There is no appreciable pneumothorax. LUNG PARENCHYMA: The lungs are clear. ABDOMEN: The upper abdomen is clear. There is no subphrenic gas. BONES AND SOFT TISSUES: No bone or soft tissue abnormalities are noted. IMPRESSION: SMALL LEFT PLEURAL EFFUSION. NO APPRECIABLE PNEUMOTHORAX.
--- NOTE | 2017-09-20 15:16 | RAD ---
Indication: Ultrasound marking for LEFT thoracentesis. Comparison: September 17, 2017 chest radiograph. Technique: Limited ultrasound of the LEFT chest. Report: With the patient sitting ultrasound of the posterior inferior LEFT thorax was performed. Skin over the dominant pocket of pleural fluid marked for Dr. Tran. IMPRESSION: LEFT thorax ultrasound marking for thoracentesis.
--- NOTE | 2017-09-23 03:47 | PRO ---
THORACENTESIS REPORT: DATE OF PROCEDURE: 09/20/17 PROCEDURE PERFORMED: Ultrasound-guided thoracentesis on left side. PREPROCEDURAL DIAGNOSIS: Moderate sized left pleural effusion. INDICATION FOR THE PROCEDURE: Diagnostic and therapeutic. ANESTHESIA: Local anesthesia with 5 mL of 1% lidocaine. DESCRIPTION OF PROCEDURE: Informed consent was obtained from the patient prior to the procedure after all the risks and benefits were thoroughly explained. The patient was recently being evaluated for recurrent pleural effusions and pericardial effusion. The patient also with significant cough and procedure was scheduled for both diagnostic and therapeutic purposes. Appropriate time- out was agreed on by attending staff prior to the procedure. The patient was sitting up and leaning forwards. Strict aseptic precautions and appropriate barrier techniques were all followed. A portable ultrasound was utilized at bedside. Skin was disinfected with Chlorhexidine topical solution. A CareFusion 8-Mohawk thoracentesis catheter was utilized. Site was marked with the help of ultrasound on the left chest posteriorly in posterior axillary line in 8th intracostal space. 1% lidocaine was instilled intradermally subcutaneously down into the pleural space taking precautions. A #11 scalpel blade was utilized to make a stab incision to facilitate passage of bigger needle and the catheter. An 8-Mohawk CareFusion thoracentesis catheter was then inserted under manual suction taking precautions. The catheter was left in space and needle was removed. Fluid was free flowing and was removed under manual suction. 1.5 L of dark dark yellow fluid was drained under manual suction. The patient reported some discomfort towards the end, fluid was still free flowing at that time. Catheter was removed and a bandage was applied to the area. Post-procedure chest x-ray was ordered and is pending at this time. Specimen was sent into the lab for biochemical, hematological and cytological examination. [id number]/[facility] #: [id number] [facility]IT[facility]y
== END | disposition home or self-care (01) ==
LOC: OR 11:59
PROVIDERS: ATTEND Internal Medicine
DX: J90 Pleural effusion, not elsewhere classified (principal); I27.20 Pulmonary hypertension, unspecified; R06.02 Shortness of breath; I50.32 Chronic diastolic (congestive) heart failure; Z87.891 Personal history of nicotine dependence; R05 Cough; R09.02 Hypoxemia
CPT/HCPCS: 32554; 36415; 71045; 76604; 82042; 82150; 82945; 83615; 83986; 84157; 84166; 84302; 87070; 87205; 88112; 88305; 88341; 88342; 89051; 89060

== ENCOUNTER 2018-09-21 12:27 | Inpatient (IN) | payer MEDICARE ==
--- OUTSIDE RECORDS SUMMARY | 2018-09-21 12:37 | XMS REPORT | Continuity of Care Document ---
:1945 External Reference #:[id number] Author Name Lori Ragland Care Team Providers Name Role Phone Geraldo Gomes MD Primary Care Physician Unavailable Payers Type Date Identification Numbers Payment Provider Subscriber Effective: Policy Number: [id number] Medicare Blue o Komal Bush 2017 PayID: [id number] [address] [address] [place] [address] Expires: 2017 Policy Number: [id number] [employer] Komal Bush PayID: [id number] [address] [place] [address] Expires: 2017 Policy Number: [id number] Va/ Non Va Care Komal Bush PayID: [id number] [address] [address] [place] [address] Advance Directives Description No Information Available Problems Date Description Provider Status Onset: 07/25/2015 Spinal stenosis of lumbar region Wyatt Mims M.D. Active Onset: 07/25/2015 Acquired spondylolisthesis Wyatt Mims M.D. Active Onset: 09/26/2015 Convalescence after surgery Wyatt Mims M.D. Active Onset: 01/15/2017 Chronic diastolic heart failure Kayla Singh M.D. Active Onset: 01/15/2017 Preoperative cardiovascular examination Kayla Singh M.D. Active Onset: 06/14/2017 Cardiomyopathy Kayla Singh M.D. Active Onset: 07/03/2017 Heart failure, unspecified Kayla Singh M.D. Active Onset: 08/06/2017 Congenital stenosis of aortic valve Kayla Singh M.D. Active Onset: 08/06/2017 Pleural effusion, not elsewhere Kayla Singh M.D. Active classified Onset: 08/06/2017 Allergic contact dermatitis due to Kayla Singh M.D. Active adhesive Onset: 09/13/2017 Pulmonary hypertension Kayla Singh M.D. Active Onset: 09/13/2017 Chronic pulmonary heart disease Kayla Singh M.D. Active Onset: 04/04/2018 Primary cardiomyopathy Kayla Singh M.D. Active Family History Date Family Member(s) Problem(s) Comments General Heart Disease General [place] General Sister had rheumatic fever and a valve replacement General Gout Father Heart Disease Mother due to Brain Aneurysm () Siblings 1 Siblings 1 RF childhood hx-valve replacement Social History Type Date Description Comments Sex Unknown Marital Status Lives With Occupation Currently Working [employer] Tobacco Use Start: Unknown End: Former Cigarette Smoker Unknown Tobacco Use Start: Unknown Chews tobacco ETOH Use Currently consumes Daily 2 beer & alcohol scotch Tobacco Use Start: Unknown End: Patient is a former Unknown smoker Recreational Drug Use Denies Drug Use Tobacco Use Start: Unknown Chews tobbaco Smoking Status Reviewed: 08/27/18 Chews tobbaco Exercise Type/Frequency Does not exercise Allergies, Adverse Reactions, Alerts Date Description Reaction Status Severity Comments 07/25/2015 Penicillin Active 07/25/2015 Codeine Active 09/13/2017 Nitro-Dur Urticaria Active Medications Medication Date Status Form Strength Qnty SIG Indications Ordering Provider Oxygen 05/06/ Active Misc 1units D/c o2 Monica 2017 MD Marc Cpap 04/04/ Active Device 1units for use Kayla 2017 while Francisco, sleeping M.D. Prednisone 09/17/ Active Tablets 5mg 60tabs one tablet R05 Monica 2017 by mouth heath Tran MD morning Torsemide 02/11/ Active Tablets 20mg 30tabs 1 tab by Atif [place] mouth F. every day( Igor, taken in M.D. the am) Tylenol 00/00/ Active 325mg 2 every 8 Unknown 0000 hours prn Spironolactone / Active Tablets 50mg 90tabs 1 tablet Kayla 0000 by mouth Francisco, every day M.D. Atenolol 00/ Active Tablets 25mg 1 by mouth Unknown 0000 every day Allopurinol / Active Tablets 100mg 2 tabs by Unknown 0000 mouth every day Isosorbide 08/06/ Hx Tablets ER 30mg 90tabs 1 by mouth L23.1 Kayla Mononitrate ER 2017 - 24HR every day Boyle, 11/11/ at [facility] M.D. 2017 prn SOBt Metoprolol 07/18/ Hx Tablets ER 25mg 90tabs 1 by mouth Kayla Succinate ER 2017 - 24HR every day Boyle, 04/18/ M.D. 2017 Oxygen 07/11/ Hx Misc 2L 1units 2 L nasal Kayla 2016 - canula Boyle, 05/06/ with M.D. 2017 sleep. Potassium 02/15/ Hx Tablets ER 10Meq 30tabs 1 by mouth I50.32 Kayla Chloride Yumiko ER 2016 - every day Boyle, 11/11/ w/ M.D. 2017 torsemide Nitroglycerin 01/30/ Hx Patches 0.4mg/HR 30unit 1 patch to L23.1 Kayla 2016 - 24HR s chest wall Boyle, 08/06/ in the .D. 2016 evening, remove after 12 hours. Metoprolol 12/31/ Hx Tablets ER 25mg 30tabs 1 by mouth Wyatt Succinate ER 2017 - 24HR daily [place], M.D. 2017 Aspir-81 / Hx Tablets DR 81mg 1 by mouth Unknown 0000 - every day 2018 Fish Oil / Hx Capsules 1000mg 1 by mouth Unknown 0000 - every day 2016 Vitamin D3 High / Hx Capsules 1000Unit 4 by mouth Unknown Potency 0000 - every day 2016 Allopurinol / Hx Tablets 100mg 2 by mouth Unknown 0000 - every day 2016 Aleve / Hx Tablets 220mg as needed Unknown 0000 - 2016 Lasix / Hx Tablets 20mg 60tabs 1 by mouth Kayla 0000 - day Boyle, Saturday - M.D. 2016 2 tabs on Saturday Metoprolol / Hx Tablets ER 50mg 1/2 tablet Kayla Succinate ER 0000 - 24HR by mouth Boyle, 07/18/ daily in M.D. 2017 the morning Immunizations Description No Information Available Vital Signs Date Vital Result Comment 08/27/2018 12:05pm Height 70 inches 5'10" Weight 208.12 lb Heart Rate 92 /min BP Systolic Sitting 92 mmHg large adult cuff left arm BP Diastolic Sitting 68 mmHg large adult cuff left arm Respiratory Rate 24 /min O2 % BldC Oximetry 88 % at rest on room air BMI (Body Mass Index) 29.9 kg/m2 05/09/2018 10:36am Height 70 inches 5'10" Weight 198.00 lb w/ shoes Heart Rate 94 /min BP Systolic Sitting 112 mmHg lue lg cuff BP Diastolic Sitting 62 mmHg lue lg cuff BP Systolic Standing 98 mmHg lue lg cuff BP Diastolic Standing 68 mmHg lue lg cuff Respiratory Rate 18 /min BMI (Body Mass Index) 28.4 kg/m2 Ejection Fraction 60-65% echo 12/13/17 04/21/2018 7:42am Height 70 inches 5'10" Weight 205.12 lb Heart Rate 80 /min BP Systolic Sitting 110 mmHg Lue large cuff BP Diastolic Sitting 74 mmHg Lue large cuff Respiratory Rate 20 /min O2 % BldC Oximetry 97 % BMI (Body Mass Index) 29.4 kg/m2 04/18/2018 7:55am Height 70 inches 5'10" Weight 205.00 lb w/ shoes Heart Rate 86 /min BP Systolic Sitting 98 mmHg lue lg cuff BP Diastolic Sitting 62 mmHg lue lg cuff BP Systolic Standing 102 mmHg lue lg cuff BP Diastolic Standing 62 mmHg lue lg cuff BMI (Body Mass Index) 29.4 kg/m2 Ejection Fraction 60-65% echo 12/13/17 04/04/2018 10:34am Height 70 inches 5'10" Weight 194.00 lb Heart Rate 100 /min BP Systolic Sitting 102 mmHg lue reg cuff BP Diastolic Sitting 62 mmHg lue reg cuff BP Systolic Standing 98 mmHg BP Diastolic Standing 60 mmHg Respiratory Rate 16 /min BMI (Body Mass Index) 27.8 kg/m2 Ejection Fraction 60-65% 12/13/2017 echo 02/27/2018 8:59am Height 70 inches 5'10" Weight 192.25 lb Heart Rate 92 /min BP Systolic Sitting 104 mmHg Lue reg cuff BP Diastolic Sitting 76 mmHg Lue reg cuff Respiratory Rate 16 /min O2 % BldC Oximetry 96 % On Ra BMI (Body Mass Index) 27.6 kg/m2 01/17/2018 10:52am Height 70 inches 5'10" Weight 199.38 lb Heart Rate 87 /min BP Systolic 106 mmHg BP Diastolic 74 mmHg Pain Level 1 O2 % BldC Oximetry 97 % BMI (Body Mass Index) 28.6 kg/m2 01/17/2018 9:06am Height 70 inches 5'10" Weight 200.38 lb with shoes Heart Rate 80 /min BP Systolic Sitting 94 mmHg Rue reg cuff BP Diastolic Sitting 66 mmHg Rue reg cuff BP Systolic Standing 100 mmHg Rue reg cuff BP Diastolic Standing 72 mmHg Rue reg cuff Respiratory Rate 16 /min BMI (Body Mass Index) 28.7 kg/m2 Ejection Fraction 60-65% date 12/13/17 ECHO 12/02/2017 3:31pm Height 70 inches 5'10" Weight 198.00 lb with shoes Heart Rate 90 /min BP Systolic Sitting 94 mmHg Lue reg cuff BP Diastolic Sitting 70 mmHg Lue reg cuff BP Systolic Standing 104 mmHg Lue reg cuff BP Diastolic Standing 78 mmHg Lue reg cuff Respiratory Rate 24 /min O2 % BldC Oximetry 97 % at room air BMI (Body Mass Index) 28.4 kg/m2 11/22/2017 8:39am Height 70 inches 5'10" Weight 195.00 lb Heart Rate 88 /min BP Systolic Sitting 110 mmHg BP Diastolic Sitting 70 mmHg Pain Level 0 BMI (Body Mass Index) 28.0 kg/m2 11/11/2017 7:18am Height 70 inches 5'10" Weight 200.12 lb Heart Rate 78 /min BP Systolic Sitting 124 mmHg Rue large cuff BP Diastolic Sitting 80 mmHg Rue large cuff Respiratory Rate 16 /min O2 % BldC Oximetry 98 % BMI (Body Mass Index) 28.7 kg/m2 10/04/2017 8:27am Height 70 inches 5'10" Weight 195.00 lb Heart Rate 74 /min BP Systolic Sitting 120 mmHg Ra, reg BP Diastolic Sitting 70 mmHg Ra, reg O2 % BldC Oximetry 96 % on room air BMI (Body Mass Index) 28.0 kg/m2 Ejection Fraction 60%-65% 08/06/17 echo 09/30/2017 3:55pm Height 70 inches 5'10" Weight 194.00 lb Heart Rate 72 /min BP Systolic 110 mmHg BP Diastolic 80 mmHg O2 % BldC Oximetry 96 % BMI (Body Mass Index) 27.8 kg/m2 09/17/2017 9:00am Height 70 inches 5'10" Weight 196.00 lb Heart Rate 84 /min BP Systolic Sitting 102 mmHg BP Diastolic Sitting 66 mmHg Respiratory Rate 14 /min O2 % BldC Oximetry 95 % BMI (Body Mass Index) 28.1 kg/m2 Neck Circumference in inches 16.5 09/13/2017 9:11am Height 70 inches 5'10" Weight 200.00 lb w/shoes Heart Rate 98 /min BP Systolic Sitting 112 mmHg lue reg cuff BP Diastolic Sitting 84 mmHg lue reg cuff Respiratory Rate 18 /min BMI (Body Mass Index) 28.7 kg/m2 Ejection Fraction 60-65% echo 08/06/17 08/22/2017 8:09am Height 70 inches 5'10" Weight 202.00 lb No shoes Heart Rate 68 /min BP Systolic Sitting 116 mmHg Rue reg cuff BP Diastolic Sitting 82 mmHg Rue reg cuff BP Systolic Standing 116 mmHg Rue reg cuff BP Diastolic Standing 84 mmHg Rue reg cuff Respiratory Rate 16 /min BMI (Body Mass Index) 29.0 kg/m2 Ejection Fraction 60-65% 08/06/2017-echo 08/14/2017 10:05am Height 70 inches 5'10" Weight 195.00 lb Heart Rate 62 /min BP Systolic 124 mmHg BP Diastolic 88 mmHg Respiratory Rate 16 /min Body Temperature 97.6 F BMI (Body Mass Index) 28.0 kg/m2 08/13/2017 11:32am Height 70 inches 5'10" Weight 201.00 lb Heart Rate 96 /min BP Systolic Sitting 114 mmHg Lue reg cuff BP Diastolic Sitting 88 mmHg Lue reg cuff BP Systolic Standing 108 mmHg Lue BP Diastolic Standing 86 mmHg Lue Respiratory Rate 16 /min BMI (Body Mass Index) 28.8 kg/m2 Ejection Fraction 60-65% 08/06/17 08/06/2017 2:40pm Height 70 inches 5'10" Weight 202.00 lb No shoes Heart Rate 80 /min BP Systolic Sitting 130 mmHg Rue reg cuff BP Diastolic Sitting 88 mmHg Rue reg cuff BP Systolic Standing 124 mmHg Rue reg cuff BP Diastolic Standing 84 mmHg Rue reg cuff Respiratory Rate 16 /min BMI (Body Mass Index) 29.0 kg/m2 Ejection Fraction 55-60% 12/26/2016-echo 07/18/2017 9:24am Height 70 inches 5'10" Weight 205.00 lb without shoes Heart Rate 86 /min BP Systolic Sitting 100 mmHg Lue reg cuff BP Diastolic Sitting 70 mmHg Lue reg cuff Respiratory Rate 17 /min BMI (Body Mass Index) 29.4 kg/m2 Ejection Fraction 55-60% date 12/26/2016 ECHO 07/03/2017 10:23am Height 70 inches 5'10" Weight 203.25 lb w/o shoes, weight yesterday w/o clothes 200.2 Heart Rate 80 /min BP Systolic Sitting 110 mmHg rue reg cuff BP Diastolic Sitting 76 mmHg rue reg cuff BP Systolic Standing 102 mmHg rue reg cuff BP Diastolic Standing 78 mmHg rue reg cuff Respiratory Rate 22 /min shallow BMI (Body Mass Index) 29.2 kg/m2 Ejection Fraction 55-60% echo 12/26/16 06/27/2017 9:26am Height 70 inches 5'10" Weight 200.00 lb No shoes Heart Rate 86 /min BP Systolic Sitting 110 mmHg Lue reg cuff BP Diastolic Sitting 78 mmHg Lue reg cuff BP Systolic Standing 106 mmHg Lue reg cuff BP Diastolic Standing 72 mmHg Lue reg cuff Respiratory Rate 16 /min BMI (Body Mass Index) 28.7 kg/m2 Ejection Fraction 55-60% 12/26/2016-echo 06/14/2017 1:33pm Height 70 inches 5'10" Weight 199.00 lb with shoes Heart Rate 82 /min BP Systolic Sitting 110 mmHg Rue Reg Cuff BP Diastolic Sitting 72 mmHg Rue Reg Cuff BP Systolic Standing 100 mmHg RUe reg cuff BP Diastolic Standing 74 mmHg RUe reg cuff Respiratory Rate 17 /min BMI (Body Mass Index) 28.6 kg/m2 Ejection Fraction 55-60% date 12/26/16 ECHO 03/18/2017 8:46am Height 70 inches 5'10" Weight 209.31 lb with shoes Heart Rate 96 /min BP Systolic Sitting 108 mmHg Lue reg cuff BP Diastolic Sitting 80 mmHg Lue reg cuff Respiratory Rate 17 /min BMI (Body Mass Index) 30.0 kg/m2 Ejection Fraction 55-60% date 12/26/16 ECHO 02/15/2017 8:02am Height 70 inches 5'10" Weight 219.00 lb with shoes Heart Rate 78 /min BP Systolic Sitting 118 mmHg Lue reg cuff BP Diastolic Sitting 84 mmHg Lue reg cuff BP Systolic Standing 118 mmHg Lue reg cuff BP Diastolic Standing 88 mmHg Lue reg cuff Respiratory Rate 17 /min BMI (Body Mass Index) 31.4 kg/m2 Ejection Fraction 55-60% 12/26/2016-echo 01/15/2017 10:42am Height 70 inches 5'10" Weight 211.00 lb without shoes Heart Rate 94 /min reg BP Systolic Sitting 118 mmHg Rue reg cuff BP Diastolic Sitting 90 mmHg Rue reg cuff BP Systolic Standing 122 mmHg Rue reg cuff BP Diastolic Standing 90 mmHg Rue reg cuff Respiratory Rate 17 /min BMI (Body Mass Index) 30.3 kg/m2 Ejection Fraction 55-60% date 12/26/2016 ECHO 01/10/2017 3:16pm Height 72 inches 6'0" Weight 213.50 lb with shoes Heart Rate 74 /min BP Systolic Sitting 136 mmHg LA lrg cuff BP Diastolic Sitting 82 mmHg LA lrg cuff BMI (Body Mass Index) 29.0 kg/m2 Ejection Fraction 55% - 60% echo 12/26/16 10/31/2015 10:18am Height 72 inches 6'0" Weight 217.00 lb Heart Rate 70 /min BP Systolic 130 mmHg BP Diastolic 90 mmHg Pain Level 2 BMI (Body Mass Index) 29.4 kg/m2 10/10/2015 9:10am Height 72 inches 6'0" Weight 217.00 lb Heart Rate 82 /min BP Systolic Sitting 124 mmHg BP Diastolic Sitting 88 mmHg Pain Level 2 BMI (Body Mass Index) 29.4 kg/m2 09/30/2015 9:15am Heart Rate 75 /min BP Systolic Sitting 141 mmHg BP Diastolic Sitting 84 mmHg Pain Level 4 incision site 09/26/2015 10:16am Height 72 inches 6'0" Weight 217.00 lb Heart Rate 82 /min BP Systolic Sitting 130 mmHg BP Diastolic Sitting 90 mmHg Pain Level 8 BMI (Body Mass Index) 29.4 kg/m2 08/17/2015 2:31pm Height 72 inches 6'0" Weight 217.00 lb Heart Rate 86 /min BP Systolic Sitting 130 mmHg BP Diastolic Sitting 90 mmHg Pain Level 6 BMI (Body Mass Index) 29.4 kg/m2 07/25/2015 11:16am Height 72 inches 6'0" Weight 217.00 lb Heart Rate 58 /min BP Systolic Sitting 126 mmHg BP Diastolic Sitting 70 mmHg Pain Level 1 back BMI (Body Mass Index) 29.4 kg/m2 Results Test Date Facility Test Result H/L Range Note Order 08/27/2018 [facility] In-House 6 Minute Walk <pending> CBC Auto Diff 07/21/2018 [facility] White Blood 6.9 10^3/uL N 3.5-10.[address] [place] [address] [phone] Red Blood Count 4.39 10^6/uL N 4.00-5.40 Hemoglobin 14.0 g/dL N 14.0-18.0 Hematocrit 43 % N 42-52 Mean Corpuscular Volume 98 fL High 80-94 Mean Corpuscular Hemoglobin 32 pg High 27-31 Mean Corpuscular HGB Conc 33 g/dL N 31-36 Red Cell Distribution Width 16 % High 10.5-15 Platelet Count 154 10^3/uL N 150-450 Mean Platelet Volume 10.3 fL N 7.4-10.4 Abs Neutrophils 5.6 10^3/uL N 1.5-7.7 Abs Lymphocytes 0.6 10^3/uL Low 1.0-4.8 Abs Monocytes 0.7 10^3/uL N 0-0.8 Abs Eosinophils 0 10^3/uL N 0-0.6 Abs Basophils 0 10^3/uL N 0-0.2 Abs Nucleated RBC 0 10^3/uL Granulocyte % 80.9 % Lymphocyte % 8.3 % Monocyte % 10.0 % Eosinophil % 0.5 % Basophil % 0.3 % Nucleated Red Blood Cells % 0.1 Laboratory test 07/21/2018 [facility] Ferritin 34.1 ng/mL N 24 -336 [address] [place] [address] [phone] CBC Auto Diff 05/28/2018 [facility] White Blood 5.5 10^3/uL N 3.5-10.[address] [place] [address] [phone] Red Blood Count 3.69 10^6/uL Low 4.00-5.40 Hemoglobin 12.8 g/dL Low 14.0-18.0 Hematocrit 39 % Low 42-52 Mean Corpuscular Volume 105 fL High 80-94 Mean Corpuscular Hemoglobin 35 pg High 27-31 Mean Corpuscular HGB Conc 33 g/dL N 31-36 Red Cell Distribution Width 15 % N 10.5-15 Platelet Count 216 10^3/uL N 150-450 Mean Platelet Volume 8.9 um3 N 7.4-10.4 Abs Neutrophils 4.2 10^3/uL N 1.5-7.7 Abs Lymphocytes 0.6 10^3/uL Low 1.0-4.8 Abs Monocytes 0.6 10^3/uL N 0-0.8 Abs Eosinophils 0.1 10^3/uL N 0-0.6 Abs Basophils 0 10^3/uL N 0-0.2 Abs Nucleated RBC 0 10^3/uL Granulocyte % 76.0 % N 38-83 Lymphocyte % 11.0 % Low 25-47 Monocyte % 11.2 % High 0-7 Eosinophil % 1.0 % N 0-6 Basophil % 0.8 % N 0-2 Nucleated Red Blood Cells % 0 Laboratory test 05/28/2018 [facility] Ferritin 56.5 ng/mL N 24 -336 [address] [place] [address] [phone] CBC Auto Diff 05/14/2018 [facility] White Blood 5.9 10^3/uL N 3.5-10.[address] [place] [address] [phone] Red Blood Count 3.60 10^6/uL Low 4.00-5.40 Hemoglobin 12.9 g/dL Low 14.0-18.0 Hematocrit 38 % Low 42-52 Mean Corpuscular Volume 107 fL High 80-94 3 Mean Corpuscular Hemoglobin 36 pg High 27-31 Mean Corpuscular HGB Conc 34 g/dL N 31-36 Red Cell Distribution Width 15 % N 10.5-15 Platelet Count 218 10^3/uL N 150-450 Mean Platelet Volume 9.3 um3 N 7.4-10.4 Abs Neutrophils 4.8 10^3/uL N 1.5-7.7 Abs Lymphocytes 0.4 10^3/uL Low 1.0-4.8 Abs Monocytes 0.6 10^3/uL N 0-0.8 Abs Eosinophils 0 10^3/uL N 0-0.6 Abs Basophils 0 10^3/uL N 0-0.2 Abs Nucleated RBC 0 10^3/uL Granulocyte % 81.6 % N 38-83 Lymphocyte % 7.0 % Low 25-47 Monocyte % 10.6 % High 0-7 Eosinophil % 0.4 % N 0-6 Basophil % 0.4 % N 0-2 Nucleated Red Blood Cells % 0.2 Laboratory 05/14/2018 [facility] Ferritin 85.2 N 24-336 [address] ng/[place] [address] [phone] Laboratory 05/09/2018 [facility] Therapeutic (SEE 5, 6 test finding [address] Phlebotomy NOTE) [place] [address] [phone] Laboratory 03/14/2018 [facility] B-Type 326 pg/mL High [address] [place] [address] Peptide BNP [phone] Basic 03/14/2018 [facility] Sodium 136 N 135-[address] mmol/[place] [address] [phone] Potassium 4.2 mmol/L N 3.5-5.0 Chloride 98 mmol/L Low 101-111 Co2 Carbon Dioxide 31 mmol/L N 22-32 Anion Gap 7 mmol/L N 2-11 Glucose 90 mg/dL N 70-100 Blood Urea Nitrogen 29 mg/dL High 6-24 Creatinine 1.14 mg/dL N 0.67-1.17 BUN/Creatinine Ratio 25.4 High 8-20 Calcium 9.7 mg/dL N 8.6-10.3 Egfr Non- 63.0 >60 Egfr 76.2 >60 8 Iron & Iron Binding 03/14/2018 [facility] Iron 150 g/dL N 50 -[address] [place] [address] [phone] Unsaturated Iron Binding 134 g/dL Total Iron Binding Capacity 284 g/dL N 250-450 Transferrin 203 mg/dL N 203-362 % Iron Saturation 53 % N 15-55 CBC Auto Diff 02/04/2018 [facility] White Blood 6.3 10^3/uL N 3.5-10.[address] [place] [address] [phone] Red Blood Count 4.65 10^6/uL N 4.00-5.40 Hemoglobin 16.2 g/dL N 14.0-18.0 Hematocrit 48 % N 42-52 Mean Corpuscular Volume 102 fL High 80-94 Mean Corpuscular Hemoglobin 35 pg High 27-31 Mean Corpuscular HGB Conc 34 g/dL N 31-36 Red Cell Distribution Width 15 % N 10.5-15 Platelet Count 165 10^3/uL N 150-450 Mean Platelet Volume 9.3 um3 N 7.4-10.4 Abs Neutrophils 5.3 10^3/uL N 1.5-7.7 Abs Lymphocytes 0.5 10^3/uL Low 1.0-4.8 Abs Monocytes 0.3 10^3/uL N 0-0.8 Abs Eosinophils 0.1 10^3/uL N 0-0.6 Abs Basophils 0 10^3/uL N 0-0.2 Abs Nucleated RBC 0 10^3/uL Granulocyte % 84.7 % High 38-83 Lymphocyte % 8.4 % Low 25-47 Monocyte % 5.4 % N 0-7 Eosinophil % 0.9 % N 0-6 Basophil % 0.6 % N 0-2 Nucleated Red Blood Cells % 0 Laboratory test 02/04/2018 [facility] Erythrocyte Sed 8 mm/Hr N 0-[address] [place] [address] [phone] Liver Function 02/04/2018 [facility] Total Protein 6.8 g/dL N 6.4-8.[address] [place] [address] [phone] Albumin 4.1 g/dL N 3.2-5.2 Globulin 2.7 g/dL N 2-4 Albumin/Globulin Ratio 1.5 N 1-3 Total Bilirubin 1.10 mg/dL High 0.2-1.0 Direct Bilirubin 0.20 mg/dL High 0.03-0.18 Indirect Bilirubin 0.9 mg/dL N 0.3-1.0 Alkaline Phosphatase 137 U/L High 34-104 Alt 30 U/L N 7-52 Ast 31 U/L N 13-39 Laboratory test 02/04/2018 [facility] C Reactive 4.57 mg/L N < 8.[address] [place] [address] [phone] Iron & Iron 02/04/2018 [facility] Iron 158 g/dL N 50-212 Binding Capacity [address] [place] [address] [phone] Unsaturated Iron Binding 130 g/dL Total Iron Binding Capacity 288 g/dL N 250-450 Transferrin 206 mg/dL N 203-362 % Iron Saturation 55 % N 15-55 Laboratory test 02/04/2018 [facility] Ferritin 435.3 High 24- [address] ng/mL [place], [place] [id number] [phone] Hemochromatosis 11/22/2017 [facility] Hemochromatosis See [address] [place] [address] [phone] Hemochromatosis Specimen WB Whole Blood Hemochromatosis Method See Comment 10 Hemochromatosis Results See Comment 11 Hemochromatosis Interpretation See Comment 12 Hemochromatosis Reviewed By See Comment 13 Hypersensitivity 11/22/2017 [facility] Aspergillus 14.2 <= 102 [address] fumigatus IgG mg/[place] [address] Ab [phone] Micropolyspora faeni IgG Ab <2.0 mg/L <=13.2 15 Thermoactinomyces vulgaris IgG 3.1 mg/L <=23.9 16 Laboratory test 11/22/2017 [facility] Erythrocyte Sed 17 mm/Hr N 0-[address] [place] [address] [phone] C Reactive Protein 6.03 mg/L High < 5.00 17 Cyclic Citrullinated Pep Igg TNP () 18 Hepatitis 11/22/2017 [facility] Hepatitis C Nonreactive Nonreactive Acute Panel [address] [place] [address] [phone] Hepatitis A AB Igm Nonreactive Nonreactive Hepatitis B Core AB Igm Nonreactive Nonreactive Hepatitis B Surface Ag Nonreactive Nonreactive Laboratory test 11/22/2017 [facility] Angiotensin 43 U/L 8 - [address] [place] [address] Enzyme [phone] Connective 11/22/2017 [facility] Anti-Nuclear 1.2 U High [address] [place] [address] [phone] Cyclic Citrullinated Peptide <15.6 U 21 Interpretation See Comment 22 Hla B27 11/22/2017 [facility] Hla B27 Negative 23 [address] [place] [address] [phone] Hla B27 Interp See Comment 24 Laboratory test 11/22/2017 [facility] Vitamin D, 44 pg/mL 18- 64 25 finding [address] 1,25 [place] [address] [phone] Basic Metabolic 11/12/2017 [facility] Sodium 137 mmol/L Low 139-145 Panel [address] [place] [address] [phone] Potassium 4.2 mmol/L N 3.5-5.0 Chloride 99 mmol/L Low 101-111 Co2 Carbon Dioxide 31 mmol/L N 22-32 Anion Gap 7 mmol/L N 2-11 Glucose 115 mg/dL High 70-100 Blood Urea Nitrogen 34 mg/dL High 6-24 Creatinine 0.95 mg/dL N 0.67-1.17 BUN/Creatinine Ratio 35.8 High 8-20 Calcium 9.6 mg/dL N 8.6-10.3 Egfr Non- 77.7 >60 Egfr 99.9 >60 26 Laboratory test 11/12/2017 [facility] Magnesium 2.0 mg/dL N 1.9-2.7 27 finding [address] [place] [address] [phone] B-Type Natriuretic Peptide BNP 224 pg/mL High 28 CBC No Diff 11/12/2017 [facility] White Blood 6.8 10^3/uL N 3.5-10.8 [address] [facility] [place] [address] [phone] Red Blood Count 4.72 10^6/uL N 4.0-5.4 Hemoglobin 15.8 g/dL N 14.0-18.0 Hematocrit 47 % N 42-52 Mean Corpuscular Volume 99 fL High 80-94 Mean Corpuscular Hemoglobin 34 pg High 27-31 Mean Corpuscular HGB Conc 34 g/dL N 31-36 Red Cell Distribution Width 16 % High 10.5-15 Platelet Count 156 10^3/uL N 150-450 Mean Platelet Volume 9.4 um3 N 7.4-10.4 Iron & Iron Binding 11/12/2017 [facility] Iron 138 g/dL N 50 -212 Capacity [address] [place], [place] [id number] [phone] Unsaturated Iron Binding 156 g/dL Total Iron Binding Capacity 294 g/dL N 250-450 Transferrin 210 mg/dL N 203-362 % Iron Saturation 47 % N 15-55 Laboratory 11/12/2017 [facility] Ferritin 470.5 High 24-[address] ng/[place] [address] [phone] Laboratory 10/04/2017 [facility] Transferrin 187 mg/dL Abnormal 200 - 360 29 test finding [address] [place] [address] [phone] Iron & Iron 10/04/2017 [facility] Iron 115 N 50-[address] g/[place] [address] [phone] Unsaturated Iron Binding 155 g/dL Total Iron Binding Capacity 270 g/dL N 250-450 % Iron Saturation 43 % N 15-55 Laboratory test 10/04/2017 [facility] Cyclic <15.[address] [place] [address] IgG [phone] [place]/Lambda 09/30/2017 [facility] Urine [place] Total <0.9000 <0.[address] Light Chain mg/dL 00 [place] [address] [phone] Urine Lambda Total Light Chain <0.7000 mg/dL <0.7000 32 Urine [place]/Lambda Light Chain See Comment 33 Laboratory test 09/20/2017 [facility] Body Fluid None Seen None Seen [address] C[place], [place] [id number] [phone] Body Fluid C&S 09/20/2017 [facility] Body Fluid SEE RESULT [address] [place] [address] Stain [phone] Lactate 09/20/2017 [facility] Lactate 161 U/L 36 Dehydrogenase,BF [address] [place] [address] , BF [phone] Fluid Source PLEURAL 37 Body Fluid Glucose 09/20/2017 [facility] Glucose, BF 101 mg/dL [address] [place], [place] [id number] [phone] Fluid Source PLEURAL 39 Body Fluid Total 09/20/2017 [facility] Total Protein, BF 3.7 g/ dL [address] [place], [place] [id number] [phone] Fluid Source PLEURAL 41 Body Fluid Sodium 09/20/2017 [facility] Body Fluid Sodium 140 mmol/L [address] [place], [place] [id number] [phone] Fluid Type PLEURAL 43 Body Fluid Cell 09/20/2017 [facility] Body Fluid Pleural Fluid Count [address] [place] [address] [phone] Body Fluid Appearance Clear Body Fluid Color Yellow Body Fluid Volume 8 mL Body Fluid WBC 708 /mcL N 44 Body Fluid RBC 219 /mcL Body Fluid Neutrophils 3 % Body Fluid Lymph 38 % Body Fluid [place] 59 % Body Fluid Other Cells 17 Body Fluid Total Cells Counted 100 Body Fluid Comment (SEE NOTE) 45 Fluid Reviewed By MD (SEE NOTE) 46 Body Fluid Amylase 09/20/2017 [facility] BF Amylase 104 U/L [address] [place] [address] [phone] Fluid Source PLEURAL 48 Body Fluid 09/20/2017 [facility] Albumin Level 2100 mg/dL [address] [place] [address] [phone] Fluid Source PLEURAL Body Fluid Protein 09/20/2017 [facility] Body Fluid PLEURAL Electrophoresis [address] [place] [address] [phone] BF Total Protein 3.70 g/dL 50 BF Albumin 56 % 51 BF Swlbo-4-Lzrzghqg 5 % 52 BF Zxeim-4-Lihandlk 6 % 53 BF Beta Globulin 17 % 54 BF Gamma Globulin 16 % 55 Laboratory test 09/20/2017 [facility] Cytology Non-Representative Phlebotomy Services SEE RESULT [address] [place] [address] [phone] Anca Panel For 09/17/2017 [facility] Myeloperoxidase AB < 0.2 U 57, [address] [place] [address] [phone] Proteinase 3 AB < 0.2 U 59 Laboratory test finding 09/17/2017 [facility] Anti Ssa/Ro <0.2 U [address] [place] [address] [phone] Anti SSB LA <0.2 U 61 Centromere Auto Abs <0.2 U 62 Ferritin 655.4 ng/mL High 24-336 63 Rheumatoid Factor 15 IU/mL Abnormal <15 64 Scleroderma AB 09/17/2017 [facility] Scleroderma Ab <0.2 U 65 (SCL70) [address] [place] [address] [phone] Laboratory test 09/17/2017 [facility] TSH (Thyroid Stim 2.62 N 0.34- [address] Horm) mcIU/mL 5.60 [place] [address] [phone] Anti Nuclear Antibody 0.8 U 67 CBC Auto Diff 09/17/2017 [facility] White Blood 4.6 10^3/uL N 3.5-10.[address] [place] [address] [phone] Red Blood Count 4.54 10^6/uL N 4.0-5.4 Hemoglobin 14.9 g/dL N 14.0-18.0 Hematocrit 44 % N 42-52 Mean Corpuscular Volume 97 fL High 80-94 Mean Corpuscular Hemoglobin 33 pg High 27-31 Mean Corpuscular HGB Conc 34 g/dL N 31-36 Red Cell Distribution Width 15 % N 10.5-15 Platelet Count 137 10^3/uL Low 150-450 Mean Platelet Volume 10 um3 N 7.4-10.4 Abs Neutrophils 3.2 10^3/uL N 1.5-7.7 Abs Lymphocytes 0.7 10^3/uL Low 1.0-4.8 Abs Monocytes 0.6 10^3/uL N 0-0.8 Abs Eosinophils 0.1 10^3/uL N 0-0.6 Abs Basophils 0 10^3/uL N 0-0.2 Abs Nucleated RBC 0 10^3/uL Granulocyte % 69.4 % N 38-83 Lymphocyte % 14.3 % Low 25-47 Monocyte % 14.0 % High 1-9 Eosinophil % 1.9 % N 0-6 Basophil % 0.4 % N 0-2 Nucleated Red Blood Cells % 0.1 Letty Escudero 09/17/2017 [facility] Ebv Capsid Positive Negative Comprehensive [address] [place] [address] [phone] Ebv Capsid Ag IgM Ab Negative Negative Letty-Escudero Nuclear Antigen Positive Negative Letty-Escudero Virus Interp See Comment 68 Vitamin B12 And 09/17/2017 [facility] Vitamin B12 464 pg/mL N 180-914 69 Folate Serum [address] [place] [address] [phone] Folic Acid (Folate) 4.48 ng/mL >3.99 70 Inr/Protime 09/17/2017 [facility] Inr 0.96 N 0.77-1.[address] [place] [address] [phone] Laboratory test 09/13/2017 [facility] B-Type 171 High [address] Natriuretic pg/[place] [address] Peptide BNP [phone] Reactive Protein 21.55 mg/L High < 5.00 72 CBC Auto 09/13/2017 [facility] White Blood 3.0 10^3/uL Low 3.5 -10.[address] [place] [address] [phone] Red Blood Count 4.60 10^6/uL N 4.0-5.4 Hemoglobin 15.0 g/dL N 14.0-18.0 Hematocrit 45 % N 42-52 Mean Corpuscular Volume 98 fL High 80-94 Mean Corpuscular Hemoglobin 33 pg High 27-31 Mean Corpuscular HGB Conc 33 g/dL N 31-36 Red Cell Distribution Width 15 % N 10.5-15 Platelet Count 122 10^3/uL Low 150-450 Mean Platelet Volume 10 um3 N 7.4-10.4 Abs Neutrophils 1.8 10^3/uL N 1.5-7.7 Abs Lymphocytes 0.5 10^3/uL Low 1.0-4.8 Abs Monocytes 0.6 10^3/uL N 0-0.8 Abs Eosinophils 0.1 10^3/uL N 0-0.6 Abs Basophils 0 10^3/uL N 0-0.2 Abs Nucleated RBC 0 10^3/uL Granulocyte % 60.2 % N 38-83 Lymphocyte % 15.7 % Low 25-47 Monocyte % 20.1 % High 1-9 Eosinophil % 3.4 % N 0-6 Basophil % 0.6 % N 0-2 Nucleated Red Blood Cells % 0.1 Laboratory test 09/13/2017 [facility] Erythrocyte Sed 11 mm/Hr N 0-[address] [place] [address] [phone] Angiotensin Converting Enzyme 43 U/L 8 - 53 73 Anti Nuclear Antibody 0.7 U 74 Rheumatoid Factor <15 IU/mL <15 75 Laboratory test 08/14/2017 [facility] Surgical SEE RESULT [address] [place] [address] [phone] Protein 07/20/2017 [facility] Total 7.0 g/dL 6.3 - Electrophoresis [address] Protein(Pep) 7.9 [place] [address] [phone] Albumin 3.5 g/dL 3.4-4.7 Alpha-1 Globulin 0.3 g/dL 0.1-0.3 Alpha-2 Globulin 0.8 g/dL 0.6-1.0 Beta Globulin 1.0 g/dL 0.7-1.2 Gamma Globulin 1.3 g/dL 0.6-1.6 Albumin/Globulin Ratio 1.01 Impression See Comment 77 Urine Protein Elctrophoresis 07/20/2017 [facility] Albumin 61 % (RDM) [address] [place] [address] [phone] Alpha-1 Globulin 5 % Alpha-2 Globulin 10 % Beta Globulin 15 % Gamma Globulin 9 % Albumin/Globulin Ratio 1.57 % Impression See Comment 78 Total Protein(Pep) Urine 8 mg/dL 79 Laboratory test 07/02/2017 [facility] B-Type 255 pg/mL High [address] [place] [address] Peptide BNP [phone] Basic Metabolic 07/02/2017 [facility] Sodium 137 mmol/L N 133- [address] 45 [place] [address] [phone] Potassium 4.4 mmol/L N 3.5-5.0 Chloride 100 mmol/L Low 101-111 Co2 Carbon Dioxide 30 mmol/L N 22-32 Anion Gap 7 mmol/L N 2-11 Glucose 63 mg/dL Low 70-100 Blood Urea Nitrogen 22 mg/dL N 6-24 Creatinine 1.03 mg/dL N 0.67-1.17 BUN/Creatinine Ratio 21.4 High 8-20 Calcium 9.1 mg/dL N 8.6-10.3 Egfr Non- 70.8 >60 Egfr 91.0 >60 81 Laboratory test 07/02/2017 [facility] Magnesium 2.0 mg/dL N 1.9-2.[address] [place] [address] [phone] Inr/Protime 07/02/2017 [facility] Inr 1.01 N 0.89-1.[address] [place] [address] [phone] Laboratory test 07/02/2017 [facility] Partial 29.5 seconds N 26.0-36.[address] [place] [address] PTT [phone] CBC Auto Diff 07/02/2017 [facility] White Blood 5.9 10^3/uL N 3.5-10.[address] [place] [address] [phone] Red Blood Count 4.75 10^6/uL N 4.0-5.4 Hemoglobin 15.7 g/dL N 14.0-18.0 Hematocrit 47 % N 42-52 Mean Corpuscular Volume 98 fL High 80-94 Mean Corpuscular Hemoglobin 33 pg High 27-31 Mean Corpuscular HGB Conc 34 g/dL N 31-36 Red Cell Distribution Width 16 % High 10.5-15 Platelet Count 172 10^3/uL N 150-450 Mean Platelet Volume 10 um3 N 7.4-10.4 Abs Neutrophils 4.3 10^3/uL N 1.5-7.7 Abs Lymphocytes 0.7 10^3/uL Low 1.0-4.8 Abs Monocytes 0.8 10^3/uL N 0-0.8 Abs Eosinophils 0.1 10^3/uL N 0-0.6 Abs Basophils 0 10^3/uL N 0-0.2 Abs Nucleated RBC 0.01 10^3/uL Granulocyte % 71.7 % N 38-83 Lymphocyte % 12.1 % Low 25-47 Monocyte % 13.2 % High 1-9 Eosinophil % 2.5 % N 0-6 Basophil % 0.5 % N 0-2 Nucleated Red Blood Cells % 0.1 Pre Cath Panel 06/27/2017 [facility] Partial <pending> [address] [place] [address] PTT [phone] Basic Metabolic 03/04/2017 [facility] Sodium 137 mmol/L N 133- [address] [place] [address] [phone] Potassium 4.4 mmol/L N 3.5-5.0 Chloride 101 mmol/L N 101-111 Co2 Carbon Dioxide 28 mmol/L N 22-32 Anion Gap 8 mmol/L N 2-11 Glucose 110 mg/dL High 70-100 Blood Urea Nitrogen 18 mg/dL N 6-24 Creatinine 0.99 mg/dL N 0.67-1.17 BUN/Creatinine Ratio 18.2 N 8-20 Calcium 9.3 mg/dL N 8.6-10.3 Egfr Non- 74.3 N >60 Egfr 95.6 N >60 82 Laboratory test 03/04/2017 [facility] B-Type 391 pg/mL High [address] [place] [address] Peptide BNP [phone] Basic Metabolic 02/07/2017 [facility] Sodium 135 mmol/L N 133- [address] [place] [address] [phone] Potassium 4.2 mmol/L N 3.5-5.0 Chloride 100 mmol/L Low 101-111 Co2 Carbon Dioxide 28 mmol/L N 22-32 Anion Gap 7 mmol/L N 2-11 Glucose 92 mg/dL N 70-100 Blood Urea Nitrogen 17 mg/dL N 6-24 Creatinine 1.00 mg/dL N 0.67-1.17 BUN/Creatinine Ratio 17.0 N 8-20 Calcium 9.1 mg/dL N 8.6-10.3 Egfr Non- 73.5 N >60 Egfr 94.5 N >60 84 Laboratory test 02/07/2017 [facility] B-Type 238 pg/mL High [address] [place] [address] Peptide BNP [phone] Stone Analysis 01/18/2017 [facility] Kidney Stone Right N [address] [place] [address] [phone] Kidney Stone 1st Constituent See Comment N 86 Kidney Stone 2nd Constituent See Comment N 87 Kidney Stone 3rd Constituent See Comment N 88 Laboratory test 01/12/2017 [facility] B-Type 220 pg/mL High [address] [place] [address] Peptide BNP [phone] Basic Metabolic 01/12/2017 [facility] Sodium 136 mmol/L N 133- [address] [place] [address] [phone] Potassium 4.5 mmol/L N 3.5-5.0 Chloride 101 mmol/L N 101-111 Co2 Carbon Dioxide 28 mmol/L N 22-32 Anion Gap 7 mmol/L N 2-11 Glucose 89 mg/dL N 70-100 Blood Urea Nitrogen 18 mg/dL N 6-24 Creatinine 0.97 mg/dL N 0.67-1.17 BUN/Creatinine Ratio 18.6 N 8-20 Calcium 9.2 mg/dL N 8.6-10.3 Egfr Non- 76.1 N >60 Egfr 97.8 N >60 90 Laboratory test 01/12/2017 [facility] Magnesium 1.9 mg/dL N 1.9-2.[address] [place] [address] [phone] Laboratory test 09/30/2015 [facility] Body Fluid SEE RESULT 91, [address] [place] [address] [phone] Type & Screen 09/06/2015 [facility] Patient Blood O Positive N [address] [place] [address] [phone] Antibody Screen NEGATIVE N Laboratory test 09/06/2015 [facility] Inr/Protime 0.91 N 0.89- 1.11 finding [address] [email or web address] [address] [phone] Partial Thrombo Time PTT 30.3 seconds N 26.0-36.3 1 EVERY WEEK S/O 03/10/18-09/11/18 2 EVERY WEEK S/O 03/10/18-09/11/18 3 Consistent with Previous Results Reported on 05/07/18 4 EVERY WEEK S/O 03/10/18-09/11/18 5 [id number] 6 Approximately 450 ml of blood removed. 7 >100 to <200 pg/mL: likely compensated congestive heart failure (CHF) 200 to 400 pg/mL: likely moderate CHF >400 pg/mL: likely moderate to severe CHF 8 Because ethnic data is not always readily available, this report includes an eGFR for both -Americans and non- Americans. The National Kidney Disease Education Program (NKDEP) does not endorse the use of the MDRD equation for patients that are not between the ages of 18 and 70, are , have extremes of body size, muscle mass, or nutritional status, or are non- or non-. According to the National Kidney Foundation, irrespective of diagnosis, the stage of the disease is based on the level of kidney function: Stage Description GFR(mL/min/1.73 m(2)) 1 Kidney damage with normal or decreased GFR 90 2 Kidney damage with mild decrease in GFR 60-89 3 Moderate decrease in GFR 30-59 4 Severe decrease in GFR 15-29 5 Kidney failure <15 (or dialysis) 9 RESULT: COMPLEX (SEE RESULT AND INTERPRETATION) 10 A multiplex PCR based assay utilizing the [employer]ee[employer] Array platform was used to test for the following three mutations in the HFE gene; C282Y, H63D, and S65C. Because of the minimal effect on iron metabolism associated with the S65C mutation, it is only reported when it is found with the C282Y mutation (i.e. if the patient has the C282Y/S65C genotype). 11 C282Y: One copy of the C282Y mutation was identified. H63D: Not detected. S65C: Not detected. 12 This result indicates that this individual is at minimum a carrier of hereditary hemochromatosis (HH). The diagnosis of HH cannot be excluded because approximately 3 to 5% of patients with HH in the [place] population carry this allele. For other ethnicities, the frequency of HH patients with this allele may differ. This assay does not rule out the presence of other disease-causing mutations in the HFE gene or in other genes associated with hemochromatosis. Genotyping results should be interpreted in the context of clinical findings, family history, and other laboratory testing (e.g. serum transferrin-iron saturation and serum ferritin). A genetic consultation may be of benefit. ADDITIONAL INFORMATION An online research opportunity called [employer]), a project of [employer], is available for the recipient of this genetic test. This patient registry collects de-identified genetic and health information to advance the knowledge of genetic variants. [facility] is a collaborator of [employer]. This may not be applicable for all tests. Test results should be interpreted in the context of clinical findings, family history, and other laboratory data. Misinterpretation of results may occur if the information provided is inaccurate or incomplete. Rare polymorphisms exist that could lead to false-negative or false-positive results. If results obtained do not match the clinical findings, additional testing should be considered. Bone Marrow transplants from allogenic donors will interfere with testing. Call [facility] for instructions for testing patients who have received a bone marrow transplant. Multiple in-silico evaluation tools may have been used to assist in the interpretation of these results. Of note, the sensitivity and specificity of these tools for the determination of pathogenicity is currently unvalidated. This test was developed and its performance characteristics determined by [facility] in a manner consistent with CLIA requirements. This test has not been cleared or approved by the U.S. Food and Drug Administration. 13 RESULT: Aminah Mcintyre Jr., Ph.D. Test Performed by: [address] [address] 14 ADDITIONAL INFORMATION This test was developed and its performance characteristics determined by [facility] in a manner consistent with CLIA requirements. This test has not been cleared or approved by the U.S. Food and Drug Administration. 15 ADDITIONAL INFORMATION This test was developed using an analyte specific reagent. Its performance characteristics were determined by [facility] in a manner consistent with CLIA requirements. This test has not been cleared or approved by the U.S. Food and Drug Administration. 16 ADDITIONAL INFORMATION This test was developed using an analyte specific reagent. Its performance characteristics were determined by [facility] in a manner consistent with CLIA requirements. This test has not been cleared or approved by the U.S. Food and Drug Administration. Test Performed by: [facility] treadalong - [address] [address] 17 Acute inflammation: >10.00 18 Cancelled due to duplicate test on this order Test Performed by: [facility] - [address] [address] 19 Test Performed by: [facility] - [address] [address] 20 Interpretation: Weak Positive (1.1-2.9) REFERENCE VALUE <=1.0 (Negative) 21 REFERENCE VALUE <20.0 (Negative) 22 Tests for antibodies to dsDNA and EULOGIO antigens are not performed automatically unless the VINI result is > or= 3.0 U. Studies performed at [facility] indicate that positive VINI results <3.0 U are rarely accompanied by positive second order tests. Test Performed by: [facility] - [address] [address] 23 REFERENCE VALUE Not Applicable 24 RESULT: HLA-B27 antigen was not detected. ADDITIONAL INFORMATION Method: Flow Cytometry Performing Laboratory CLIA# [id number] Test Performed by: [facility] - [address] [address] 25 ADDITIONAL INFORMATION This test was developed and its performance characteristics determined by [facility] in a manner consistent with CLIA requirements. This test has not been cleared or approved by the U.S. Food and Drug Administration. Test Performed by: [facility] - [facility] [address] [place] [address] 26 Because ethnic data is not always readily available, this report includes an eGFR for both -Americans and non- Americans. The National Kidney Disease Education Program (NKDEP) does not endorse the use of the MDRD equation for patients that are not between the ages of 18 and 70, are , have extremes of body size, muscle mass, or nutritional status, or are non- or non-. According to the National Kidney Foundation, irrespective of diagnosis, the stage of the disease is based on the level of kidney function: Stage Description GFR(mL/min/1.73 m(2)) 1 Kidney damage with normal or decreased GFR 90 2 Kidney damage with mild decrease in GFR 60-89 3 Moderate decrease in GFR 30-59 4 Severe decrease in GFR 15-29 5 Kidney failure <15 (or dialysis) 27 Copy Result to: SUE MISHRA ([id number]) 28 >100 to <200 pg/mL: likely compensated congestive heart failure (CHF) 200 to 400 pg/mL: likely moderate CHF >400 pg/mL: likely moderate to severe CHF 29 Test Performed by: [facility] - [address] [address] 30 REFERENCE VALUE <20.0 (Negative) Test Performed by: [address] [address] 31 ADDITIONAL INFORMATION This test was developed and its performance characteristics determined by [facility] in a manner consistent with CLIA requirements. This test has not been cleared or approved by the U.S. Food and Drug Administration. 32 ADDITIONAL INFORMATION This test was developed and its performance characteristics determined by [facility] in a manner consistent with CLIA requirements. This test has not been cleared or approved by the U.S. Food and Drug Administration. 33 Ratio not calculated because the Total [place] and Total Lambda values are less than the reportable range. REFERENCE VALUE 0.7000-6.20 Test Performed by: [address] [address] 34 What is the body fluid source?: Pleural Fluid 35 SEE RESULT BELOW Name: KOMAL BUSH : [address]: Monica Tran MD Acct: [id number] Unit: [id number] AGE: 72 Location: OR Re09/20/17 SEX: M Status: SUMIT SDC SPEC: [id number] VERA: 09/20/17-[address] [facility] [address]: Monica Tran MD REQ: [id number] RECD: 09/20/179028 STATUS: CASA VENEGAS DR: Geraldo Gomes MD _ SOURCE: PLEURAL FL SPDESC: ORDERED: BF Cult/GS Procedure Result Reported Site Body Fluid Gram Stain Final 09/20/17- 1526 ML 4+ Neutrophils 4+ Nucleated Cells No Organisms Seen Preparation By Cytospin Smear Body Fluid Culture Final 09/24/17- 1026 ML No Growth Day 4 * ML - [facility] ([facility]) . END OF REPORT * ML=Testing performed at Main Lab DEPARTMENT OF PATHOLOGY, [address] [place] [address] Andrew Fleming M.D. Director ROM # [id number] 36 REFERENCE VALUE Not Applicable 37 Test Performed by: [facility] [address] [facility], [place] [address] 38 REFERENCE VALUE Not Applicable 39 Test Performed by: [facility] [address] [place] [address] 40 REFERENCE VALUE Not Applicable 41 Test Performed by: [facility] - [address] [address] 42 REFERENCE VALUE Not Applicable 43 Test Performed by: [facility] - [address] [address] 44 -- REFERENCE VALUE -- Synovial: <150/mcL Peritoneal: <500/mcL Pleural: <500/mcL Pericardial: <500/mcL 45 Differential performed on concentrated smear. 46 Reactive mesothelial elements, macrophages and lymphocytes predominate. No acute inflammation or malignancy seen. Reviewed by Dr. Fleming 47 REFERENCE VALUE Not Applicable 48 Test Performed by: [address] [address] 49 INTERPRETIVE INFORMATION: Albumin, Body Fluid A reference interval has not been established for body fluid specimens. Performed by [facility] [address] [place] [address] [email or web address], David [email or web address] MD - Lab. Director Test Performed by: [facility] [address] [place] [address] 50 REFERENCE VALUE Not Applicable ADDITIONAL INFORMATION This test has been modified from the fur trimming machine operator's instructions. Its performance characteristics were determined by [facility] in a manner consistent with CLIA requirements. This test has not been cleared or approved by the U.S. Food and Drug Administration. 51 REFERENCE VALUE Not Applicable 52 REFERENCE VALUE Not Applicable 53 REFERENCE VALUE Not Applicable 54 REFERENCE VALUE Not Applicable 55 REFERENCE VALUE Not Applicable ADDITIONAL INFORMATION This test was developed and its performance characteristics determined by [facility] in a manner consistent with CLIA requirements. This test has not been cleared or approved by the U.S. Food and Drug Administration. Test Performed by: [facility] - [address] [address] 56 SEE RESULT BELOW Name: KOMAL BUSH : [address]: Monica Tran MD Acct: [id number] Unit: [id number] AGE: 72 Location: OR Re09/20/17 SEX: M Status: REG SDC SPEC: [id number] VERA: 09/20/[address]: Monica Tran MD REQ: [id number] RECD: 09/20/17 STATUS: SOUT _ ORDERED: LEVEL 4, NG THIN LAYER, IMMUNO-FIRST, IMMUNO-ADDL/6 FINAL DIAGNOSIS Pleural effusion, left, thoracentesis: -- Negative for malignant cells. -- Inflammation. COMMENT: A cell block was prepared in the evaluation of this specimen. Smears and cell block reveal similar findings. Immunohistochemical stains, with appropriately reacting controls, were performed with the following results: Ari EP-4 negative CEA negative Tag 72 negative Vimentin positive WT-1 focally positive Calretinin focally positive TTF-1 negative The immunoprofile support the diagnosis. Dr. Fleming reviewed this case in intradepartmental consultation and agrees with the diagnosis. 1. PLEURAL - LEFT PLEURAL EFFUSION CONTINUED ON NEXT PAGE * ML=Testing performed at Main Lab DEPARTMENT OF PATHOLOGY, [address] [place] [address] Andrew Fleming M.D. Director [facility] # [id number] RUN DATE: 09/24/17 [facility] LAB LIVE PAGE 2 Patient: KOMAL BUSH [id number] (Continued) CLINICAL HISTORY (Continued) CLINICAL HISTORY Left pleural effusion. GROSS DESCRIPTION 1600 mls of clear singletary fluid. Signed (signature on file) Lisa Mcgarry MD 1126 END OF REPORT * ML=Testing performed at Main Lab DEPARTMENT OF PATHOLOGY, [address] [place] [address] Andrew Fleming M.D. Director [facility] # [id number] FASTING 58 REFERENCE VALUE <0.4 (Negative) 59 REFERENCE VALUE <0.4 (Negative) Test Performed by: [address] [address] 60 REFERENCE VALUE <1.0 (Negative) Test Performed by: [facility] [address] [place] [address] 61 REFERENCE VALUE <1.0 (Negative) Test Performed by: [address] [address] 62 REFERENCE VALUE <1.0 (Negative) Test Performed by: [address] [address] 63 FASTING 64 Test Performed by: [address] [address] 65 REFERENCE VALUE <1.0 (Negative) Test Performed by: [address] [address] 66 FASTING 67 REFERENCE VALUE <=1.0 (Negative) Test Performed by: [address] [address] 68 RESULT: Results suggest past infection. ADDITIONAL INFORMATION In most populations, at least 90% of the adult population will have been infected with EBV sometime in the past and therefore, will be positive for anti-VCA/IgG and anti- EBNA. Antibodies to EBNA develop 6-8 weeks after primary infection and remain present for life. Presence of VCA/ IgM antibodies indicates recent primary infection with EBV. Test Performed by: [facility] [address] [place] [address] 69 Normal Range 180 to 914 Indeterminate Range 145 to 180 Deficient Range <145 70 FASTING 71 >100 to <200 pg/mL: likely compensated congestive heart failure (CHF) 200 to 400 pg/mL: likely moderate CHF >400 pg/mL: likely moderate to severe CHF 72 Acute inflammation: >10.00 73 Test Performed by: [facility] [address] [place] [address] 74 REFERENCE VALUE <=1.0 (Negative) Test Performed by: [facility] [address] [place] [address] 75 Test Performed by: [address] [address] 76 SEE RESULT BELOW Name: KOMAL BUSH : [address]: Keyon Jackson MD Acct: [id number] Unit: [id number] AGE: 72 Location: [facility] Re08/14/17 SEX: M Status: REG REF SPEC: [id number] VERA: 08/14/17-[address]: Keyon Jackson MD REQ: [id number] RECD: 08/14/17 STATUS: SERGIO VENEGAS DR: Norma Singh MD _ ORDERED: LEVEL 4, SPEC ST NON-ORG COMMENTS: [id number] FINAL DIAGNOSIS Abdominal fat pad, biopsy: -- Benign skin and subcutaneous tissue with no evidence of amyloid deposition. COMMENT: A Congo red stain, with appropriately reacting controls, is negative for amyloid on light and polarization microscopy. PRE-OPERATIVE DIAGNOSIS Fat pad biopsy of abdomen to test for amyloidosis GROSS DESCRIPTION The specimen is received in formalin labeled, Abdominal Fat Pad Biopsy, and consists of a 0.9 x 0.7 x 0.3 cm aggregate of yellow irregular adipose tissue fragments. Received separately in the same container is a 0.3 cm coffey-white circular skin punch excised to a depth of 0.2 cm. Entirely submitted, one cassette. Signed (signature on file) Lisa Mcgarry MD 11/27 1201 END OF REPORT * ML=Testing performed at Main Lab DEPARTMENT OF PATHOLOGY, [address] [place] [address] Andrew Fleming M.D. Director [facility] # [id number] 77 RESULT: No apparent monoclonal protein on serum electrophoresis. Test Performed by: [address] [address] 78 RESULT: All fractions present, no apparent M-spike. 79 ADDITIONAL INFORMATION On 02/05/2017 the total protein assay method changed resulting in approximately a 15% increase in protein values. Test Performed by: [address] [address] 80 >100 to <200 pg/mL: likely compensated congestive heart failure (CHF) 200 to 400 pg/mL: likely moderate CHF >400 pg/mL: likely moderate to severe CHF 81 Because ethnic data is not always readily available, this report includes an eGFR for both -Americans and non- Americans. The National Kidney Disease Education Program (NKDEP) does not endorse the use of the MDRD equation for patients that are not between the ages of 18 and 70, are , have extremes of body size, muscle mass, or nutritional status, or are non- or non-. According to the National Kidney Foundation, irrespective of diagnosis, the stage of the disease is based on the level of kidney function: Stage Description GFR(mL/min/1.73 m(2)) 1 Kidney damage with normal or decreased GFR 90 2 Kidney damage with mild decrease in GFR 60-89 3 Moderate decrease in GFR 30-59 4 Severe decrease in GFR 15-29 5 Kidney failure <15 (or dialysis) 82 Because ethnic data is not always readily available, this report includes an eGFR for both -Americans and non- Americans. The National Kidney Disease Education Program (NKDEP) does not endorse the use of the MDRD equation for patients that are not between the ages of 18 and 70, are , have extremes of body size, muscle mass, or nutritional status, or are non- or non-. According to the National Kidney Foundation, irrespective of diagnosis, the stage of the disease is based on the level of kidney function: Stage Description GFR(mL/min/1.73 m(2)) 1 Kidney damage with normal or decreased GFR 90 2 Kidney damage with mild decrease in GFR 60-89 3 Moderate decrease in GFR 30-59 4 Severe decrease in GFR 15-29 5 Kidney failure <15 (or dialysis) 83 >100 to <200 pg/mL: likely compensated congestive heart failure (CHF) 200 to 400 pg/mL: likely moderate CHF >400 pg/mL: likely moderate to severe CHF 84 Because ethnic data is not always readily available, this report includes an eGFR for both -Americans and non- Americans. The National Kidney Disease Education Program (NKDEP) does not endorse the use of the MDRD equation for patients that are not between the ages of 18 and 70, are , have extremes of body size, muscle mass, or nutritional status, or are non- or non-. According to the National Kidney Foundation, irrespective of diagnosis, the stage of the disease is based on the level of kidney function: Stage Description GFR(mL/min/1.73 m(2)) 1 Kidney damage with normal or decreased GFR 90 2 Kidney damage with mild decrease in GFR 60-89 3 Moderate decrease in GFR 30-59 4 Severe decrease in GFR 15-29 5 Kidney failure <15 (or dialysis) 85 >100 to <200 pg/mL: likely compensated congestive heart failure (CHF) 200 to 400 pg/mL: likely moderate CHF >400 pg/mL: likely moderate to severe CHF 86 RESULT: 60% Calcium oxalate monohydrate 87 RESULT: 30% Calcium oxalate dihydrate 88 RESULT: 10% Calcium phosphate (apatite) ADDITIONAL INFORMATION This test was developed and its performance characteristics determined by [facility] in a manner consistent with CLIA requirements. This test has not been cleared or approved by the U.S. Food and Drug Administration. Test Performed by: [address] [address] 89 >100 to <200 pg/mL: likely compensated congestive heart failure (CHF) 200 to 400 pg/mL: likely moderate CHF >400 pg/mL: likely moderate to severe CHF 90 Because ethnic data is not always readily available, this report includes an eGFR for both -Americans and non- Americans. The National Kidney Disease Education Program (NKDEP) does not endorse the use of the MDRD equation for patients that are not between the ages of 18 and 70, are , have extremes of body size, muscle mass, or nutritional status, or are non- or non-. According to the National Kidney Foundation, irrespective of diagnosis, the stage of the disease is based on the level of kidney function: Stage Description GFR(mL/min/1.73 m(2)) 1 Kidney damage with normal or decreased GFR 90 2 Kidney damage with mild decrease in GFR 60-89 3 Moderate decrease in GFR 30-59 4 Severe decrease in GFR 15-29 5 Kidney failure <15 (or dialysis) 91 LUMBAR PUNCTURE FROM ICISION/PREVIOUS LUMBAR SURGERY SPECIMEN DESCRIPTION: INCISION DRAINAGE 92 SEE RESULT BELOW Name: KOMAL BUSH : [address]: Wyatt Mims MD Acct: [id number] Unit: [id number] AGE: 70 Location: [facility] Re09/30/15 SEX: M Status: REG REF SPEC: [id number] VERA: 09/30/15-[address] [facility] [address]: Wyatt Mims MD REQ: [id number] RECD: 09/30/15 STATUS: COMP _ SOURCE: MISC FLUID SPDESC:DRAINAGE ORDERED: BF Cult/GS COMMENTS: LUMBAR PUNCTURE FROM ICISION/PREVIOUS LUMBAR SURGERY SPECIMEN DESCRIPTION: INCISION DRAINAGE Procedure Result Reported Site Body Fluid Gram Stain Final 10/01/15- 0714 ML No Neutrophils Observed No Organisms Seen Preparation By Direct Smear Body Fluid Culture Final 10/04/15- 1002 ML No Growth Day 4 * ML - MAIN LAB ([facility]) . END OF REPORT * ML=Testing performed at Main Lab DEPARTMENT OF PATHOLOGY, [address] [place] [address] Andrew Fleming M.D. Director [facility] # [id number] Procedures Date Code Description Status 08/27/2018 74976 Pulmonary Stress Testing, Inc Measurement Heart Rate, Completed Oximetry 04/04/2018 80965 EKG Tracing & Interpretation Completed 02/14/2018 15421 Polysomnography Sleep Staging 4+ Parameters Completed 12/13/2017 58499 ECHO Transthoracic, Real-Time 2D With Doppler And Color Completed Flow 12/13/2017 90225 ECHO Transthoracic, Real-Time 2D With Doppler And Color Completed Flow 10/04/2017 29537 EKG Tracing & Interpretation Completed 09/20/2017 43946 Thoracentesis W/ Img Guidance Completed 08/14/2017 31140 Biopsy Skin Lesion Single Completed 08/06/2017 05669 ECHO Transthoracic, Real-Time 2D With Doppler And Color Completed Flow 08/06/2017 42234 ECHO Transthoracic, Real-Time 2D With Doppler And Color Completed Flow 08/06/2017 93345 EKG Tracing & Interpretation Completed 08/06/2017 08628 EKG Tracing & Interpretation Completed 07/09/2017 54749 Cardiac Cath,LT Hrtmincl Intraprocedural Ink LT Ventricul Completed Mammary 07/03/2017 80763 EKG Tracing & Interpretation Completed 01/10/2017 77921 EKG Tracing & Interpretation Completed 12/27/2016 81655 EKG, Interpretation Only Completed 12/26/2016 63035 ECHO Transthorasic Realtime 2D W Doppler & Color Flow Hosp Completed 07/23/2016 86730 Treadmill Interp/Report Only Completed 07/23/2016 45175 Stress Test Supervsn W/Out I/R Completed 07/23/2016 83139 EKG, Interpretation Only Completed 09/13/2015 79094 Stanley/Facet/Foraminotomy;Vertebral Segment; Lumbar Completed 09/13/2015 05617 Stereotactic Computer-Assisted, Spinal Completed 09/13/2015 19006 Non-Segmental Instrumentation Posterior 1 Interspace Completed 09/13/2015 86431 Arhtrodesis Post Lateral W/Lami-Lumbar Completed Encounters Type Date Location Provider Dx Diagnosis Office Visit 05/09/2018 [facility] Kayla Singh, 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 Hemochromatosis, unspecified J94.9 Pleural condition, unspecified R58 Hemorrhage, not elsewhere classified Office Visit 04/21/2018 8:00a Pulmonology And Monica G47.33 Obstructive sleep Sleep Services Of MD Marc apnea (adult) [facility] (pediatric) J90 Pleural effusion, not elsewhere classified Office Visit 04/18/2018 8:00a [facility] Kayla Singh, R42 Dizziness and Of [facility] AT [facility] M.DTobin giddiness I95.1 Orthostatic hypotension 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 I27.20 Pulmonary hypertension, unspecified Office Visit 04/04/2018 10:30a [facility] Kayla Singh R42 Dizziness and Of [facility] Kathy giddiness I95.1 Orthostatic hypotension 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, unspecified I50.32 Chronic diastolic (congestive) heart failure I27.20 Pulmonary hypertension, unspecified Office Visit 11/22/2017 9:00a Rheumatology Thang Ramirez J90 Pleural effusion, Services Of John Chavez not elsewhere classified 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, unspecified I31.9 Disease of pericardium, unspecified 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 R76.0 Raised antibody titer 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 Office Visit 11/11/2017 7:15a Pulmonology And Monica J90 Pleural effusion, Sleep Services Of MD Marc not elsewhere Administrative Representative classified R06.83 Snoring Office Visit 10/04/2017 8:20a Anitha Singh I50.32 Chronic diastolic Cardiology Of Kathy (congestive) heart [facility] AT [facility] failure J90 Pleural effusion, not elsewhere classified I27.20 Pulmonary hypertension, unspecified I27.81 Cor pulmonale (chronic) Office Visit 09/30/2017 7:00a [facility]ology And Monica J90 Pleural effusion, Sleep Services Of MD Marc not elsewhere Administrative Representative classified I27.20 Pulmonary hypertension, unspecified Office Visit 09/17/2017 9:30a [facility]ology And Monica J90 Pleural effusion, Sleep Services Of MD Marc not elsewhere Administrative Representative classified I27.20 Pulmonary hypertension, unspecified R05 Cough R09.02 Hypoxemia Office Visit 09/13/2017 9:20a [facility] Kayla Boyle, I50.32 Chronic diastolic Cardiology Of MTobinDTobin (congestive) heart Administrative Representative AT [facility] failure 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 J90 Pleural effusion, not elsewhere classified R50.9 Fever, unspecified R05 Cough I31.9 Disease of pericardium, unspecified I27.20 Pulmonary hypertension, unspecified I27.81 Cor pulmonale (chronic) Office Visit 08/22/2017 8:15a [facility] Samantha Coats, I50.32 Chronic diastolic Of Administrative Representative PA (congestive) heart failure I42.8 Other cardiomyopathies J90 Pleural effusion, not elsewhere classified R93.2 Abnormal findings on dx imaging of liver and biliary tract Office Visit 08/14/2017 10:15a Surgical Keyon Tinajero 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 [facility] Kathy Jackson J90 Pleural effusion, not elsewhere classified Office Visit 08/13/2017 [facility]la Singh, I42.8 Other 11:40a Cardiology Of M.DTobin cardiomyopathies [facility] I50.32 Chronic diastolic (congestive) heart failure R06.02 Shortness of breath J90 Pleural effusion, not elsewhere classified R05 Cough Office Visit 08/06/2017 [facility] Kayla Singh, I42.8 Other 3:00p Cardiology Of MTobinDTobin cardiomyopathies [facility] R06.02 Shortness of breath I50.32 Chronic diastolic (congestive) heart failure J90 Pleural effusion, not elsewhere classified R60.9 Edema, unspecified 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 breath I50.9 Heart failure, unspecified I42.8 Other cardiomyopathies Office Visit 06/27/2017 9:45a [facility] Samantha Coats I50.32 Chronic diastolic Of Administrative Representative PA (congestive) heart failure R06.02 Shortness of breath J90 Pleural effusion, not elsewhere classified I11.0 Hypertensive heart disease with heart failure Office Visit 06/14/2017 1:45p [facility] Kayla Singh, I50.32 Chronic diastolic Cardiology Of M.DTobin (congestive) heart Administrative Representative failure R06.02 Shortness of breath R60.9 Edema, unspecified J90 Pleural effusion, not elsewhere classified I31.9 Disease of pericardium, unspecified I42.8 Other cardiomyopathies Office Visit 03/18/2017 9:00a [facility] Samantha Coats, R06.02 Shortness of Of Administrative Representative PA breath I50.32 Chronic diastolic (congestive) heart failure R60.9 Edema, unspecified Office Visit 02/15/2017 8:30a [facility] Samantha Coats, R06.02 Shortness of Of Administrative Representative PA breath I50.32 Chronic diastolic (congestive) heart failure R60.9 Edema, unspecified Office Visit 01/15/2017 10:45a [facility] Kayla Singh, I50.32 Chronic diastolic Cardiology Of M.Guy (congestive) heart Administrative Representative failure R06.02 Shortness of breath Z01.810 Encounter for preprocedural cardiovascular examination Office Visit 01/10/2017 3:30p [facility] Samantha Coats, R06.02 Shortness of PA breath I50.31 Acute diastolic (congestive) heart failure I10 Essential (primary) hypertension J90 Pleural effusion, not elsewhere classified Office Visit 12/27/2016 [place] Isabella Sandra I50.30 Unspecified 2:44p Cardiology Kathy Gomez diastolic (congestive) heart failure Office Visit 12/26/2016 [facility] Kayla Singh, I11.0 Hypertensive heart 8:31a Cardiology Kathy disease with heart Administrative Representative failure I50.9 Heart failure, unspecified I45.10 Unspecified right bundle-branch block J90 Pleural effusion, not elsewhere classified Office Visit 12/26/2016 2:03p [facility] Ratna R06.02 Shortness of Assoc,mayi Nj D.O. 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 unspecified Hospitalists I10 Essential (primary) hypertension Z78.9 Other specified health status Office Visit 08/17/2015 3:00p Neurosurgery Wyatt Mims, 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 at [facility] AT [facility]10/20/2018 9:00 am - Monica Tran MD at [facility]08/27/2018 - Monica Tran, MDR06.02 Shortness of breathNew Orders:6 Minute Walk, Ordered: 08/27/18G47.33 Obstructive sleep apnea (adult) (pediatric)J90 Pleural effusion, not elsewhere classified
--- OUTSIDE RECORDS SUMMARY | 2018-09-21 12:37 | XMS REPORT | Continuity of Care Document ---
:1945 External Reference #:[id number] Author Name Covert, Chel Care Team Providers Name Role Phone Norma Rae FNP Care Team Information Test Preparer Unavailable Geraldo Gomes MD Primary Care Physician Unavailable Payers Type Date Identification Numbers Payment Provider Subscriber Effective: Policy Number: [id number] Medicare Blue Ppo Komal Bush 2017 PayID: [id number] [address] [address] [place] [address] Expires: 2017 Policy Number: [id number] [employer] Komal Bush PayID: [id number] [address] [place] [address] Expires: 2017 Policy Number: [id number] Va/ Non Va Care Komal Finleylwell PayID: [id number] [address] [address] [place] [address] Advance Directives Description No Information Available Problems [...] 04/04/2018 Primary cardiomyopathy Kayla Singh M.D. Active Onset: 09/05/2018 Aortic valve disorder Kayla Singh M.D. Active Family History Date Family Member(s) Problem(s) Comments General Heart Disease General [place] General Sister had rheumatic fever and a valve replacement General Gout Father Heart Disease Mother due to Brain Aneurysm () Siblings 1 Siblings 1 RF childhood hx-valve replacement Social History Type Date Description Comments Sex Unknown Marital Status Lives With Tobacco Use Start: Unknown End: Former Cigarette Smoker Unknown Tobacco Use Start: Unknown Chews tobacco ETOH Use Currently consumes Daily 2 beer & alcohol scotch Tobacco Use Start: Unknown End: Patient is a former Unknown smoker Recreational Drug Use Denies Drug Use Tobacco Use Start: Unknown Chews tobbaco Smoking Status Reviewed: 09/05/18 Chews tobbaco Exercise Type/Frequency Does not exercise Allergies, Adverse Reactions, Alerts Date Description Reaction Status Severity Comments 07/25/2015 Penicillin Active 07/25/2015 Codeine Active 09/13/2017 Nitro-Dur Urticaria Active Medications Medication Date Status Form Strength Qnty SIG Indications Ordering Provider Prednisone 09/01/ Active TBPK 10mg (48) 16uni 1 by mouth Kayla 2018 ts every day Kathy Singh Oxygen 05/06/ Active Misc 1unit D/c o2 Monica 2017 bridgett Tran MD Cpap 04/04/ Active Device 1unit for use Kayla 2017 s while Francisco, sleeping M.D. Torsemide 02/11/ Active Tablets 20mg 30tab 1 tab by Atif 2017 s mouth F. every day( Mauser, taken in M.D. the am) Tylenol 00/ Active 325mg 2 every 8 Unknown 0000 hours prn Spironolactone 00/00/ Active Tablets 50mg 90tab 1 tablet Kayla 0000 s by mouth Francisco, every day M.D. Atenolol / Active Tablets 25mg 1 by mouth Unknown 0000 every day Allopurinol / Active Tablets 100mg 2 tabs by Unknown 0000 mouth every day Prednisone 09/17/ Hx Tablets 5mg 60tab two tablet R05 Monica 2018 - s by mouth Marc, 08/31/ every 2018 morning Isosorbide 08/06/ Hx Tablets ER 30mg 90tab 1 by mouth L23.1 Kayla Mononitrate ER 2017 - 24HR s every day Levy, 11/11/ at [facility] M.D. 2017 prn SOBt Metoprolol 07/18/ Hx Tablets ER 25mg 90tab 1 by mouth Kayla Succinate ER 2017 - 24HR s every day Levy, M.D. 2017 Oxygen 07/11/ Hx Misc 2L 1unit 2 L nasal Kayla 2017 - s canula Levy, 05/06/ with M.D. 2018 sleep. Potassium 02/15/ Hx Tablets ER 10Meq 30tab 1 by mouth I50.32 Kayla Chloride Yumiko ER 2017 - s every day Levy, 11/11/ w/ M.D. 2017 torsemide Nitroglycerin 01/30/ Hx Patches 0.4mg/HR 30uni 1 patch to L23.1 Kayla 2017 - 24HR ts chest wall Francisco, 08/06/ in the .D. 2016 evening, remove after 12 hours. Metoprolol 12/31/ Hx Tablets ER 25mg 30tab 1 by mouth Wyatt Succinate ER 2017 - 24HR s daily Prasanna, M.D. 2017 Aspir-81 / Hx Tablets DR [...] - 2016 Lasix / Hx Tablets 20mg 60tab 1 by mouth Kayla 0000 - s Levy, Saturday - .2016 2 tabs on Saturday Metoprolol / Hx Tablets ER 50mg 1/2 tablet Kayla Succinate ER 0000 - 24HR by mouth Levy, 07/18/ daily in M.D. 2016 the morning Immunizations Description No Information Available Vital Signs Date Vital Result Comment 09/05/2018 10:26am Height 70 inches 5'10" Weight 204.00 lb with shoes Heart Rate 80 /min BP Systolic Sitting 112 mmHg BP Diastolic Sitting 70 mmHg BMI (Body Mass Index) 29.3 kg/m2 08/27/2018 12:05pm Height 70 inches 5'10" Weight [...] Date Facility Test Result H/L Range Note CBC Auto Diff 09/02/2018 [facility] White Blood 7.7 10^3/uL N 3.5-10.[address] [place] [address] [phone] Red Blood Count 4.63 10^6/uL N 4.00-5.40 Hemoglobin 14.9 g/dL N 14.0-18.0 Hematocrit 46 % N 42-52 Mean Corpuscular Volume 99 fL High 80-94 Mean Corpuscular Hemoglobin 32 pg High 27-31 Mean Corpuscular HGB Conc 33 g/dL N 31-36 Red Cell Distribution Width 20 % High 10.5-15 Platelet Count 188 10^3/uL N 150-450 Mean Platelet Volume 10.2 fL N 7.4-10.4 Abs Neutrophils 6.5 10^3/uL N 1.5-7.7 Abs Lymphocytes 0.6 10^3/uL Low 1.0-4.8 Abs Monocytes 0.6 10^3/uL N 0-0.8 Abs Eosinophils 0 10^3/uL N 0-0.6 Abs Basophils 0 10^3/uL N 0-0.2 Abs Nucleated RBC 0 10^3/uL Granulocyte % 84.4 % Lymphocyte % 7.8 % Monocyte % 7.2 % Eosinophil % 0.3 % Basophil % 0.3 % Nucleated Red Blood Cells % 0 Laboratory test 09/02/2018 [facility] Ferritin 74.9 ng/mL N 24 -336 [address] [place] [address] [phone] Order 08/27/2018 [employer] Service Tray Attendant In-House 6 Minute Walk <pending> CBC Auto Diff 07/21/2018 [facility] White Blood 6.9 10^3/uL N 3.5-10.[address] [place] [address] [phone] Red Blood Count 4.39 10^6/uL N 4.00-5.40 [...] Blood Cells % 0.1 Laboratory test 07/21/2018 [facility] Ferritin 34.1 ng/mL N 24 -336 [address] [place] [address] [phone] CBC Auto Diff 05/28/2018 [facility] White Blood 5.5 10^3/uL N 3.5-10.[address] [place] [address] [phone] Red Blood Count 3.69 10^6/uL Low 4.00-5.40 [...] Blood Cells % 0 Laboratory test 05/28/2018 [facility] Ferritin 56.5 ng/mL N 24 -336 [address] [place] [address] [phone] CBC Auto Diff 05/14/2018 [facility] White Blood 5.9 10^3/uL N 3.5-10.[address] [place] [address] [phone] Red Blood Count 3.60 10^6/uL Low 4.00-5.40 Hemoglobin 12.9 g/dL Low 14.0-18.0 Hematocrit 38 % Low 42-52 Mean Corpuscular Volume 107 fL High 80-94 4 Mean Corpuscular Hemoglobin 36 pg High 27-31 [...] Red Blood Cells % 0.2 Laboratory 05/14/2018 [facility] Ferritin 85.2 N 24-336 5 test finding [address] ng/[place] [address] [phone] Laboratory 05/09/2018 [facility] Therapeutic (SEE 6, 7 test finding [address] Phlebotomy NOTE) [place] [address] [phone] Laboratory 03/14/2018 [facility] B-Type 326 pg/mL High 8 test finding [address] [place] [address] Peptide BNP [phone] Basic 03/14/2018 [facility] Sodium 136 N 135-[address] mmol/[place] [address] [phone] Potassium 4.2 mmol/L N 3.5-5.0 Chloride 98 mmol/L Low 101-111 Co2 Carbon Dioxide 31 mmol/L N 22-32 Anion Gap 7 mmol/L N 2-11 Glucose 90 mg/dL N 70-100 Blood Urea Nitrogen 29 mg/dL High 6-24 Creatinine 1.14 mg/dL N 0.67-1.17 BUN/Creatinine Ratio 25.4 High 8-20 Calcium 9.7 mg/dL N 8.6-10.3 Egfr Non- 63.0 >60 Egfr 76.2 >60 9 Iron & Iron Binding 03/14/2018 [facility] Iron 150 g/dL N 50 -[address] [place] [address] [phone] Unsaturated Iron Binding 134 g/dL Total Iron Binding Capacity 284 g/dL N 250-450 Transferrin 203 mg/dL N 203-362 % Iron Saturation 53 % N 15-55 CBC Auto Diff 02/04/2018 [facility] White Blood 6.3 10^3/uL N 3.5-10.[address] [place] [address] [phone] Red Blood Count 4.65 10^6/uL N 4.00-5.40 [...] Blood Cells % 0 Laboratory test 02/04/2018 [facility] Erythrocyte Sed 8 mm/Hr N 0-[address] [place] [address] [phone] Liver Function 02/04/2018 [facility] Total Protein 6.8 g/dL N 6.4-8.9 Panel [address] [place] [address] [phone] Albumin 4.1 g/dL N 3.2-5.2 Globulin 2.7 g/dL N 2-4 Albumin/Globulin Ratio 1.5 N 1-3 Total Bilirubin 1.10 mg/dL High 0.2-1.0 Direct Bilirubin 0.20 mg/dL High 0.03-0.18 Indirect Bilirubin 0.9 mg/dL N 0.3-1.0 Alkaline Phosphatase 137 U/L High 34-104 Alt 30 U/L N 7-52 Ast 31 U/L N 13-39 Laboratory test 02/04/2018 [facility] C Reactive 4.57 mg/L N < 8.01 finding 101 [facility] [place] [address] [phone] Iron & Iron 02/04/2018 [facility] Iron 158 g/dL N 50-[address] [place] [address] [phone] Unsaturated Iron Binding 130 g/dL Total Iron Binding Capacity 288 g/dL N 250-450 Transferrin 206 mg/dL N 203-362 % Iron Saturation 55 % N 15-55 Laboratory test 02/04/2018 [facility] Ferritin 435.3 High 24- [address] ng/[place] [address] [phone] Hemochromatosis 11/22/2017 [facility] Hemochromatosis See 10 Hereditary Dna [address] Result Summary Comment [place] MD [id number] [phone] Hemochromatosis Specimen WB Whole Blood Hemochromatosis Method See Comment 11 Hemochromatosis Results See Comment 12 Hemochromatosis Interpretation See Comment 13 Hemochromatosis Reviewed By See Comment 14 Hypersensitivity 11/22/2017 [facility] Aspergillus 14.2 <= 102 [address] fumigatus IgG mg/[place] [address] Ab [phone] Micropolyspora faeni IgG Ab <2.0 mg/L <=13.2 16 Thermoactinomyces vulgaris IgG 3.1 mg/L <=23.9 17 Laboratory test 11/22/2017 [facility] Erythrocyte Sed 17 mm/Hr N 0-[address] [place] [address] [phone] C Reactive Protein 6.03 mg/L High < 5.00 18 Cyclic Citrullinated Pep Igg TNP () 19 Hepatitis 11/22/2017 [facility] Hepatitis C Nonreactive Nonreactive Acute Panel [address] [place] [address] [phone] Hepatitis A AB Igm Nonreactive Nonreactive Hepatitis B Core AB Igm Nonreactive Nonreactive Hepatitis B Surface Ag Nonreactive Nonreactive Laboratory test 11/22/2017 [facility] Angiotensin 43 U/L 8 - 53 [address] [place] [address] Enzyme [phone] Connective 11/22/2017 [facility] Anti-Nuclear 1.2 U High 21 Tissue Panel [address] [place] [address] [phone] Cyclic Citrullinated Peptide <15.6 U 22 Interpretation See Comment 23 Hla B27 11/22/2017 [facility] Hla B27 Negative [address] [place] [address] [phone] Hla B27 Interp See Comment 25 Laboratory test 11/22/2017 [facility] Vitamin D, 44 pg/mL 18- 64 [address] 1,25 [place] [address] [phone] Basic Metabolic 11/12/2017 [facility] Sodium 137 mmol/L Low 139-[address] [place] [address] [phone] Potassium 4.2 mmol/L N 3.5-5.0 Chloride 99 mmol/L Low 101-111 Co2 Carbon Dioxide 31 mmol/L N 22-32 Anion Gap 7 mmol/L N 2-11 Glucose 115 mg/dL High 70-100 Blood Urea Nitrogen 34 mg/dL High 6-24 Creatinine 0.95 mg/dL N 0.67-1.17 BUN/Creatinine Ratio 35.8 High 8-20 Calcium 9.6 mg/dL N 8.6-10.3 Egfr Non- 77.7 >60 Egfr 99.9 >60 27 Laboratory test 11/12/2017 [facility] Magnesium 2.0 mg/dL N 1.9-2.[address] [place] [address] [phone] B-Type Natriuretic Peptide BNP 224 pg/mL High 29 CBC No Diff 11/12/2017 [facility] White Blood 6.8 10^3/uL N 3.5-10.[address] [place] [address] [phone] Red Blood Count 4.72 10^6/uL N 4.0-5.4 [...] N 7.4-10.4 Iron & Iron Binding 11/12/2017 [facility] Iron 138 g/dL N 50 -[address] [place] [address] [phone] Unsaturated Iron Binding 156 g/dL Total Iron Binding Capacity 294 g/dL N 250-450 Transferrin 210 mg/dL N 203-362 % Iron Saturation 47 % N 15-55 Laboratory 11/12/2017 [facility] Ferritin 470.5 High 24-336 test finding [address] ng/[place] [address] [phone] Laboratory 10/04/2017 [facility] Transferrin 187 mg/dL Abnormal 200 - 360 30 test finding [address] [place] [address] [phone] Iron & Iron 10/04/2017 [facility] Iron 115 N 50-[address] g/[place] [address] [phone] Unsaturated Iron Binding 155 g/dL Total Iron Binding Capacity 270 g/dL N 250-450 % Iron Saturation 43 % N 15-55 Laboratory test 10/04/2017 [facility] Cyclic <15.6 U [address] [place] [address] IgG [phone] [place]/Lambda 09/30/2017 [facility] Urine [place] Total <0.9000 <0.90 [address] Light Chain mg/dL 00 [place] [address] [phone] Urine Lambda Total Light Chain <0.7000 mg/dL <0.7000 33 Urine [place]/Lambda Light Chain See Comment 34 Laboratory test 09/20/2017 [facility] Body Fluid None Seen None Seen [address] [place] [address] [phone] Body Fluid C&S 09/20/2017 [facility] Body Fluid SEE RESULT [address] [place] [address] Stain [phone] Lactate 09/20/2017 [facility] Lactate 161 U/L 37 Dehydrogenase,BF [address] [place] [address] , BF [phone] Fluid Source PLEURAL 38 Body Fluid Glucose 09/20/2017 [facility] Glucose, BF 101 mg/dL [address] [place] [address] [phone] Fluid Source PLEURAL 40 Body Fluid Total 09/20/2017 [facility] Total Protein, BF 3.7 g/ dL [address] [place] [address] [phone] Fluid Source PLEURAL 42 Body Fluid Sodium 09/20/2017 [facility] Body Fluid Sodium 140 mmol/L [address] [place] [address] [phone] Fluid Type PLEURAL 44 Body Fluid Cell 09/20/2017 [facility] Body Fluid Pleural Fluid Count [address] [place] [address] [phone] Body Fluid Appearance Clear Body Fluid Color Yellow Body Fluid Volume 8 mL Body Fluid WBC 708 /mcL N 45 Body Fluid RBC 219 /mcL Body Fluid Neutrophils 3 % Body Fluid Lymph 38 % Body Fluid Ray 59 % Body Fluid Other Cells 17 Body Fluid Total Cells Counted 100 Body Fluid Comment (SEE NOTE) 46 Fluid Reviewed By MD (SEE NOTE) 47 Body Fluid Amylase 09/20/2017 [facility] BF Amylase 104 U/L 48 [address] [place] [address] [phone] Fluid Source PLEURAL 49 Body Fluid 09/20/2017 [facility] Albumin Level 2100 mg/dL [address] [place] [address] [phone] Fluid Source PLEURAL Body Fluid Protein 09/20/2017 [facility] Body Fluid PLEURAL Electrophoresis [address] [place] [address] [phone] BF Total Protein 3.70 g/dL 51 BF Albumin 56 % 52 BF Bfeni-6-Xlheeqnu 5 % 53 BF Dkmfo-6-Llbjkzvp 6 % 54 BF Beta Globulin 17 % 55 BF Gamma Globulin 16 % 56 Laboratory test 09/20/2017 [facility] Cytology Non-Learning Consultant SEE RESULT [address] [place] [address] [phone] Anca Panel For 09/17/2017 [facility] Myeloperoxidase AB < 0.2 U 58, [address] [place] [address] [phone] Proteinase 3 AB < 0.2 U 60 Laboratory test finding 09/17/2017 [facility] Anti Ssa/Ro <0.2 U [address] [place] [address] [phone] Anti SSB [place] <0.2 U 62 Centromere Auto Abs <0.2 U 63 Ferritin 655.4 ng/mL High 24-336 64 Rheumatoid Factor 15 IU/mL Abnormal <15 65 Scleroderma AB 09/17/2017 [facility] Scleroderma Ab <0.2 U 66 (SCL70) [address] [facility] [place] [address] [phone] Laboratory test 09/17/2017 [facility] TSH (Thyroid Stim 2.62 N 0.34- [address] Horm) mcIU/mL 5.60 [place] [address] [phone] Anti Nuclear Antibody 0.8 U 68 CBC Auto Diff 09/17/2017 [facility] White Blood 4.6 10^3/uL N 3.5-10.8 [place] [address] [phone] Red Blood Count 4.54 10^6/uL N 4.0-5.4 [...] Blood Cells % 0.1 Letty Escudero 09/17/2017 [facility] Ebv Capsid Positive Negative [place] [address] [phone] Ebv Capsid Ag IgM Ab Negative Negative Letty-Escudero Nuclear Antigen Positive Negative Letty-Escudero Virus Interp See Comment 69 Vitamin B12 And 09/17/2017 [facility] Vitamin B12 464 pg/mL N 180-[address] [place] [address] [phone] Folic Acid (Folate) 4.48 ng/mL >3.99 71 Inr/Protime 09/17/2017 [facility] Inr 0.96 N 0.77-1.[address] [place] [address] [phone] Laboratory test 09/13/2017 [facility] Erythrocyte Sed 11 mm/Hr N 0-[address] [place] [address] [phone] Angiotensin Converting Enzyme 43 U/L 8 - 53 72 Anti Nuclear Antibody 0.7 U 73 Rheumatoid Factor <15 IU/mL <15 74 CBC Auto 09/13/2017 [facility] White Blood 3.0 10^3/uL Low 3.5 -10.[address] [place] [address] [phone] Red Blood Count 4.60 10^6/uL N 4.0-5.4 [...] Blood Cells % 0.1 Laboratory test 09/13/2017 [facility] B-Type 171 pg/mL High [address] [place] [address] Peptide BNP [phone] C Reactive Protein 21.55 mg/L High < 5.00 76 Laboratory test 08/14/2017 [facility] Surgical SEE RESULT [address] [place] [address] [phone] Protein 07/20/2017 [facility] Total 7.0 g/dL 6.3 - Electrophoresis [address] Protein(Pep) 7.9 [place], [place] [address] [phone] Albumin 3.5 g/dL 3.4-4.7 Alpha-1 Globulin 0.3 g/dL 0.1-0.3 Alpha-2 Globulin 0.8 g/dL 0.6-1.0 Beta Globulin 1.0 g/dL 0.7-1.2 Gamma Globulin 1.3 g/dL 0.6-1.6 Albumin/Globulin Ratio 1.01 Impression See Comment 78 Urine Protein Elctrophoresis 07/20/2017 [facility] Albumin 61 % (RDM) [address] [place] [address] [phone] Alpha-1 Globulin 5 % Alpha-2 Globulin 10 % Beta Globulin 15 % Gamma Globulin 9 % Albumin/Globulin Ratio 1.57 % Impression See Comment 79 Total Protein(Pep) Urine 8 mg/dL 80 Laboratory test 07/02/2017 [facility] Partial 29.5 seconds N 26.0-36.[address] [place] [address] PTT [phone] Inr/Protime 07/02/2017 [facility] Inr 1.01 N 0.89-1.11 DR[address] [place], [place] [address] [phone] CBC Auto Diff 07/02/2017 [facility] White Blood 5.9 10^3/uL N 3.5-10.[address] [place] [address] [phone] Red Blood Count 4.75 10^6/uL N 4.0-5.4 [...] Red Blood Cells % 0.1 Laboratory test 07/02/2017 [facility] B-Type 255 pg/mL High [address] [place] [address] Peptide BNP [phone] Laboratory test 07/02/2017 [facility] Magnesium 2.0 mg/dL N 1.9-[address] .7 [place] [address] [phone] Basic Metabolic 07/02/2017 [facility] Sodium 137 mmol/L N 133- [address] [place] [address] [phone] Potassium 4.4 mmol/L N 3.5-5.0 Chloride 100 mmol/L Low 101-111 Co2 Carbon Dioxide 30 mmol/L N 22-32 Anion Gap 7 mmol/L N 2-11 Glucose 63 mg/dL Low 70-100 Blood Urea Nitrogen 22 mg/dL N 6-24 Creatinine 1.03 mg/dL N 0.67-1.17 BUN/Creatinine Ratio 21.4 High 8-20 Calcium 9.1 mg/dL N 8.6-10.3 Egfr Non- 70.8 >60 Egfr 91.0 >60 82 Pre Cath Panel 06/27/2017 [facility] Partial <pending> [address] [place] [address] PTT [phone] Basic Metabolic 03/04/2017 [facility] Sodium 137 mmol/L N 133- [address] [place] [address] [phone] Potassium 4.4 mmol/L N 3.5-5.0 Chloride 101 mmol/L N 101-111 Co2 Carbon Dioxide 28 mmol/L N 22-32 Anion Gap 8 mmol/L N 2-11 Glucose 110 mg/dL High 70-100 Blood Urea Nitrogen 18 mg/dL N 6-24 Creatinine 0.99 mg/dL N 0.67-1.17 BUN/Creatinine Ratio 18.2 N 8-20 Calcium 9.3 mg/dL N 8.6-10.3 Egfr Non- 74.3 N >60 Egfr 95.6 N >60 83 Laboratory test 03/04/2017 [facility] B-Type 391 pg/mL High [address] [place] [address] Peptide BNP [phone] Basic Metabolic 02/07/2017 [facility] Sodium 135 mmol/L N 133- [address] [place] [address] [phone] Potassium 4.2 mmol/L N 3.5-5.0 Chloride 100 mmol/L Low 101-111 Co2 Carbon Dioxide 28 mmol/L N 22-32 Anion Gap 7 mmol/L N 2-11 Glucose 92 mg/dL N 70-100 Blood Urea Nitrogen 17 mg/dL N 6-24 Creatinine 1.00 mg/dL N 0.67-1.17 BUN/Creatinine Ratio 17.0 N 8-20 Calcium 9.1 mg/dL N 8.6-10.3 Egfr Non- 73.5 N >60 Egfr 94.5 N >60 85 Laboratory test 02/07/2017 [facility] B-Type 238 pg/mL High [address] [place] [address] Peptide BNP [phone] Stone Analysis 01/18/2017 [facility] Kidney Stone Right N [address] [place] [address] [phone] Kidney Stone 1st Constituent See Comment N 87 Kidney Stone 2nd Constituent See Comment N 88 Kidney Stone 3rd Constituent See Comment N 89 Laboratory test 01/12/2017 [facility] B-Type 220 pg/mL High [address] [place] [address] Peptide BNP [phone] Basic Metabolic 01/12/2017 [facility] Sodium 136 mmol/L N 133- [address] [place] [address] [phone] Potassium 4.5 mmol/L N 3.5-5.0 Chloride 101 mmol/L N 101-111 Co2 Carbon Dioxide 28 mmol/L N 22-32 Anion Gap 7 mmol/L N 2-11 Glucose 89 mg/dL N 70-100 Blood Urea Nitrogen 18 mg/dL N 6-24 Creatinine 0.97 mg/dL N 0.67-1.17 BUN/Creatinine Ratio 18.6 N 8-20 Calcium 9.2 mg/dL N 8.6-10.3 Egfr Non- 76.1 N >60 Egfr 97.8 N >60 91 Laboratory test 01/12/2017 [facility] Magnesium 1.9 mg/dL N 1.9-2.7 finding [address] [place] [address] [phone] Laboratory test 09/30/2015 [facility] Body Fluid SEE RESULT 92, 93 finding 101 [facility] [place] [address] [phone] Laboratory test 09/06/2015 [facility] Inr/Protime 0.91 N 0.89- 1.11 finding [address] [place] [address] [phone] Partial Thrombo Time PTT 30.3 seconds N 26.0-36.3 Type & Screen 09/06/2015 [facility] Patient Blood Type O Positive N [address] [place] [address] [phone] Antibody Screen NEGATIVE N 1 ORDERED:07/21/18 :01/19/19 STANDING ORDER TO OCCUR Q 6 WEEKS 2 EVERY WEEK S/O 03/10/18-09/11/18 3 EVERY WEEK S/O 03/10/18-09/11/18 4 Consistent with Previous Results Reported on 05/07/18 5 EVERY WEEK S/O 03/10/18-09/11/18 6 [id number] 7 Approximately 450 ml of blood removed. 8 >100 to <200 pg/mL: likely compensated congestive heart failure (CHF) 200 to 400 pg/mL: likely moderate CHF >400 pg/mL: likely moderate to severe CHF 9 Because ethnic data is not always readily [...] 15-29 5 Kidney failure <15 (or dialysis) 10 RESULT: COMPLEX (SEE RESULT AND INTERPRETATION) 11 A multiplex PCR based assay utilizing the [employer] Array platform was used to test for the following three mutations in the HFE gene; C282Y, H63D, and S65C. Because of the minimal effect on iron metabolism associated with the S65C mutation, it is only reported when it is found with the C282Y mutation (i.e. if the patient has the C282Y/S65C genotype). 12 C282Y: One copy of the C282Y mutation was identified. H63D: Not detected. S65C: Not detected. 13 This result indicates that this individual is at minimum a carrier of hereditary hemochromatosis (HH). The diagnosis of HH cannot be excluded because approximately 3 to 5% of patients with HH in the [place] population carry this allele. For other ethnicities, [...] ADDITIONAL INFORMATION An online research opportunity called [facility] ([employer]), a project of [email or web address], is available for the recipient of this genetic test. This patient registry collects de-identified genetic and health information to advance the knowledge of genetic variants. [facility] is a collaborator of [employer]. This may not be applicable for all [...] allogenic donors will interfere with testing. Call [facility] for instructions for testing patients who have received a bone marrow transplant. Multiple in-silico evaluation tools may have been used to assist in the interpretation of these results. Of note, the sensitivity and specificity of these tools for the determination of pathogenicity is currently unvalidated. This test was developed and its performance characteristics determined by [facility] in a manner consistent with CLIA requirements. This test has not been cleared or approved by the U.S. Food and Drug Administration. 14 RESULT: Aminah Mcintyre Jr., Ph.D. Test Performed by: [facility] - [address] [address] 15 ADDITIONAL INFORMATION This test was developed and its performance characteristics determined by [facility] in a manner consistent with CLIA requirements. This test has not been cleared or approved by the U.S. Food and Drug Administration. 16 ADDITIONAL INFORMATION This test was developed using an analyte specific reagent. Its performance characteristics were determined by [facility] in a manner consistent with CLIA requirements. This test has not been cleared or approved by the U.S. Food and Drug Administration. 17 ADDITIONAL INFORMATION This test was developed using an analyte specific reagent. Its performance characteristics were determined by [facility] in a manner consistent with CLIA requirements. This test has not been cleared or approved by the U.S. Food and Drug Administration. Test Performed by: [facility] [address] [place] [address] 18 Acute inflammation: >10.00 19 Cancelled due to duplicate test on this order Test Performed by: [facility] [address] [place] [address] 20 Test Performed by: [facility] - [address] [address] 21 Interpretation: Weak Positive (1.1-2.9) REFERENCE VALUE <=1.0 (Negative) 22 REFERENCE VALUE <20.0 (Negative) 23 Tests for antibodies to dsDNA and EULOGIO antigens are not performed automatically unless the VINI result is > or= 3.0 U. Studies performed at [facility] indicate that positive VINI results <3.0 U are rarely accompanied by positive second order tests. Test Performed by: [facility] - [address] [address] 24 REFERENCE VALUE Not Applicable 25 RESULT: HLA-B27 antigen was not detected. ADDITIONAL INFORMATION Method: Flow Cytometry Performing Laboratory CLIA# [id number] Test Performed by: [address] [address] 26 ADDITIONAL INFORMATION This test was developed and its performance characteristics determined by [facility] in a manner consistent with CLIA requirements. This test has not been cleared or approved by the U.S. Food and Drug Administration. Test Performed by: [address] [place] [address] 27 Because ethnic data is not always readily [...] 15-29 5 Kidney failure <15 (or dialysis) 28 Copy Result to: SUE MISHRA ([id number]) 29 >100 to <200 pg/mL: likely compensated congestive heart failure (CHF) 200 to 400 pg/mL: likely moderate CHF >400 pg/mL: likely moderate to severe CHF 30 Test Performed by: [facility] - [address] [address] 31 REFERENCE VALUE <20.0 (Negative) Test Performed by: [facility] - [address] [address] 32 ADDITIONAL INFORMATION This test was developed and its performance characteristics determined by [facility] in a manner consistent with CLIA requirements. This test has not been cleared or approved by the U.S. Food and Drug Administration. 33 ADDITIONAL INFORMATION This test was developed and its performance characteristics determined by [facility] in a manner consistent with CLIA requirements. This test has not been cleared or approved by the U.S. Food and Drug Administration. 34 Ratio not calculated because the Total [place] and Total Lambda values are less than the reportable range. REFERENCE VALUE 0.7000-6.20 Test Performed by: [address] [address] 35 What is the body fluid source?: Pleural Fluid 36 SEE RESULT BELOW Name: KOMAL BUSH : [address]: Monica Tran MD Acct: [id number] Unit: [id number] AGE: 72 Location: [place] Re09/20/17 SEX: M Status: SUMIT CORREIAC SPEC: [id number] VERA: 09/20/17-2224 [facility] DR: Monica Tran MD REQ: [id number] RECD: 09/20/178056 STATUS: CASA VENEGAS DR: Geraldo Gomes MD _ SOURCE: PLEURAL FL SPDESC: ORDERED: BF Gianna/GS Procedure Result Reported Site Body Fluid Gram Stain Final 09/20/17- 1526 ML 4+ Neutrophils 4+ Nucleated Cells No Organisms Seen Preparation By Cytospin Smear Body Fluid Culture Final 09/24/17- 1026 ML No Growth Day 4 * ML - [facility] ([facility]) . END OF REPORT * ML=Testing performed at Main Lab DEPARTMENT OF PATHOLOGY, [address] [place] [address] Andrew Fleming M.D. Director [facility] # [id number] 37 REFERENCE VALUE Not Applicable 38 Test Performed by: [facility] [employer] - [address] [address] 39 REFERENCE VALUE Not Applicable 40 Test Performed by: [facility] [employer] - [address] [address] 41 REFERENCE VALUE Not Applicable 42 Test Performed by: [facility] - [facility] [address] [place] [address] 43 REFERENCE VALUE Not Applicable 44 Test Performed by: [facility] - [address] [address] 45 -- REFERENCE VALUE -- Synovial: <150/mcL Peritoneal: <500/mcL Pleural: <500/mcL Pericardial: <500/mcL 46 Differential performed on concentrated smear. 47 Reactive mesothelial elements, macrophages and lymphocytes predominate. No acute inflammation or malignancy seen. Reviewed by Dr. Fleming 48 REFERENCE VALUE Not Applicable 49 Test Performed by: [facility] - [address] [address] 50 INTERPRETIVE INFORMATION: Albumin, Body Fluid A reference interval has not been established for body fluid specimens. Performed by [facility], [address] [place] [address] [email or web address], David Ferreira MD - Lab. Director Test Performed by: [facility] [address] [place] [address] 51 REFERENCE VALUE Not Applicable ADDITIONAL INFORMATION This test has been modified from the wireworker supervisor's instructions. Its performance characteristics were determined by [facility] in a manner consistent with CLIA requirements. This test has not been cleared or approved by the U.S. Food and Drug Administration. 52 REFERENCE VALUE Not Applicable 53 REFERENCE VALUE Not Applicable 54 REFERENCE VALUE Not Applicable 55 REFERENCE VALUE Not Applicable 56 REFERENCE VALUE Not Applicable ADDITIONAL INFORMATION This test was developed and its performance characteristics determined by [facility] in a manner consistent with CLIA requirements. This test has not been cleared or approved by the U.S. Food and Drug Administration. Test Performed by: [facility] - [address] [address] 57 SEE RESULT BELOW Name: KOMAL BUSH : [address]: Monica Tran MD Acct: [id number] Unit: [id number] AGE: 72 Location: [place] Re09/20/17 SEX: M Status: REG SDC SPEC: [id number] VERA: 09/20/17-[address]: Monica Tran MD REQ: [id number] RECD: 09/20/17 STATUS: SOUT _ ORDERED: LEVEL [...] performed at Main Lab DEPARTMENT OF PATHOLOGY, [address] [place] [address] Andrew Fleming M.D. Director [facility] # [id number] RUN DATE: 09/24/17 [facility] LAB LIVE PAGE 2 Patient: KOMAL BUSH [id number] (Continued) CLINICAL HISTORY (Continued) CLINICAL HISTORY Left pleural effusion. GROSS DESCRIPTION 1600 mls of clear singletary fluid. Signed (signature on file) Lisa Mcgarry MD 1126 END OF REPORT * ML=Testing performed at Main Lab DEPARTMENT OF PATHOLOGY, [address] [place] [address] Andrew Fleming M.D. Director [facility] # [id number] 58 FASTING 59 REFERENCE VALUE <0.4 (Negative) 60 REFERENCE VALUE <0.4 (Negative) Test Performed by: [address] [address] 61 REFERENCE VALUE <1.0 (Negative) Test Performed by: [facility] [address] [place] [address] 62 REFERENCE VALUE <1.0 (Negative) Test Performed by: [address] [address] 63 REFERENCE VALUE <1.0 (Negative) Test Performed by: [address] [address] 64 FASTING 65 Test Performed by: [facility] - [address] [address] 66 REFERENCE VALUE <1.0 (Negative) Test Performed by: [facility] - [address] [address] 67 FASTING 68 REFERENCE VALUE <=1.0 (Negative) Test Performed by: [address] [address] 69 RESULT: Results suggest past infection. ADDITIONAL INFORMATION [...] primary infection with EBV. Test Performed by: [facility] [employer] [address] [place] [address] 98 Normal Range 180 to 914 Indeterminate Range 145 to 180 Deficient Range <145 71 FASTING 72 Test Performed by: [facility] - [address] [address] 73 REFERENCE VALUE <=1.0 (Negative) Test Performed by: [address] [address] 74 Test Performed by: [address] [address] 75 >100 to <200 pg/mL: likely compensated congestive heart failure (CHF) 200 to 400 pg/mL: likely moderate CHF >400 pg/mL: likely moderate to severe CHF 76 Acute inflammation: >10.00 77 SEE RESULT BELOW Name: KOMAL BUSH : [address]: Keyon Jackson MD Acct: [id number] Unit: [id number] AGE: 72 Location: [facility] Re08/14/17 SEX: M Status: REG REF SPEC: [id number] VERA: 08/14/17-[address]: Keyon Jackson MD REQ: [id number] RECD: 08/14/17533 STATUS: SERGIO VENEGAS DR: Norma Ledezmasher MD _ ORDERED: LEVEL 4, SPEC ST NON-ORG COMMENTS: [id number] FINAL DIAGNOSIS Abdominal fat pad, biopsy: -- [...] performed at Main Lab DEPARTMENT OF PATHOLOGY, [address] [place] [address] Andrew Fleming M.D. Director [facility] # [id number] 78 RESULT: No apparent monoclonal protein on serum electrophoresis. Test Performed by: [place] [address] 79 RESULT: All fractions present, no apparent M-spike. 80 ADDITIONAL INFORMATION On 02/05/2017 the total protein assay method changed resulting in approximately a 15% increase in protein values. Test Performed by: [place] [id number] 81 >100 to <200 pg/mL: likely compensated congestive heart failure (CHF) 200 to 400 pg/mL: likely moderate CHF >400 pg/mL: likely moderate to severe CHF 82 Because ethnic data is not always [...] 5 Kidney failure <15 (or dialysis) 83 Because ethnic data is not always readily [...] 15-29 5 Kidney failure <15 (or dialysis) 84 >100 to <200 pg/mL: likely compensated congestive heart failure (CHF) 200 to 400 pg/mL: likely moderate CHF >400 pg/mL: likely moderate to severe CHF 85 Because ethnic data is not always readily [...] 15-29 5 Kidney failure <15 (or dialysis) 86 >100 to <200 pg/mL: likely compensated congestive heart failure (CHF) 200 to 400 pg/mL: likely moderate CHF >400 pg/mL: likely moderate to severe CHF 87 RESULT: 60% Calcium oxalate monohydrate 88 RESULT: 30% Calcium oxalate dihydrate 89 RESULT: 10% Calcium phosphate (apatite) ADDITIONAL INFORMATION This test was developed and its performance characteristics determined by [facility] in a manner consistent with CLIA requirements. This test has not been cleared or approved by the U.S. Food and Drug Administration. Test Performed by: [facility] - [address] [address] 90 >100 to <200 pg/mL: likely compensated congestive heart failure (CHF) 200 to 400 pg/mL: likely moderate CHF >400 pg/mL: likely moderate to severe CHF 91 Because ethnic data is not always readily [...] 15-29 5 Kidney failure <15 (or dialysis) 92 LUMBAR PUNCTURE FROM ICISION/PREVIOUS LUMBAR SURGERY SPECIMEN DESCRIPTION: INCISION DRAINAGE 93 SEE RESULT BELOW Name: KOMAL BUSH : [address]: Wyatt Mims MD Acct: [id number] Unit: [id number] AGE: 70 Location: [facility] Re09/30/15 SEX: M Status: REG REF SPEC: [id number] VERA: 09/30/15-1012 [facility] DR: Wyatt Mims MD REQ: [id number] RECD: 09/30/15 STATUS: COMP _ SOURCE: MISC FLUID SPDESC:DRAINAGE ORDERED: BF Gianna/LYNDSAY COMMENTS: LUMBAR PUNCTURE FROM ICISION/PREVIOUS LUMBAR SURGERY SPECIMEN DESCRIPTION: INCISION DRAINAGE Procedure Result Reported Site Body Fluid Gram Stain Final 10/01/15- 0714 ML No Neutrophils Observed No Organisms Seen Preparation By Direct Smear Body Fluid Culture Final 10/04/15- 1002 ML No Growth Day 4 * ML - MAIN LAB ([facility]) . END OF REPORT * ML=Testing performed at Main Lab DEPARTMENT OF PATHOLOGY, [address] [place] [address] Andrew Fleming M.D. Director [facility] # [id number] Procedures Date Code Description Status 08/27/2018 83530 Pulmonary Stress [facility] Measurement Heart Rate, Completed Oximetry 04/04/2018 09709 EKG Tracing & Interpretation Completed 02/14/2018 65444 Polysomnography Sleep Staging 4+ Parameters Completed 12/13/2017 29436 ECHO Transthoracic, Real-Time 2D With Doppler And Color Completed Flow 12/13/2017 61738 ECHO Transthoracic, Real-Time 2D With Doppler And Color Completed Flow 10/04/2017 93814 EKG Tracing & Interpretation Completed 09/20/2017 94808 Thoracentesis W/ Img Guidance Completed 08/14/2017 27564 Biopsy Skin Lesion Single Completed 08/06/2017 78604 ECHO Transthoracic, Real-Time 2D With Doppler And Color Completed Flow 08/06/2017 08578 ECHO Transthoracic, Real-Time 2D With Doppler And Color Completed Flow 08/06/2017 27539 EKG Tracing & Interpretation Completed 08/06/2017 71423 EKG Tracing & Interpretation Completed 07/09/2017 50303 Cardiac Cath,LT Hrtmincl Intraprocedural Ink LT Ventricul Completed Mammary 07/03/2017 67823 EKG Tracing & Interpretation Completed 01/10/2017 44864 EKG Tracing & Interpretation Completed 12/27/2016 39517 EKG, Interpretation Only Completed 12/26/2016 86960 ECHO Transthorasic Realtime 2D W Doppler & Color Flow Hosp Completed 07/23/2016 70156 Treadmill Interp/Report Only Completed 07/23/2016 93408 Stress Test Supervsn W/Out I/R Completed 07/23/2016 11217 EKG, Interpretation Only Completed 09/13/2015 06657 Stanley/Facet/Foraminotomy;Vertebral Segment; Lumbar Completed 09/13/2015 07369 Stereotactic Computer-Assisted, Spinal Completed 09/13/2015 85373 Non-Segmental Instrumentation Posterior 1 Interspace Completed 09/13/2015 98084 Arhtrodesis Post Lateral W/Lami-Lumbar Completed Encounters Type Date Location Provider Dx Diagnosis Office Visit 08/27/2018 Pulmonology And Monica Tran, R06.02 Shortness of 12:00p Sleep Services Of MD cardona [facility] G47.33 Obstructive sleep apnea (adult) (pediatric) J90 Pleural effusion, not elsewhere classified Office Visit 05/09/2018 [place] Kayla Singh, 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 Food Service Tray Attendant AT [facility] G47.33 Obstructive sleep apnea (adult) (pediatric) J44.9 Chronic obstructive pulmonary disease, unspecified E83.119 Hemochromatosis, unspecified J94.9 Pleural condition, unspecified R58 Hemorrhage, not elsewhere classified Office Visit 04/21/2018 8:00a Pulmonology And Monica G47.33 Obstructive sleep Sleep Services Of MD Marc apnea (adult) Food Service Tray Attendant (pediatric) J90 Pleural effusion, not elsewhere classified Office Visit 04/18/2018 8:00a [place] [facility] Kayla Singh, R42 Dizziness and Of Food Service Tray Attendant AT [facility] M.D. 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, unspecified I50.32 Chronic diastolic (congestive) heart failure I27.20 Pulmonary hypertension, unspecified Office Visit 11/22/2017 9:00a Rheumatology Thang Ramirez, J90 Pleural effusion, Services Of John Chavez not elsewhere classified 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, unspecified I31.9 Disease of pericardium, unspecified 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 R76.0 Raised antibody titer Z79.52 half-way (current) use of systemic steroids Office Visit 11/11/2017 7:15a Pulmonology And Monica J90 Pleural effusion, Sleep Services Of MD Marc not elsewhere Food Service Tray Attendant classified R06.83 Snoring Office Visit 10/04/2017 8:20a [place] Kayla Singh, I50.32 Chronic diastolic Cardiology Jewels Chavez (congestive) heart [facility] AT [facility] failure J90 Pleural effusion, not elsewhere classified I27.20 Pulmonary hypertension, unspecified I27.81 Cor pulmonale (chronic) Office Visit 09/30/2017 7:00a Pulmonology And Monica J90 Pleural effusion, Sleep Services Of MD Marc not elsewhere Food Service Tray Attendant classified I27.20 Pulmonary hypertension, unspecified Office Visit 09/17/2017 9:30a Pulmonology And Monica J90 Pleural effusion, Sleep Services Of MD Marc not elsewhere [facility] classified I27.20 Pulmonary hypertension, unspecified R05 Cough R09.02 Hypoxemia Office Visit 09/13/2017 9:20a [place] Kayla Singh I50.32 Chronic diastolic Cardiology Of Kathy (congestive) heart Food Service Tray Attendant AT [facility] failure 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 J90 Pleural effusion, not elsewhere classified R50.9 Fever, unspecified R05 Cough I31.9 Disease of pericardium, unspecified I27.20 Pulmonary hypertension, unspecified I27.81 Cor pulmonale (chronic) Office Visit 08/22/2017 8:15a [place] [facility] Samantha Coats I50.32 Chronic diastolic Of Food Service Tray Attendant PA (congestive) heart failure I42.8 Other cardiomyopathies J90 Pleural effusion, not elsewhere classified R93.2 Abnormal findings on dx imaging of liver and biliary tract Office Visit 08/14/2017 10:15a Surgical Keyon Tinajero 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 [facility] Kathy Jackson J90 Pleural effusion, not elsewhere classified Office Visit 08/13/2017 [place] Kayla Singh I42.8 Other 11:40a Cardiology Of Kathy cardiomyopathies [facility] I50.32 Chronic diastolic (congestive) heart failure R06.02 Shortness of breath J90 Pleural effusion, not elsewhere classified R05 Cough Office Visit 08/06/2017 [place] Kayla Singh I42.8 Other 3:00p Cardiology Of Kathy cardiomyopathies [facility] R06.02 Shortness of breath I50.32 Chronic diastolic (congestive) heart failure J90 Pleural effusion, not elsewhere classified R60.9 Edema, unspecified 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 breath I50.9 Heart failure, unspecified I42.8 Other cardiomyopathies Office Visit 06/27/2017 9:45a [facility] Samantha Coats, I50.32 Chronic diastolic Of Food Service Tray Attendant PA (congestive) heart failure R06.02 Shortness of breath J90 Pleural effusion, not elsewhere classified I11.0 Hypertensive heart disease with heart failure Office Visit 06/14/2017 1:45p [place] Kayla Singh, I50.32 Chronic diastolic Cardiology Of M.DTobin (congestive) heart Food Service Tray Attendant failure R06.02 Shortness of breath R60.9 Edema, unspecified J90 Pleural effusion, not elsewhere classified I31.9 Disease of pericardium, unspecified I42.8 Other cardiomyopathies Office Visit 03/18/2017 9:00a [facility] Samantha Coats, R06.02 Shortness of Of Food Service Tray Attendant PA breath I50.32 Chronic diastolic (congestive) heart failure R60.9 Edema, unspecified Office Visit 02/15/2017 8:30a [place] [facility] Samantha Coats, R06.02 Shortness of Of Food Service Tray Attendant PA breath I50.32 Chronic diastolic (congestive) heart failure R60.9 Edema, unspecified Office Visit 01/15/2017 10:45a [place] Kayla Singh, I50.32 Chronic diastolic Cardiology Of M.DTobin (congestive) heart Food Service Tray Attendant failure R06.02 Shortness of breath Z01.810 Encounter for preprocedural cardiovascular examination Office Visit 01/10/2017 3:30p [facility] Samantha Coats, R06.02 Shortness of PA breath I50.31 Acute diastolic (congestive) heart failure I10 Essential (primary) hypertension J90 Pleural effusion, not elsewhere classified Office Visit 12/27/2016 [place] Isabella Sandra I50.30 Unspecified 2:44p Cardiology Kathy Gomez diastolic (congestive) heart failure Office Visit 12/26/2016 [place] Kayla Singh, I11.0 Hypertensive heart 8:31a Cardiology Jewels M.Guy disease with heart Food Service Tray Attendant failure I50.9 Heart failure, unspecified I45.10 Unspecified right bundle-branch block J90 Pleural effusion, not elsewhere classified Office Visit 12/26/2016 2:03p [facility] Ratna R06.02 Shortness of Assoc,mayi Nj D.O. breath Hospitalists I50.31 Acute diastolic (congestive) heart failure I10 Essential (primary) hypertension Office Visit 12/25/2016 [facility] Marry Winston R06.02 Shortness of 2:02p Assoc,mayi Samano, TAPE DUPLICATOR breath Hospitalists I50.9 Heart failure, unspecified Z87.39 Personal history of diseases of the ms sys and conn tiss I10 Essential (primary) hypertension Office Visit 07/23/2016 [facility] R07.9 Chest pain, 1:16p Assoc,mayi Arriaga, TAPE DUPLICATOR unspecified Hospitalists I10 Essential (primary) hypertension Z78.9 Other specified health status Office Visit 08/17/2015 3:00p Neurosurgery Wyatt Mims 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 at [place] [facility] AT [facility]10/10/2018 10:40 am - Kayla Singh M.D. at [place] [facility] AT [facility]09/22/2018 11:00 am - Monica Tran MD at Pulmonology [facility]10/20/2018 9:00 am - Monica Tran MD at Pulmonology [facility] Of [facility]09/05/2018 - Kayla Singh M.D.R06.02 Shortness of oqhtofS19.5 Other restrictive cardiomyopathyNew Orders: Echocardiogram, Ordered: 09/05/18E83.119 Hemochromatosis, [id number] Chronic diastolic (congestive) heart failureNew Orders:Echocardiogram, Ordered: 09/05/18Comments:Entresto is for systolic CHF, you don't don't qualify.J90 Pleural effusion, not elsewhere [id number] Nonrheumatic aortic (valve) stenosisNew Orders:Echocardiogram, Ordered: 09/05/18Follow up:Echo Aug or September for Francisco to read. OV after echo with
--- NOTE | 2018-09-21 13:05 | ED ---
Complex/Multi-Sys Presentation - HPI Summary HPI Summary: This patient is a 73 year old M presenting to [facility] [place] accompanied by with a chief complaint increased fatigue for the past few days. Patient states that he has only been able to sleep for a few hours at a time with his CPAP machine before he wakes with SOB and goes to sleep in his recliner for the rest of the night. reports BP of 80/60 at home. He denies current CP. Denies history of atrial flutter and A-fib. Denies current blood thinner use. reports patient was seen by Dr. Singh two weeks ago for routine follow up. PMHx includes CHF, hemochromatosis, and HTN. Medication list reviewed. - History Of Current Complaint Chief Complaint: EDWeakness Time Seen by Provider: 09/21/18 12:40 Hx Obtained From: Patient Onset/Duration: Lasting Days Timing: Constant Location: Negative Associated Signs And Symptoms: Positive: SOB Related History: Recent Illness - CHF - Allergies/Home Medications Allergies/Adverse Reactions: Allergies Allergy/AdvReac Type Severity Reaction Status Date / Time codeine Allergy Nausea And Verified 09/21/18 13:00 Vomiting nitroglycerin Allergy Rash Verified 09/20/17 12:19 [From Nitro-Dur] Penicillins Allergy Swelling Verified 09/21/18 13:00 Home Medications: Home Medications Allopurinol 200 mg PO DAILY 09/21/18 [History Confirmed 09/21/18] Atenolol 25 mg PO DAILY 09/21/18 [History Confirmed 09/21/18] Spironolactone 50 mg PO DAILY 09/21/18 [History Confirmed 09/21/18] PMH/Surg Hx/FS Hx/Imm Hx Endocrine/Hematology History: Denies: Hx Diabetes Cardiovascular History: Reports: Hx Angina - mid chest, Hx Congestive Heart Failure - 1 week ago, Hx Hypertension - MEDICATED Denies: Other Cardiovascular Problems/Disorders Respiratory History: Denies: Other Respiratory Problems/Disorders GI History: Denies: Hx Gall Bladder Disease, Other GI Disorders History: Reports: Hx Kidney Stones - right sided Denies: Hx Renal Disease, Other Problems/Disorders Musculoskeletal History: Reports: Hx Arthritis - back, Hx Bursitis, Other Musculoskeletal History - GOUT Sensory History: Reports: Hx Contacts or Glasses - GLASSES Denies: Hx Hearing Aid Opthamlomology History: Reports: Hx Contacts or Glasses - GLASSES - Cancer History Cancer Type, Location and Year: Melanoma- removed ~10-15 years ago - Surgical History Surgery Procedure, Year, and Place: APPENDECTOMY [facility]. TONSILLECTOMY [facility]. TENDON REPAIR LEFT HAND [facility]. L4-5 FUSION 09/13/2015 Hx Anesthesia Reactions: No Infectious Disease History: No Infectious Disease History: Denies: Traveled Outside the [place] in Last 30 Days - Family History Family History: No FHx of malignant hyperthermia or anesthesia reaction. - Social History Lives: With Family Alcohol Use: Daily Alcohol Amount: 4-5 BEERS a day, 2 glasses SCOTCH, 2 glasses of wine Substance Use Type: Reports: Other Substance Use Comment - Amount & Last Used: CHEWS TOBACCO DAILY Hx Tobacco Use: Yes Smoking Status (MU): Former Smoker Amount Used/How Often: 2 PPD Length of Time of Smoking/Using Tobacco: 40 YEARS Have You Smoked in the Last Year: No Review of Systems Positive: Fatigue Negative: Chest Pain Positive: Shortness Of Breath All Other Systems Reviewed And Are Negative: Yes Physical Exam - Summary Physical Exam Summary: Appearance: The patient is well-nourished in no acute distress and in no acute pain. Skin: The skin is warm and dry and skin color reflects adequate perfusion. HEENT: The head is normocephalic and atraumatic. The pupils are equal and reactive. The conjunctivae are clear and without drainage. Nares are patent and without drainage. Mouth reveals moist mucous membranes and the throat is without erythema and exudate. The external ears are intact. The ear canals are patent and without drainage. The tympanic membranes are intact. Neck: The neck is supple with full range of motion and non-tender. There are no carotid bruits. There is no neck vein distension. Respiratory: Chest is non-tender. Lungs have Crackles at base on right worse than left Cardiovascular: Heart is tachycardic and irregularly irregular. There is no murmur or rub auscultated. There is no peripheral edema and pulses are symmetrical and equal. Abdomen: The abdomen is soft and non-tender. There are normal bowel sounds heard in all four quadrants and there is no organomegaly palpated. Musculoskeletal: There is no back tenderness noted. Extremities are non-tender with full range of motion. There is good capillary refill. There is no peripheral edema or calf tenderness elicited. Neurological: Patient is alert and oriented to person, place and time. The patient has symmetrical motor strength in all four extremities. Cranial nerves are grossly intact. Deep tendon reflexes are symmetrical and equal in all four extremities. Psychiatric: The patient has an appropriate affect and does not exhibit any anxiety or depression. Triage Information Reviewed: Yes Vital Signs On Initial Exam: Initial Vitals Temp Pulse Resp BP Pulse Ox 96.3 F 90 18 92/70 94 09/21/18 12:28 09/21/18 12:28 09/21/18 12:28 09/21/18 12:28 09/21/18 12:28 Vital Signs Reviewed: Yes Diagnostics - Vital Signs Vital Signs Temp Pulse Resp BP Pulse Ox 09/21/18 12:28 96.3 F 90 18 92/70 94 - Laboratory Result Diagrams: 09/22/18 06:00 09/22/18 06:00 Lab Statement: Any lab studies that have been ordered have been reviewed, and results considered in the medical decision making process. - Radiology CXR Radiology Interpretation Completed By: Radiologist Summary of Radiographic Findings: LEFT BASILAR INFILTRATE AND BILATERAL PLEURAL EFFUSIONS, UNCHANGED. ED Physician has reviewed this report. - EKG 1234 Cardiac Rate: Tachycardia - 112 EKG Rhythm: Atrial Flutter Summary of EKG Findings: Atrial Flutter with RVR Complex Multi-Symp Course/Dx Course Of Treatment: Mr. Hartman presented to the emergency department with fatigue and palpitations for a couple of days. He was immediately placed on monitor and found to be in atrial fibrillation/flutter with a mildly increased ventricular rate. EKG was obtained and confirmed that diagnosis. Labs were drawn, an IV initiated and the patient was given a bolus of Cardizem and started on a drip when he began to increase his ventricular response up into the 130s.. His pressure was low when he presented and improved a little bit when his rate was controlled. He was also given IV fluids although he was found to be in mild congestive heart failure. Was my judgment that his blood pressure took priority. The hospitalist service was contacted for admission and his initial troponin came back mildly elevated as was his BNP in the 600s. He also has some congestive heart failure which has recently been attributed to hemochromatosis. He has been working with Dr. Singh for a couple of years because of the congestive heart failure and it has been in good control. - Diagnoses Provider Diagnoses: Atrial flutter with rapid ventricular response, CHF (congestive heart failure) - Physician Notifications Discussed Care Of Patient With: Lyssa Wilson - hospitalist Time Discussed With Above Provider: 14:20 Instructed by Provider To: Admit As Inpatient - Critical Care Time Critical Care Time: 30-74 min Discharge - Sign-Out/Discharge Documenting (check all that apply): Patient Departure - admit - Discharge Plan Condition: Stable Disposition: ADMITTED TO [facility] - Billing Disposition and Condition Condition: STABLE Disposition: Admitted to [facility] - Attestation Statements Document Initiated by Scribe: Yes Documenting Scribe: Holli Calero Provider For Whom Scribe is Documenting (Include Credential): Trevor Johnson MD Scribe Attestation: IHolli, scribed for Trevor Johnson MD on 09/22/18 at 1356. Scribe Documentation Reviewed: Yes Provider Attestation: The documentation as recorded by the Holli pineda accurately reflects the service I personally performed and the decisions made by me, Trevor Johnson MD Status of Scribe Document: Viewed
[2018-09-21 13:20] LABS: ABS Basophils 0 10^3/ul (0-0.2); ABS Eosinophils 0 10^3/ul (0-0.6); ABS Lymphocytes 0.6 10^3/ul (1.0-4.8); ABS Nucleated RBC 0 10^3/ul; Eosinophil % 0.2 %; Hematocrit 47 % (42-52); Hemoglobin 15.4 g/dl (14.0-18.0); Mean Corpuscular HGB Conc 33 g/dl (31-36); Mean Corpuscular Hemoglobin 33 pg (27-31); Mean Corpuscular Volume 101 fL (80-94); Mean Platelet Volume 9.8 fL (7.4-10.4); Nucleated Red Blood Cells % 0; Platelet Count 196 10^3/ul (150-450); Red Blood Count 4.65 10^6/ul (4.00-5.40); Red Cell Distribution Width 21 % (10.5-15); White Blood Count 11.7 10^3/ul (3.5-10.8)
[2018-09-21 13:23] LABS: INR 1.02 (0.77-1.02)
[2018-09-21] MEDS ORDERED: Diltiazem IV* 5 MG/ML 5 ML VIAL (for loading dose/IV Push) (25 MG) IV SLOW PU ONE (13:27)
[2018-09-21] MEDS ORDERED: Diltiazem DRIP* 100 MG/100 ML ADDV.BAG IVPB ONE (13:27)
[2018-09-21 13:35] LABS: Albumin/Globulin Ratio 1.4 (1-3); BUN/Creatinine Ratio 27.7 (8-20); Calcium 9.8 mg/dL (8.6-10.3); EGFR African American 53.3 (>60); Globulin 2.8 g/dL (2-4); Magnesium 2.3 mg/dL (1.9-2.7); Potassium 4.6 mmol/L (3.5-5.0); Total Bilirubin 1.1 mg/dL (0.2-1.0); Total Protein 6.8 g/dL (6.4-8.9)
[2018-09-21 13:42] LABS: Troponin I 0.07 ng/mL (<0.04)
[2018-09-21] MEDS ORDERED: Diltiazem IV VIAL* 125 MG in NS 0.9% 100 ML* 100 ML IV ONE (13:45)
[2018-09-21 13:58] LABS: TSH (Thyroid Stimulating Horm) 2.82 mcIU/mL (0.34-5.60)
[2018-09-21] MEDS ORDERED: Levofloxacin 750 MG IVPREMIX(* 750 MG/150 ML BAG IVPB ONE (14:04)
[2018-09-21] MEDS ORDERED: NS 0.9% 1000 ML** 1,000 ML IV ONE (14:04)
[2018-09-21 14:57] LABS: C Reactive Protein 13.77 mg/L (<8.01)
[2018-09-21] MEDS ORDERED: NS 0.9% 250 ML* 250 ML IV ONE (15:15)
[2018-09-21] MEDS ORDERED: NS 0.9% 1000 ML** 1,000 ML IV SCH (15:30)
[2018-09-21] MEDS ORDERED: Acetaminophen TAB* 325 MG PO PRN (15:37)
[2018-09-21] MEDS ORDERED: Digoxin IV* 0.5 MG/2 ML AMP (0.25 MG/ML) IV SLOW PU ONE (15:47)
[2018-09-21] MEDS ORDERED: Rivaroxaban TAB(*) 20 MG TAB PO SCH (16:00)
[2018-09-21] MEDS ORDERED: Apixaban* 5 MG TAB PO ONE (17:00)
--- NOTE | 2018-09-21 18:50 | HP ---
HISTORY AND PHYSICAL: ADDENDUM: ASSESSMENT AND PLAN: In regards to the patient's possible infiltrate in the left lung, the patient's chest x-ray is read that is unchanged from 08/27/18 and the chest x-ray from August was unchanged from February 2018 chest x-ray. The patient has chronic bilateral pleural effusions, left more than right, and chronic atelectasis at the left lung base. He has no symptoms of pneumonia, his C-reactive protein is only mildly elevated, and I suspect his leukocytosis is likely due to his stress due to atrial fibrillation and CHF and not sepsis. He did receive a dose of Levaquin in the emergency department, which I am not going to continue. I do not believe the patient has pneumonia at this point. [id number]/[facility] #: [id number] MTDD
--- NOTE | 2018-09-21 18:58 | HP ---
ADDENDUM NOW INCLUDED ON THIS REPORT CC: Dr. Gomes; Dr. Tran; Dr. Singh; Dr. Holcomb; Dr. Mattson * HISTORY AND PHYSICAL: DATE OF ADMISSION: 09/21/18 PRIMARY CARE PROVIDER: Dr. Gomes. CHIEF COMPLAINT: Feeling tired, short of breath at night. HISTORY OF PRESENT ILLNESS: Carlos Alberto Hartman is a 73-year-old male with history of hemochromatosis and restrictive diastolic CHF due to that, who presented to the hospital complaining of shortness of breath when he tries to sleep and fatigue for the past several days. The patient was noted to be in atrial flutter with rapid ventricular response and heart rate in the 130s. He received 25 mg of IV diltiazem bolus and his pressures are currently in the 80s , his heart rate is in the 60s. The patient had symptoms of dizziness when rolling in the hospital bed now. He denies any chest pain. He stated that usually his breathing is fine apart from than when he tries to fall asleep or waking up. He uses CPAP nightly. He had been on torsemide for bilateral lower extremity edema and congestive heart failure for the past several months and his leg edema improved and resolved. He is going to be admitted to the intensive care unit due to hypotension and atrial flutter. PAST MEDICAL HISTORY: 1. 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 2. Hemochromatosis. The patient is having phlebotomies under direction of Dr. Holcomb in the oncology office. 3. History of kidney stones in 2017 when incidentally he was found to be noted on the CAT scan to have bilateral pleural effusions and that prompted the investigation for congestive heart failure. 4. History of chronic left-sided pleural effusion, status post thoracentesis on 06/10/17. 5. History of pericardial thickening, noted on cardiac MRI in the past. 6. History of cor pulmonale. 7. Back pain. 8. Gout. 9. Right posterior thorax melanoma resection. 10. Obstructive sleep apnea, moderate, on CPAP. PAST SURGICAL HISTORY: 1. Status post appendectomy. 2. Finger tendon repair in the past. 3. History of ganglion repair. 4. History of lumbar laminectomy. 5. History of melanoma resection. 6. Tonsillectomy. CURRENT MEDICATIONS: Include: 1. Prednisone recently increased by Dr. Tran at 10 mg daily. The patient is unsure why he is taking it. He stated that he is taking it for his "lung disease," but he is not aware of asthma or COPD. 2. CPAP. 3. Torsemide 10 mg daily. 4. Aldactone 50 mg daily. 5. Atenolol 25 mg daily. ALLERGIES: CODEINE, NITROGLYCERIN, and PENICILLINS. FAMILY HISTORY: Positive for father with history of heart disease who in his 70s secondary to heart disease. Mother, history of diabetes. SOCIAL HISTORY: The patient has history of 4-pack per day smoking for over 30 years and he quit over 30 years ago. He denies any tobacco or alcohol use. He is retired and lives with his , Griselda, who used to work at [employer]. REVIEW OF SYSTEMS: Please see history of present illness. All the remaining 12 systems were reviewed with the patient and were otherwise negative. PHYSICAL EXAMINATION GENERAL: The patient is a pleasant 73-year-old male, who is in no acute distress. Alert, awake, and oriented x3. VITAL SIGNS: Blood pressure of 83/66, heart rate of 70 and regular, respiratory rate 25, oxygen saturation 99% on 2 L of oxygen via nasal cannula, temperature of 96.3. HEENT: Head: Atraumatic, normocephalic. Eyes: Pupils are equal, reactive to light and accommodation. Oropharynx is clear. Mucosa moist. NECK: Supple. No JVD. No bruits bilaterally. RESPIRATORY: Crackles at left lung base, otherwise clear. CARDIOVASCULAR: Regular rate and rhythm. No murmur. ABDOMEN: Soft, nontender. Bowel sounds are present in all 4 quadrants. EXTREMITIES: There is no edema. Pulses are +2 bilaterally. No clubbing or cyanosis. NEUROLOGIC: Speech is clear. Cranial nerves II through XII grossly intact. Motor strength is 5/5 bilaterally. DIAGNOSTIC STUDIES/LAB DATA: Showed white blood cell count of 11.7, hemoglobin of 15.4, hematocrit of 47, MCV of 101, and platelets of 196. Sodium of 132, potassium 4.6, chloride 100, carbon dioxide 23, BUN 43, creatinine 1.55. Liver function tests showed bilirubin of 1.1 and alkaline phosphatase of 120, otherwise ALT was unremarkable at 22. C-reactive protein was 13.7. Troponin was 0.07, brain natriuretic peptide was 665. TSH was 2.8. The patient's portable chest x-ray reviewed by myself and read by the radiologist as "left basilar infiltrate and bilateral pleural effusions unchanged comparing with 08/27/17." Please note that on 08/27/17, chest x-ray was read by the radiologist as "persistent left larger than right pleural effusions with proportional compressive atelectasis". The patient is currently on telemetry monitoring and showed atrial flutter with a heart rate in the 70s. ASSESSMENT AND PLAN: 1. New-onset atrial flutter. Currently, the patient is in rate control, but that he dropped his pressures. When evaluating the patient's volume status, his mucous membranes appear mildly dry. He also has elevated BUN and creatinine. I suspect the patient is slightly over diuresed. I will place the patient on gentle intravenous hydration overnight and hold his diuretics. 2. In regards to the patient's atrial flutter. His magnesium and potassium are within normal limits as well as TSH. I suspect this is due to his restrictive cardiomyopathy and may be in combination with dehydration. I spoke with Dr. Mattson about it. The patient is going to be scheduled for VARUN and cardioversion. For the time being, due to his hypotension, he is going to be observed in the intensive care unit. He is going to be treated with 1 dose of digoxin IV at 0.5 mg. If his heart rate increases above 110, we will treat it with either treatment with Cardizem or esmolol drip. At this point, we will continue observing. The patient's atenolol he missed tonight and unfortunately I will not be able to administer it due to low systolic blood pressures, but I will place it for the future with hold parameters. 3. In regards to the patient's congestive heart failure, which is chronic and diastolic with EF of 65%. At this point, once again, the patient appears to be slightly over diuresed. We will place the patient on daily weights and hold his diuretics. 4. The patient has hemochromatosis, which is under treatment with Dr. Holcomb as an outpatient. 5. For DVT prophylaxis as well as for his new-onset atrial flutter, the patient is going to be placed on Eliquis. He does have renal insufficiency, but otherwise he is still qualifying for the regular dose at 5 mg b.i.d. 6. The patient's code status is full and his surrogate is his . 7. The patient is not aware why he is taking prednisone. It was prescribed by Dr. Tran and from Dr. Tran's note, it is not clearly evident if he is taking it for reactive airway disease. Nevertheless, we will continue prednisone at current dose TIME SPENT: Approximately 65 minutes was spent on admission of this patient, more than half that time was spent [id number] with the patient during the interview and physical exam. ADDENDUM: ASSESSMENT AND PLAN: In regards to the patient's possible infiltrate in the left lung, the patient's chest x-ray is read that is unchanged from 08/27/18 and the chest x-ray from August was unchanged from February 2018 chest x-ray. The patient has chronic bilateral pleural effusions, left more than right, and chronic atelectasis at the left lung base. He has no symptoms of pneumonia, his C-reactive protein is only mildly elevated, and I suspect his leukocytosis is likely due to his stress due to atrial fibrillation and CHF and not sepsis. He did receive a dose of Levaquin in the emergency department, which I am not going to continue. I do not believe the patient has pneumonia at this point. [id number]/[facility] #: [id number]/[facility] #: [id number] [facility]
[2018-09-21] MEDS: Docusate CAP* 100 MG PO SCH (22:35)
[2018-09-22 06:15] LABS: ABS Basophils 0 10^3/ul (0-0.2); ABS Eosinophils 0 10^3/ul (0-0.6); ABS Monocytes 0.7 10^3/ul (0-0.8); ABS Neutrophils 6.2 10^3/ul (1.5-7.7); ABS Nucleated RBC 0 10^3/ul; Eosinophil % 0.6 %; Hematocrit 42 % (42-52); Hemoglobin 13.8 g/dl (14.0-18.0); Lymphocyte % 12.6 %; Mean Corpuscular HGB Conc 33 g/dl (31-36); Mean Corpuscular Hemoglobin 34 pg (27-31); Mean Corpuscular Volume 102 fL (80-94); Mean Platelet Volume 9.7 fL (7.4-10.4); Nucleated Red Blood Cells % 0; Platelet Count 147 10^3/ul (150-450); Red Cell Distribution Width 21 % (10.5-15)
[2018-09-22] MEDS: Apixaban* 5 MG TAB PO SCH ×2 (06:18→17:40)
[2018-09-22 06:32] LABS: BUN/Creatinine Ratio 34.5 (8-20); Calcium 9.2 mg/dL (8.6-10.3); EGFR Non-African American 48.7 (>60); Potassium 4.2 mmol/L (3.5-5.0)
[2018-09-22] MEDS ORDERED: Digoxin IV* 0.5 MG/2 ML AMP (0.25 MG/ML) IV SLOW PU ONE (07:43)
[2018-09-22] MEDS: Atenolol TAB* 25 MG PO SCH (07:53)
[2018-09-22] MEDS ORDERED: NS 0.9% 250 ML* 250 ML IV ONE (07:54)
--- NOTE | 2018-09-22 08:00 | PN ---
Subjective Date of Service: 09/22/18 Interval History: Pt feels well. not on 02. Night was "OK", used his own CPAP. HR 100-120. SBP's 88-90's, but two measurement of <80 this AM. Denies CP, SOB, dizziness Objective Active Medications: Acetaminophen (Tylenol Tab*) 650 mg PO Q4H PRN PRN Reason: FEVER/PAIN Allopurinol (Zyloprim Tab*) 200 mg PO DAILY [facility] Apixaban (Eliquis*) 5 mg PO 0600,1800 [facility] Last Admin: 09/22/18 06:18 Dose: 5 mg Atenolol (Tenormin Tab*) 25 mg PO DAILY [facility] Last Admin: 09/22/18 07:53 Dose: Not Given Docusate Sodium (Colace Cap*) 100 mg PO BID [facility] Last Admin: 09/21/18 22:35 Dose: Not Given Sodium Chloride (Ns 0.9% 1000 Ml) 1,000 mls @ 50 mls/hr IV .PER RATE [facility] Last Admin: 09/21/18 16:15 Dose: 50 mls/hr Prednisone (Deltasone Tab*) 10 mg PO DAILY [facility] Vital Signs - 8 hr 09/22/18 09/22/18 09/22/18 00:00 00:01 00:15 Temperature Pulse Rate 72 72 73 Respiratory 28 26 26 Rate Blood Pressure 101/74 96/68 (mmHg) O2 Sat by Pulse 95 95 96 Oximetry 09/22/18 09/22/18 09/22/18 00:30 00:45 01:00 Temperature Pulse Rate 91 81 92 Respiratory 27 22 15 Rate Blood Pressure 89/68 84/64 (mmHg) O2 Sat by Pulse 95 96 96 Oximetry 09/22/18 09/22/18 09/22/18 01:01 01:16 01:30 Temperature Pulse Rate 105 113 104 Respiratory 21 22 25 Rate Blood Pressure 92/65 82/48 90/65 (mmHg) O2 Sat by Pulse 95 96 95 Oximetry 09/22/18 09/22/18 09/22/18 01:46 02:00 02:01 Temperature Pulse Rate 117 62 68 Respiratory 19 14 15 Rate Blood Pressure 83/64 85/62 (mmHg) O2 Sat by Pulse 96 96 96 Oximetry 09/22/18 09/22/18 09/22/18 02:16 02:32 02:46 Temperature Pulse Rate 122 76 67 Respiratory 18 17 12 Rate Blood Pressure 88/74 86/51 86/59 (mmHg) O2 Sat by Pulse 99 96 97 Oximetry 09/22/18 09/22/18 09/22/18 03:00 03:04 03:16 Temperature 98.2 F Pulse Rate 67 69 104 Respiratory 9 12 22 Rate Blood Pressure 91/59 104/50 (mmHg) O2 Sat by Pulse 97 97 96 Oximetry 09/22/18 09/22/18 09/22/18 03:31 03:45 04:00 Temperature Pulse Rate 109 69 60 Respiratory 19 10 22 Rate Blood Pressure 89/72 95/76 (mmHg) O2 Sat by Pulse 98 97 97 Oximetry 09/22/18 09/22/18 09/22/18 04:01 04:16 04:31 Temperature Pulse Rate 123 87 117 Respiratory 13 26 21 Rate Blood Pressure 93/71 82/70 86/70 (mmHg) O2 Sat by Pulse 96 96 96 Oximetry 09/22/18 09/22/18 09/22/18 04:46 04:50 05:00 Temperature Pulse Rate 120 78 72 Respiratory 25 24 25 Rate Blood Pressure 72/58 95/76 (mmHg) O2 Sat by Pulse 95 95 96 Oximetry 09/22/18 09/22/18 09/22/18 05:01 05:16 05:31 Temperature Pulse Rate 100 100 144 Respiratory 25 16 23 Rate Blood Pressure 93/72 96/69 84/71 (mmHg) O2 Sat by Pulse 96 91 94 Oximetry 09/22/18 09/22/18 09/22/18 05:45 06:00 06:02 Temperature Pulse Rate 102 115 129 Respiratory 22 25 23 Rate Blood Pressure 85/74 81/70 (mmHg) O2 Sat by Pulse 95 95 95 Oximetry 09/22/18 09/22/18 09/22/18 06:16 06:46 07:00 Temperature 98.3 F Pulse Rate 101 90 85 Respiratory 21 21 19 Rate Blood Pressure 93/69 94/59 (mmHg) O2 Sat by Pulse 95 94 94 Oximetry 09/22/18 09/22/18 07:01 07:16 Temperature Pulse Rate 109 75 Respiratory 19 18 Rate Blood Pressure 87/62 78/64 (mmHg) O2 Sat by Pulse 93 94 Oximetry Oxygen Devices in Use Now: None Appearance: 73 yo M in nAD, aAOx3 Eyes: No Scleral Icterus, PERRLA Ears/Nose/Mouth/Throat: NL Teeth, Lips, Gums, Mucous Membranes Moist Neck: NL Appearance and Movements; NL JVP, Trachea Midline Respiratory: Symmetrical Chest Expansion and Respiratory Effort, - - decreased breath sounds at LLL Cardiovascular: - - irregular Abdominal: NL Sounds; No Tenderness; No Distention, No Hepatosplenomegaly Lymphatic: No Cervical Adenopathy Extremities: No Edema, No Clubbing, Cyanosis Skin: No Rash or Ulcers, No Nodules or Sclerosis Neurological: Alert and Oriented x 3, NL Muscle Strength and Tone Result Diagrams: 09/22/18 06:00 09/22/18 06:00 Microbiology and Other Data: Microbiology 09/21/18 17:00 Nasal Screen MRSA (PCR) - Final Nasal Mrsa Not Detected Assess/Plan/Problems-Billing Assessment: 73 yo M with h/o restrictive pattern cardiomyopathy, EF 55%, chronic diastolic cHF, hemochromatosis(intermittent phlebotomies as per DR. Holcomb), lung disease on chronic prednisone(DR. Tran), DANIEL (CPAP) presented with new A. flutter - Patient Problems (1) Atrial flutter with rapid ventricular response Comment: HR up to 120's this aM, and hypotensive. Will bolus with 250 ml NS, increase IVF to 75/H, administer another dose of 0.5 mg of digoxin Coardiology consulted, plan for VARUN, cardioversion today Trop 0.07 peak-likely demand ischemia started on Eliquis at admission (2) Diastolic CHF with preserved left ventricular function, NYHA class 4 Comment: Pt's increased BUN/creat indicates overdiuresis will cont IVF [place] IVF (3) CONSUELO (acute kidney injury) Comment: suspect overdiuresis-cont genlte IVF (pt still had chronic b/l pleural effusions) (4) Hemochromatosis Comment: as per DR. Holcomb -managed outpatient (5) Lung disease Comment: Not clear from medical records what lung disease pt has. He is chronically on Prednisone 10 mg daily as per DR. Tran (6) DVT prophylaxis Comment: Eliquis Status and Disposition: Inpatient
[2018-09-22] MEDS: Allopurinol TAB* 100 MG PO SCH (08:03)
[2018-09-22] MEDS: predniSONE TAB* 10 MG PO SCH (08:03)
[2018-09-22] MEDS: Docusate CAP* 100 MG PO SCH ×2 (08:07→19:36)
[2018-09-22] MEDS: NS 0.9% 1000 ML** 1,000 ML IV SCH ×2 (08:08→19:35)
--- NOTE | 2018-09-22 10:37 | CONS ---
CARDIOLOGY CONSULTATION DATE OF CONSULTATION: 09/22/2018. INDICATION FOR CONSULTATION: Atrial flutter. 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 The patient states that he was at home on , Saturday , and Saturday just feeling poorly, just did not have his normal energy. He denied any anginal type symptoms. He denied any lower extremity edema. He did have some degree of orthopnea as he was getti ng up at 4 o'clock in the morning, just feeling poorly, but was not truly short of breath. The patie nt took his pulse rate and blood pressure. On Saturday, his blood pressure was 80/60, his pulse rate was 90 and appeared to be irregular. The patient was instructed to go to the emergency room. On arr ival to the emergency room, it was noted that the patient was in atrial flutter with a heart rate of 110. The patient was admitted to the hospital. Again, the patient had been feeling quite well up until about five days ago. The patient did see Dr. Singh on September 05 and at that time was actually doing quite well. He was at his baseline on h is usual medications. 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 PAST SURGICAL HISTORY: Appendectomy, tonsils, thoracentesis in September 2017. OUTPATIENT MEDICATIONS: 1. Prednisone 10 mg a day. 2. CPAP machine. 3. Torsemide 20 mg a day. 4. Spironolactone 50 mg a day. 5. Atenolol 25 mg a day. 6. Allopurinol 200 mg a day. ALLERGIES: PENICILLIN AND CODEINE. FAMILY HISTORY: Father had a history of a myocardial infarction. Sister had rheumatic fever. SOCIAL HISTORY: He is . He is a previous smoker. He does occasionally chew tobacco. One to two beers a day. He does not get any regular exercise. Consumes one cup of coffee a day. REVIEW OF SYSTEMS: Negative for fever and chills. Positive for anorexia. Negative for changes in nisha wel or bladder habit. Other 12 point review is unremarkable. PHYSICAL EXAM: Vital Signs: Height 6 feet, weight 204 pounds. Temperature 98.5, heart rate 113, bl ood pressure 82/61, respiratory rate 20, oxygen saturation 95 percent on room air. HEENT: Sclerae a nicteric. Oral pharynx is pink without erythema. Carotids 2+ without bruits. JVD is normal. Thyro id is normal. Cardiac: Distant heart sounds, S1, S2 without any murmurs, rubs, or gallops. Lungs: C lear to auscultation. He does have dullness to percussion in his left base. There is no rales on ex am. Abdomen: Soft, nontender, non distended with normoactive bowel sounds. Extremities: No edema. He has 2+ pulses throughout. Neuro: The patient is awake, alert, and oriented. He moves all four extremities equally. DIAGNOSTIC STUDIES/LAB DATA: CBC within normal limits. Chemistries: Sodium 132, potassium is yanique l, BUN 49, creatinine 1.4 which is higher than his baseline at about 1.1, troponins are minimally tank vated at 0.07, AST and ALT are normal, TSH is normal, BNP is elevated at 665. Chest x-ray shows a small pleural effusion on the left. No obvious infiltrates. The patient's last echocardiogram in December of 2017 shows a normal ejection fraction of 60 percent, mild left ventricular hypertrophy, mild aortic stenosis with a bicuspid aortic valve, moderate TR with mi ld to moderate pulmonary hypertension. The patient did have a cardiac catheterization in 2017 which showed no significant coronary artery di sease. IMPRESSION: This is a 73-year-old gentleman with a history of hemochromatosis and a history of diast olic heart failure who was admitted to the hospital for feeling poorly for a couple of days. He was found to be in atrial flutter. The atrial flutter itself could cause his symptoms. Currently, the patient is started on Eliquis. He was started on Digoxin for heart rate control. RECOMMENDATIONS: Given the fact that this laboratory studies are all within normal limits, my recomm endation is that the patient undergo transesophageal echocardiogram and cardioversion back to normal rhythm. The question is whether he should be started on an anti-arrhythmic medication. I will discuss this w ith Dr. Singh. Given his history of hemochromatosis and liver involvement, the question is whether Amiodarone is an appropriate medication. Perhaps the patient would be best tolerated with just Propa fenone to see if it can control his atrial flutter. Further recommendations after his VARUN and cardioversion. [id number]/[facility] #: [id number]
[2018-09-22] MEDS ORDERED: Naloxone* 0.4 MG/ML 1 ML VIAL ONE (14:08)
[2018-09-22] MEDS ORDERED: Lidocaine 2% VISCOUS* 15 ML UDC ONE (14:08)
[2018-09-22] MEDS ORDERED: Flumazenil* 0.1 MG/ML 5 ML MDV ONE (14:08)
[2018-09-22] MEDS ORDERED: Midazolam* 1 MG/ML 10 ML VIAL (10 MG) ONE (14:08)
[2018-09-22] MEDS ORDERED: fentaNYL* 50 MCG/ML 2 ML VIAL (100 MCG VIAL) ONE (14:08)
--- NOTE | 2018-09-22 17:17 | TEE ---
Patient: KOMAL BUSH [facility] Rec#: [id number] : 1945 Date: 09/22/2018 Age: 73y Height: 183 cm / 72.0 in Weight: 97.5 kg / 214.9 lbs Sex: M BSA: 2.2 Room#: ICU1 Admit Date#: 09/21/2018 Type: Inpatient Referring: Lyssa Wilson MD Performing: Dereck Majano MD Reading: Dereck Majano MD Caramel Cutter Helper: Tiara Lindsay RN RDCS Nurse: Vida Pool Nurse: Jacob Clark RN CC: Kayla Singh MD CC: Geraldo Gomes Transesophageal Echocardiogram Indication: Atrial flutter BP: 100/64 HR: 130 Rhythm: A-Flutter Findings History: Hemochromatosis, restrictive cardiomyopathy, HTN, cor pulmonale, DANIEL on CPAP, chronic pleural effusions, former smoker. This is a LIMITED exam due to the patient's hypotension and coughing. Technical Comments: The study quality is good. Left Ventricle: The left ventricular chamber size is normal. The estimated ejection fraction is 60-65%. Left Atrium: The left atrium is mild to moderately dilated. No thrombus is visualized within the left atrium. There is no thrombus visualized in the left atrial appendage. Right Ventricle: The right ventricle is not well visualized. Right Atrium: The right atrium is mild to moderately dilated. The bubble study is negative. A patent foramen ovale is not demonstrated by agitated contrast. Mitral Valve: The mitral valve leaflets appear normal. Pericardium: There is no significant pericardial effusion. Venous: The pulmonary veins appear normal. The LUPV was well seen and interrogated with spectral Doppler. VARUN Procedures: The procedure was abbreviated due to the patient's medical condition.A complete exam was not performed due to the patient's hypotension and coughing. History and physical as well as labs were reviewed. The patient was in a fasting state. Risks and benefits of the procedure, including alternatives, were discussed and written informed consent was obtained. The patient and/or their health care inside outside sales representative expressed understanding of the procedure, risks and benefits. Baseline and continuous monitoring of blood pressure, heart rate, pulse oximetry and heart rhythm was performed throughout the procedure. The appropriate time-out procedure was performed as per [facility] protocol. The patient was placed in the left lateral decubitus position. The patient's posterior pharynx was anesthetized with 20ml of 2% viscous lidocaine. The patient received IV Midazolam with a total dose of 4 mg. The patient received IV Fentanyl with a total dose of 50 mcg. An oral bite block was inserted for protection of oral dentition. The multiplane transesophageal echocardiogram probe was inserted through the posterior oropharynx and advanced into the esophagus without difficulty. Multiple 2D images were obtained of the heart and its related structures. Color flow Doppler was used for evaluation. At the conclusion of the procedure the probe was removed with continuous suction without complications. The patient tolerated the procedure with no apparent complications. Contrast: Normal saline was used as contrast for the bubble study. Image 10. Conclusions The procedure was abbreviated due to the patient's medical condition.A complete exam was not performed due to the patient's hypotension and coughing. The estimated ejection fraction is 60-65%. No thrombus is visualized within the left atrium. There is no thrombus visualized in the left atrial appendage. A patent foramen ovale is not demonstrated by agitated contrast. There is no significant pericardial effusion.
--- NOTE | 2018-09-22 20:07 | CARD ---
CC: Dr. Singh * CARDIOVERSION REPORT: DATE OF PROCEDURE: 09/22/18 - ROOM #ICU-01 PROCEDURE: Cardioversion. INDICATION: Atrial flutter. The patient is a 73-year-old gentleman with a history of diastolic heart failure , who was admitted to the hospital with atrial flutter. The patient had just undergone transesophageal echocardiogram, which showed no thrombus in his left atrial appendage. DESCRIPTION OF PROCEDURE: The patient was given an additional 1 mg of Versed. The patient was cardioverted with 150 joules of synchronized biphasic energy. The patient converted to normal sinus rhythm. The patient tolerated the procedure well with no complications. The patient will be discharged on Eliquis 5 mg twice a day and propafenone 225 mg twice a day. The patient will follow up with Dr. Singh. [id number]/[facility] #: [id number] [facility]
[2018-09-22] MEDS: proPAFENone TAB* 150 MG PO SCH (21:03)
[2018-09-23 06:20] LABS: BUN/Creatinine Ratio 33.3 (8-20); Calcium 8.9 mg/dL (8.6-10.3); EGFR African American 80.9 (>60); EGFR Non-African American 66.8 (>60); Potassium 4.4 mmol/L (3.5-5.0)
[2018-09-23] MEDS: Apixaban* 5 MG TAB PO SCH (07:44)
[2018-09-23] MEDS: proPAFENone TAB* 150 MG PO SCH (07:44)
[2018-09-23] MEDS: Allopurinol TAB* 100 MG PO SCH (08:10)
[2018-09-23] MEDS: predniSONE TAB* 10 MG PO SCH (08:10)
[2018-09-23] MEDS: Atenolol TAB* 25 MG PO SCH (08:10)
[2018-09-23] MEDS: Docusate CAP* 100 MG PO SCH (08:17)
[2018-09-23] MEDS ORDERED: Spironolactone TAB* 25 MG PO SCH (09:00)
[2018-09-23] MEDS ORDERED: Torsemide TAB* 20 MG PO SCH (09:00)
[2018-09-23 10:07] VITALS: BP 110/85
--- NOTE | 2018-09-23 10:49 | DS ---
CC: Dr. Gomes; Dr. Tran; Dr. Singh; Dr. Teresa Holcomb; Dr. Mattson; Dr. Majano; Norma Rae NP * DISCHARGE SUMMARY: DATE OF ADMISSION: 09/21/18 DATE OF DISCHARGE: 09/23/18 PRIMARY CARE PROVIDER: Dr. Gomes. DISCHARGE DIAGNOSES: 1. Atrial flutter with rapid ventricular response, status post cardioversion performed by Dr. Majano on 09/22/18. 2. Acute kidney injury, likely due to overdiuresis. SECONDARY DIAGNOSES: 1. History of restrictive cardiomyopathy with ejection fraction noted to be 65 % with mild left ventricular hypertrophy, moderate tricuspid regurgitation. The restrictive cardiomyopathy was thought to be due to hemochromatosis. 2. History of hemochromatosis, under the care of Dr. Holcomb. 3. History of kidney stones in 2017. 4. History of chronic left-sided pleural effusion, status post thoracentesis in 2017. 5. History of pericardial thickening noted on cardiac MRI in the past. 6. History of cor pulmonale. 7. Back pain. 8. Gout. 9. History of melanoma resection in the past. 10. Obstructive sleep apnea, moderate, on CPAP. MEDICATIONS AT DISCHARGE: New medications include: 1. Propafenone 150 mg 3 times a day. 2. Eliquis 5 mg p.o. b.i.d. Remaining medications are unchanged and include: 1. Torsemide 10 mg daily. 2. Aldactone 50 mg daily. 3. Prednisone 10 mg daily. 4. Atenolol 25 mg daily. 5. Allopurinol 200 mg daily. LABORATORY DATA AND STUDIES PERFORMED DURING THE HOSPITAL STAY: Included: On , white blood cell count of 8.0, hemoglobin of 13.8, hematocrit of 42, MCV of 102, and platelets of 147. On 09/23/18, sodium of 132, potassium 4.4, chloride 104, carbon dioxide 21, BUN 36, creatinine 1.08. Patient's brain natriuretic peptide was obtained at admission and was 665. Troponin was 0.07 to 0.05 throughout the hospital stay. Procedures performed included transesophageal echocardiogram and cardioversion performed by Dr. Majano on 09/22/18. Conclusions: "This procedure was abbreviated due to the patient's medical condition. A complete exam was not performed due to the patient's hypotension and coughing. The estimated ejection fraction was 60% to 65%. No thrombus was visualized within the left atrium. There was no thrombus visualized in the left atrial appendage. Patent foramen ovale is not demonstrated by agitated contrast. There was no significant pericardial effusion." CONSULTATIONS DURING THE HOSPITAL STAY: Included Dr. Majano for cardiology. HOSPITALIZATION COURSE: Carlos Alberto Hartman is a 73-year-old male with a history of hemochromatosis and restrictive cardiomyopathy likely due to hemochromatosis who has chronic small bilateral pleural effusions, more on the left, and chronic diastolic CHF, who presented to the hospital complaining of feeling weak. He was hypotensive with a heart rate in the 130s and in atrial flutter. The atrial flutter was not new to the patient. By that time, his symptoms had been ongoing for several days. Patient was admitted to the intensive care unit. Initially, he received a bolus dose of Cardizem, which treated his heart rate that was at that point down to the 70s, but also his systolic pressures were lower. Overnight, in the intensive care unit, patient was treated with intravenous fluids. His diuretics were held. His systolic pressures were in the 90s and his heart rate was in the 110s. Despite treating with digoxin, he did not convert to sinus rhythm and other antiarrhythmics were of limited use due to relative hypotension. At this point on 09/22/18, Dr. Majano performed VARUN cardioversion and the patient converted to sinus rhythm. Patient was subsequently placed on propafenone 3 times a day for rhythm control. He was started on apixaban at admission. Patient continued to be on intravenous fluids throughout his hospital stay with gentle intravenous hydration. It was noted that he was significantly prerenal at admission with acute kidney injury and creatinine of 1.55. That resolved by the time of discharge with creatinine of 0.8 at discharge. On the day of discharge, patient's diuretics are going to be restarted. He is to follow up with Dr. Gomes in approximately 1 week. Patient also has a scheduled appointment with Dr. Singh in approximately 1 to 2 weeks already. Patient also is following up with Norma Rae from [place] office on an as- needed basis. PHYSICAL EXAM AT TIME OF DISCHARGE: Blood pressure of 106/92, heart rate of 85 and regular, respiratory rate 23, oxygen saturation 97% on room air, temperature 97.9. General: Patient is a pleasant 73-year-old male who is in no acute distress. Awake, alert, and oriented x3. HEENT: Head atraumatic, normocephalic. Eyes: Pupils equal, reactive to light and accommodation. Oropharynx is clear. Mucosa moist. Neck: Supple. No JVD, no bruits bilaterally. Cardiovascular: Regular rate and rhythm. No murmurs. Respiratory: Clear to auscultation bilaterally with slightly decreased breath sounds at left lung base. Abdomen: Soft, nontender. Bowel sounds are present in all 4 quadrants. Lower Extremities: There is trace bilateral pitting edema , right slightly more than left. There is no clubbing or cyanosis. On neuro evaluation, cranial nerves II through XII grossly intact. Motor strength is 5/5 bilaterally. The patient's weight at discharge was reported at 205 pounds. Please also note that the patient's initial chest x-ray obtained on admission showed possibility of left lower lobe infiltrate. Patient's leukocytosis resolved during the hospital stay. Patient did receive a dose of Levaquin in the emergency department that was not continued. DISPOSITION: Discharge to home. The patient's condition is stable. Please note that this is a short summary of the patient's hospitalization. Please refer to further medical records for details. TIME SPENT: Approximately 40 minutes were spent on patient's discharge. [id number]/[facility] #: [id number] MTDD
== END 2018-09-23 10:07 | disposition home or self-care (01) | DRG 309 ==
LOC: ED 12:27 → ICU 15:37
PROVIDERS: ADMIT Internal Medicine; ATTEND Internal Medicine
PROC: B246ZZ4 Ultrasonography of Right and Left Heart, Transesophageal (ICD-10-PCS; 2018-09-22)
PROC: 5A2204Z Restoration of Cardiac Rhythm, Single (ICD-10-PCS; principal; 2018-09-22 14:15)
DX: I48.92 Unspecified atrial flutter (principal); N17.9 Acute kidney failure, unspecified; I50.32 Chronic diastolic (congestive) heart failure; J98.11 Atelectasis; I42.5 Other restrictive cardiomyopathy; I27.20 Pulmonary hypertension, unspecified; I27.81 Cor pulmonale (chronic); J98.4 Other disorders of lung; I36.1 Nonrheumatic tricuspid (valve) insufficiency; I95.9 Hypotension, unspecified; E83.119 Hemochromatosis, unspecified; M54.9 Dorsalgia, unspecified; M10.9 Gout, unspecified; G47.33 Obstructive sleep apnea (adult) (pediatric); D72.829 Elevated white blood cell count, unspecified; Z85.820 Personal history of malignant melanoma of skin; Z79.52 Long term (current) use of systemic steroids; Z79.899 Other long term (current) drug therapy; Z88.5 Allergy status to narcotic agent; Z88.0 Allergy status to penicillin; Z82.49 Family history of ischemic heart disease and other diseases of the circulatory system; Z87.891 Personal history of nicotine dependence; Z88.8 Allergy status to other drugs, medicaments and biological substances
CPT/HCPCS: 36415; 71045; 80048; 80053; 82550; 83605; 83735; 83880; 84443; 84484; 85025; 85610; 86140; 87641; 92960; 93005; 93312; 93325; 99156; 99157; 99285; A9270-GY; J1160; J2250; J2310; J3010; J7512

== ENCOUNTER 2019-07-22 10:26 | Inpatient (IN) | payer MEDICARE ==
--- OUTSIDE RECORDS SUMMARY | 2019-07-22 11:52 | XMS REPORT | Continuity of Care Document ---
:1945 External Reference #:[id number] Author Name Kayla Singh M.D. (transmitted by agent of provider Landy Jones) Address [address] [place] [address] Care Team Providers Name Role Phone Geraldo Gomes MD - Family Care Team Information Electrical Technician Instructor [phone] Medicine Norma Rae FNP - Family Care Team Information Electrical Technician Instructor Teresa Willard MD - Hematology & Care Team Information Electrical Technician Instructor [phone] Oncology Problems Active Problems Provider Date Spinal stenosis of lumbar region Wyatt Mims M.D. Onset: 07/25/2015 Acquired spondylolisthesis Wyatt Mims M.D. Onset: 07/25/2015 Convalescence after surgery Wyatt Mims M.D. Onset: 09/26/2015 Chronic diastolic heart failure Kayla Singh M.D. Onset: 01/15/2017 Preoperative cardiovascular examination Kayla Singh M.D. Onset: 01/15/2017 Cardiomyopathy Kayla Singh M.D. Onset: 06/14/2017 Heart failure, unspecified Kayla Singh M.D. Onset: 07/03/2017 Congenital stenosis of aortic valve Kayla Singh M.D. Onset: 08/06/2017 Pleural effusion, not elsewhere classified Kayla Singh M.D. Onset: 2016 Allergic contact dermatitis due to adhesive Kayla Singh M.D. Onset: 2016 Pulmonary hypertension Kayla Singh M.D. Onset: 09/13/2017 Chronic pulmonary heart disease Kayla Singh M.D. Onset: 09/13/2017 Primary cardiomyopathy Kayla Singh M.D. Onset: 04/04/2018 Aortic valve disorder Kayla Singh M.D. Onset: 09/05/2018 Atrial flutter Kayla Singh M.D. Onset: 09/30/2018 Low back pain Wyatt Mims M.D. Onset: 10/15/2018 Neurogenic claudication Wyatt Mims M.D. Onset: 12/24/2018 Right bundle branch block Kayla Singh M.D. Onset: 05/01/2019 Social History Type Date Description Comments Sex Unknown Tobacco Use Start: Unknown End: Former Cigarette Smoker Unknown Tobacco Use Start: Unknown Chews tobacco ETOH Use Currently consumes Daily 2 beer & alcohol scotch Tobacco Use Start: Unknown End: Patient is a former Unknown smoker Recreational Drug Use Denies Drug Use Tobacco Use Start: Unknown Chews tobbaco Smoking Status Reviewed: 07/20/19 Chews tobbaco Exercise Type/Frequency Exercises rarely light weight lifting Allergies, Adverse Reactions, Alerts Active Allergies Reaction Severity Comments Date Penicillin 07/25/2015 Codeine 07/25/2015 Nitro-Dur Urticaria 09/13/2017 Medications Active Medications SIG Qnty Indications Ordering Date Provider Otezla take as instructed Unknown 04/30/2019 10&20&30mg TBPK Tramadol HCL 1 by mouth every 6 20tabs Wyatt Mims, 10/27/2018 50mg hours as needed M.D. Tablets pain Eliquis 1 by mouth twice a 180tabs Kayla Singh, 09/18/2018 5mg Tablets day M.D. Propafenone HCL taking 1 tablet by 270tabs Kayla Singh, 09/18/2018 150mg mouth three times M.D. Tablets a day Cpap for use while 1units Kayla Singh, 04/04/2018 Device sleeping M.D. Tylenol 2 every 8 hours Unknown 325mg prn Spironolactone 1/2 tablet by 90tabs Kayla Singh, 50mg mouth every other M.D. Tablets day alternating with torsemide Atenolol 1 by mouth every Unknown 25mg Tablets day Allopurinol 2 tabs by mouth Unknown 100mg every day Tablets Torsemide 1 by mouth every Unknown 20mg Tablets other day alternating with aldactone Colchicine 1 cap twice a Unknown 0.6mg daily for 7 days Capsules History Medications Colcrys 1 by mouth every 30tabs Kayla Singh M.D. 06/16/2019 - 0.6mg day twice daily 06/15/2019 Tablets for 7 days Immunizations Description No Information Available Vital Signs Date Vital Result Comment 07/20/2019 1:13pm Height 70 inches 5'10" Weight 194.00 lb with shoes Heart Rate 75 /min BP Systolic Sitting 100 mmHg LA BP Diastolic Sitting 82 mmHg LA BP Systolic Standing 98 mmHg LA BP Diastolic Standing 72 mmHg LA O2 % BldC Oximetry 97 % BMI (Body Mass Index) 27.8 kg/m2 Ejection Fraction 55-60% Echo 10/02/18 06/16/2019 12:09pm Height 70 inches 5'10" Weight 194.00 lb with shoes Heart Rate 72 /min BP Systolic Sitting 98 mmHg lue reg cuff BP Diastolic Sitting 64 mmHg lue reg cuff BP Systolic Standing 100 mmHg lue reg cuff BP Diastolic Standing 62 mmHg lue reg cuff Respiratory Rate 14 /min BMI (Body Mass Index) 27.8 kg/m2 Ejection Fraction 55-60% echo. 10/02/18 Results Test Acquired Date Facility Test Result H/L Range Note Order 07/20/2019 [facility] Echocardiogr <pending> [address] [facility], [place] [address] Study [phone] Comp Metabolic 06/08/2019 [facility] Sodium 136 mmol/L Normal 135-[address] [place] [address] [phone] Potassium 3.8 mmol/L Normal 3.5-5.0 Chloride 98 mmol/L Low 101-111 Co2 Carbon Dioxide 30 mmol/L Normal 22-32 Anion Gap 8 mmol/L Normal 2-11 Glucose 99 mg/dL Normal 70-100 Blood Urea Nitrogen 26 mg/dL High 6-24 Creatinine 1.51 mg/dL High 0.67-1.17 BUN/Creatinine Ratio 17.2 Normal 8-20 Calcium 9.1 mg/dL Normal 8.6-10.3 Total Protein 6.2 g/dL Low 6.4-8.9 Albumin 3.5 g/dL Normal 3.2-5.2 Globulin 2.7 g/dL Normal 2-4 Albumin/Globulin Ratio 1.3 Normal 1-3 Total Bilirubin 1.00 mg/dL Normal 0.2-1.0 Alkaline Phosphatase 220 U/L High 34-104 Alt 12 U/L Normal 7-52 Ast 25 U/L Normal 13-39 Egfr Non- 45.3 >60 Egfr 54.8 >60 1 Laboratory test 06/08/2019 [facility] Magnesium 1.9 mg/dL Normal 1.9-2.7 [address] [place] [address] [phone] Laboratory test 06/08/2019 [facility] B-Type 513 pg/mL High <= 100 [address] [place] [address] Peptide BNP [phone] Comp Metabolic 03/02/2019 [facility] Sodium 137 Normal 135- [address] mmol/[place] [address] [phone] Potassium 4.3 mmol/L Normal 3.5-5.0 Chloride 100 mmol/L Low 101-111 Co2 Carbon Dioxide 27 mmol/L Normal 22-32 Anion Gap 10 mmol/L Normal 2-11 Glucose 128 mg/dL High 70-100 Blood Urea Nitrogen 31 mg/dL High 6-24 Creatinine 1.62 mg/dL High 0.67-1.17 BUN/Creatinine Ratio 19.1 Normal 8-20 Calcium 9.5 mg/dL Normal 8.6-10.3 Total Protein 6.6 g/dL Normal 6.4-8.9 Albumin 3.8 g/dL Normal 3.2-5.2 Globulin 2.8 g/dL Normal 2-4 Albumin/Globulin Ratio 1.4 Normal 1-3 Total Bilirubin 1.20 mg/dL High 0.2-1.0 Alkaline Phosphatase 214 U/L High 34-104 Alt 25 U/L Normal 7-52 Ast 35 U/L Normal 13-39 Egfr Non- 41.9 >60 Egfr 50.7 >60 4 Laboratory test 03/02/2019 [facility] B-Type 443 pg/mL High <= [address] [place] [address] Peptide BNP [phone] 1 Because ethnic data is not always readily [...] 15-29 5 Kidney failure <15 (or dialysis) 2 late may 2019 Copy Result to: JEREMY MATHEWS ([id number]) 3 late May, jun Copy Result to: JEREMY MATHEWS ([id number]) 4 Because ethnic data is not always readily [...] 15-29 5 Kidney failure <15 (or dialysis) Procedures Date Code Description Status 07/20/2019 34086 Echocardiogram, Limited Study Completed 06/23/2019 52156 Destruction ALL Benign Or Premalignant Lesion (Other Than Completed [place] 06/23/2019 94291 Shave Skin Lesion .6-1CM Face/Ear/Eyelid/Nose/Lip/Mucous Completed Membr 06/23/2019 45740 Tangential Biopsy Of Skin, Single Lesion Completed 05/01/2019 49091 EKG Tracing & Interpretation Completed Medical Devices Description No Information Available Encounters Type Date Location Provider Dx Diagnosis Office Visit 06/23/2019 Induction Coordination Engineer Dermatology Yessica Wahl MD L40.0 Psoriasis vulgaris 10:00a L98.9 Disorder of the skin and subcutaneous tissue, unspecified L57.0 Actinic keratosis Office Visit 06/16/2019 12:15p Anitha Singh I50.32 Chronic diastolic Cardiology Of M.DTobin (congestive) heart [facility] failure I48.3 Typical atrial flutter L40.9 Psoriasis, unspecified R05 Cough E83.119 Hemochromatosis, unspecified Office Visit 05/18/2019 1:30p Pulmonology And Monica J90 Pleural effusion, Sleep Services Of MD Marc not elsewhere Induction Coordination Engineer classified Z87.891 Personal history of nicotine dependence Office Visit 05/01/2019 9:00a Anitha Singh I50.32 Chronic diastolic Cardiology Of M.Guy (congestive) heart Induction Coordination Engineer AT [facility] [place] failure I48.3 Typical atrial flutter R60.0 Localized edema I45.10 Unspecified right bundle-branch block Office Visit 04/27/2019 10:45a Pulmonology And Monica J90 Pleural effusion, Sleep Services Of MD Marc not elsewhere Induction Coordination Engineer classified G47.33 Obstructive sleep apnea (adult) (pediatric) Office Visit 04/03/2019 8:40a Anitha Singh I50.32 Chronic diastolic Cardiology Of M.DTobin (congestive) heart Induction Coordination Engineer AT [facility] failure J90 Pleural effusion, not elsewhere classified E83.119 Hemochromatosis, unspecified L40.9 Psoriasis, unspecified I48.3 Typical atrial flutter 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 07/20/2019 J90 Pleural effusion, not elsewhere classified Kayla Singh M.D. 07/20/2019 R18.8 Other ascites Kayla Singh M.D. 07/20/2019 R63.0 Anorexia Kayla Singh M.D. 07/20/2019 R68.81 Early satiety Kayla Singh M.D. 07/20/2019 I50.32 Chronic diastolic (congestive) heart failure Kayla Singh M.D. 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 06/23/2019 L40.0 Psoriasis vulgaris Yessica Wahl MD 06/23/2019 L98.9 Disorder of the skin and subcutaneous tissue, Yessica Wahl MD unspecified 06/23/2019 L57.0 Actinic keratosis Yessica Wahl MD 06/16/2019 I50.32 Chronic diastolic (congestive) heart failure Kayla Singh M.D. 06/16/2019 I48.3 Typical atrial flutter Kayla Singh M.D. 06/16/2019 L40.9 Psoriasis, unspecified Kayla Singh M.D. 06/16/2019 R05 Cough Kayla Singh M.D. 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 05/18/2019 J90 Pleural effusion, not elsewhere classified Monica Tran MD 05/18/2019 Z87.891 Personal history of nicotine dependence Monica Tran MD 05/01/2019 I50.32 Chronic diastolic (congestive) heart failure Kayla Singh M.D. 05/01/2019 I48.3 Typical atrial flutter Kayla Singh M.D. 05/01/2019 R60.0 Localized edema Kayla Singh M.D. 05/01/2019 I45.10 Unspecified right bundle-branch block Kayla Singh M.D. 04/27/2019 J90 Pleural effusion, not elsewhere classified Monica Tran MD 04/27/2019 G47.33 Obstructive sleep apnea (adult) (pediatric) Monica Tran MD 04/03/2019 I50.32 Chronic diastolic (congestive) heart failure Kayla Singh M.D. 04/03/2019 J90 Pleural effusion, not elsewhere classified Kayla Singh M.D. 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 04/03/2019 L40.9 Psoriasis, unspecified Kayla Singh M.D. 04/03/2019 I48.3 Typical atrial flutter Kayla Singh M.D. 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 02/06/2019 I50.32 Chronic diastolic (congestive) heart failure Kayla Singh M.D. 02/06/2019 J90 Pleural effusion, not elsewhere classified Kayla Singh M.D. 02/06/2019 I48.3 Typical atrial flutter Kayla Singh M.D. 02/06/2019 I42.9 Cardiomyopathy, unspecified Kayla Singh M.D. Plan of Treatment Future Appointment(s):07/27/2019 2:30 pm - Flory Ferrara, N.P. at [facility]09/01/2019 10:15 am - Yessica Wahl MD at [facility] Txgafewvzxq89/12/2020 10:00 am - Yessica Wahl MD at [facility] Krqylivkcxa97/10/2020 10:40 am - Kayla Singh M.D. at [facility] AT [facility]08/19/2019 10:30 am - Monica Tran MD at [facility]10/27/2019 10:45 am - Monica Tran MD at [facility]07/20/2019 - Kayla Singh M.D.R05 CoughNew Xrays:CT Abdomen W/Wo, Scheduled: 07/24/19Follow up: [employer] oV next week.J90 Pleural effusion, not elsewhere nmmsphfydbQ13.8 Other ascitesNew Xrays:CT Abdomen W/Wo, Scheduled: 07/24/19R63.0 FgmtaeucE86.81 Early ponxfseL84.32 Chronic diastolic (congestive) heart failureNew Xrays:CT Abdomen W /Wo, Scheduled: 07/24/19Comments:Stay off spironolactone for now.Follow up:Get imaging and labs this week, before Saturday.E83.119 Hemochromatosis, unspecified Functional Status Description No Information Available Mental Status Description No Information Available Referrals Description No Information Available
--- OUTSIDE RECORDS SUMMARY | 2019-07-22 11:53 | XMS REPORT | Continuity of Care Document ---
:1945 External Reference #:[id number] Author Name Kayla Singh M.D. (transmitted by agent of provider Landy Jones) Address [address] [place] [address] Care Team Providers Name Role Phone Geraldo Gomes MD - Family Care Team Information Jewel Sorter Medicine Norma Rae FNP - Family Care Team Information Jewel Sorter Teresa Willard MD - Hematology & Care Team Information Jewel Sorter Oncology Problems Active Problems Provider Date Spinal stenosis of lumbar region Wyatt Mims M.D. Onset: 07/25/2015 Acquired spondylolisthesis Wyatt Mmis M.D. Onset: 07/25/2015 Convalescence after surgery Wyatt [...] Start: Unknown Chews tobbaco Smoking Status Reviewed: 06/16/19 Chews tobbaco Exercise Type/Frequency Exercises rarely light [...] Available Vital Signs Date Vital Result Comment 06/16/2019 12:09pm Height 70 inches 5'10" Weight 194.00 lb with shoes Heart Rate 72 /min BP Systolic Sitting 98 mmHg lue reg cuff BP Diastolic Sitting 64 mmHg lue reg cuff BP Systolic Standing 100 mmHg lue reg cuff BP Diastolic Standing 62 mmHg lue reg cuff Respiratory Rate 14 /min BMI (Body Mass Index) 27.8 kg/m2 Ejection Fraction 55-60% echo. 10/02/18 05/18/2019 1:05pm Height 70 inches 5'10" Weight 193.00 lb Heart Rate 70 /min BP Systolic Sitting 128 mmHg BP Diastolic Sitting 84 mmHg O2 % BldC Oximetry 97 % BMI (Body Mass Index) 27.7 kg/m2 Results Test Acquired Date Facility Test Result H/L Range Note Comp Metabolic 06/08/2019 [facility] Sodium 136 mmol/L Normal 135-145 Panel [address] [place] [address] [phone] Potassium 3.8 mmol/L Normal 3.5-5.0 Chloride 98 [...] Egfr 54.8 >60 1 Laboratory test 06/08/2019 [facility] Magnesium 1.9 mg/dL Normal 1.9-2.7 [address] [place] [address] [phone] Laboratory test 06/08/2019 [facility] B-Type 513 pg/mL High <= 100 [address] [place] [address] Peptide BNP [phone] Comp Metabolic 03/02/2019 [facility] Sodium 137 Normal 135- [address] mmol/[place] [address] [phone] Potassium 4.3 mmol/L Normal 3.5-5.0 Chloride 100 [...] Egfr 50.7 >60 4 Laboratory test 03/02/2019 [facility] B-Type 443 pg/mL High <= [address] [place] [address] Peptide BNP [phone] Basic Metabolic 01/02/2019 [facility] Sodium 134 Low 135-[address] mmol/[place] [address] [phone] Potassium 4.8 mmol/L Normal 3.5-5.0 Chloride 98 mmol/L Low 101-111 Co2 Carbon Dioxide 29 mmol/L Normal 22-32 Anion Gap 7 mmol/L Normal 2-11 Glucose 87 mg/dL Normal 70-100 Blood Urea Nitrogen 27 mg/dL High 6-24 Creatinine 1.43 mg/dL High 0.67-1.17 BUN/Creatinine Ratio 18.9 Normal 8-20 Calcium 9.8 mg/dL Normal 8.6-10.3 Egfr Non- 48.3 >60 Egfr 58.5 >60 5 Laboratory test 01/02/2019 [facility] B-Type 497 pg/mL High <= [address] [place] [address] Peptide BNP [phone] Magnesium 2.3 mg/dL Normal 1.9-2.7 1 Because ethnic data is not always [...] may 2019 Copy Result to: JEREMY MATHEWS ([id number]) 3 late May, jun Copy Result to: JEREMY MATHEWS ([id number]) 4 Because ethnic data is not always [...] 15-29 5 Kidney failure <15 (or dialysis) 5 Because ethnic data is not always readily [...] (or dialysis) Procedures Date Code Description Status 05/01/2019 47310 EKG Tracing & Interpretation Completed 01/02/2019 89682 EKG Tracing & Interpretation Completed Medical Devices Description No Information Available Encounters Type Date Location Provider Dx Diagnosis Office Visit 05/18/2019 Pulmonology And Monica Tran, J90 Pleural effusion, 1:30p Sleep Services Of not elsewhere Radiosonde Operator classified Z87.891 Personal history of nicotine dependence Office Visit 05/01/2019 9:00a Anitha Singh I50.32 Chronic diastolic Cardiology Of Kathy (congestive) heart Radiosonde Operator [place] [facility] [place] I48.3 Typical atrial flutter R60.0 Localized edema I45.10 Unspecified right bundle-branch block Office Visit 04/27/2019 10:45a Pulmonology Miriam Anderson J90 Pleural effusion, Sleep Services Of MD Marc not elsewhere Radiosonde Operator classified G47.33 Obstructive sleep apnea (adult) (pediatric) Office Visit 04/03/2019 8:40a Anitha Singh I50.32 Chronic diastolic Cardiology Of Kathy (congestive) heart Radiosonde Operator [place] [facility] [place] J90 Pleural effusion, not elsewhere classified 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 (congestive) heart Radiosonde Operator [place] [facility] failure J90 Pleural effusion, not elsewhere classified I48.3 Typical atrial flutter I42.9 Cardiomyopathy, unspecified Office Visit 01/07/2019 10:30a Pulmonology And Monica J90 Pleural effusion, Sleep Services Of MD Marc not elsewhere Radiosonde Operator classified G47.33 Obstructive sleep apnea (adult) (pediatric) Office Visit 01/02/2019 8:40a [facility] Kayla Singh I48.3 Typical atrial Of Radiosonde Operator [place] [facility] M.D. flutter I42.9 Cardiomyopathy, unspecified I50.32 Chronic diastolic (congestive) heart failure J90 Pleural effusion, not elsewhere classified Office Visit 12/24/2018 Neurosurgery Wyatt Mims, M48.062 Spinal stenosis, 1:50p Services Of [facility] M.D. lumbar region with neurogenic claudication Assessments Date Code Description Provider 06/16/2019 I50.32 Chronic diastolic (congestive) heart failure [...] 02/06/2019 I42.9 Cardiomyopathy, unspecified Kayla Singh M.D. 01/07/2019 J90 Pleural effusion, not elsewhere classified Monica Tran MD 01/07/2019 G47.33 Obstructive sleep apnea (adult) (pediatric) Monica Tran MD 01/02/2019 I48.3 Typical atrial flutter Kayla Singh M.D. 01/02/2019 I42.9 Cardiomyopathy, unspecified Kayla Singh M.D. 01/02/2019 I50.32 Chronic diastolic (congestive) heart failure Kayla Singh M.D. 01/02/2019 J90 Pleural effusion, not elsewhere classified Kayla Singh M.D. 12/24/2018 M48.062 Spinal stenosis, lumbar region with neurogenic Wyatt Mims M.D. claudication Plan of Treatment Future Appointment(s):08/21/2019 10:40 am - Kayla Singh M.D. at [facility]/19/2019 10:30 am - Monica Tran MD at [facility]10/27/2019 10:45 am - Monica Tran MD at [facility]06/23/2019 10:00 am - Yessica Wahl MD at [facility] Jrpldpjefgc04/05/2019 - Kayla Singh M.D.I50.32 Chronic diastolic ( congestive) heart failureComments:OK to increase torsemide as BP allows and see if cough improved.Has f/u with Dr Mathews, [facility].Follow up:July ( MOB preferreed), oK 8 AMI48.3 Typical atrial flutterComments:Controlled with propafenone and on Eliquis for stroke prevention.L40.9 Psoriasis, unspecifiedComments:Responding to Otezla.R05 CoughComments:History suggestive of non cardiac reasons.E83.119 Hemochromatosis, unspecifiedComments:Follows with Dr Willard. Functional Status Description No Information Available Mental Status Description No Information Available Referrals Refer to Reason for Referral Status Appt Date Jeremy Mathews MD Created [address] [facility] [address] [address] [phone]
--- NOTE | 2019-07-22 14:14 | ED ---
Abdominal Pain/Male - HPI Summary HPI Summary: 74-year-old male with significant past medical history of CHF, atrial flutter, ascites reports to emergency department today complaining of ascites and minor abdominal pain and shortness of breath. Patient states she has had fluid in his abdomen for a long time however in the last 2 days it has gotten much worse. His CHF and ascites is monitored by Dr. Singh and is taking furosemide and spironolactone. He states he woke up this morning and had significant fluid buildup in his abdomen which was causing mild abdominal pain as well as mild shortness of breath when supine. His said she is not given him his spironolactone the last few days because his blood pressures been mildly low. Patient denies alcohol use, occasional drug use, smoking. Patient denies fever, chest pain, rash, pain with urination, increased swelling of the legs and ankles. - History of Current Complaint Chief Complaint: EDAbdPain Stated Complaint: DISTENDED ABDOMEN/PAIN PER Time Seen by Provider: 07/22/19 14:12 Hx Obtained From: Patient Onset/Duration: Gradual Onset Timing: Constant Severity Initially: Moderate Severity Currently: Moderate Pain Intensity: 6 Pain Scale Used: 0-10 Numeric Location: Diffuse Radiates: No Character: Cramping Alleviating Factor(s): Position Associated Signs And Symptoms: Negative: Diaphoresis, Fever, Cough, Back Pain, Constipation, Urinary Symptoms, Decreased Appetite, Nausea, Vomiting, Diarrhea - Allergies/Home Medications Allergies/Adverse Reactions: Allergies Allergy/AdvReac Type Severity Reaction Status Date / Time codeine Allergy Nausea And Verified 12/09/18 09:13 Vomiting nitroglycerin Allergy Rash Verified 12/09/18 09:13 [From Nitro-Dur] Penicillins Allergy Swelling Verified 12/09/18 09:13 Home Medications: Home Medications Apixaban* [Eliquis*] 5 mg PO DAILY 07/22/19 [History Confirmed 07/22/19] Apremilast [Otezla] 30 mg PO BID 07/22/19 [History Confirmed 07/22/19] Torsemide TAB* [Demadex 20 MG*] 40 mg PO DAILY 07/22/19 [History Confirmed 07/22] PMH/Surg Hx/FS Hx/Imm Hx Endocrine/Hematology History: Reports: Hx Anticoagulant Therapy, Other Endocrine /Hematological Disorders - hemochromatosis Denies: Hx Diabetes Cardiovascular History: Reports: Hx Angina - mid chest, Hx Congestive Heart Failure - 1 week ago, Hx Hypertension - MEDICATED, Hx Valvular Heart Disease Denies: Hx Pacemaker/ICD, Other Cardiovascular Problems/Disorders Respiratory History: Denies: Other Respiratory Problems/Disorders GI History: Denies: Hx Gall Bladder Disease, Other GI Disorders History: Reports: Hx Kidney Stones - right sided Denies: Hx Renal Disease, Other Problems/Disorders Musculoskeletal History: Reports: Hx Arthritis - back, Hx Bursitis, Other Musculoskeletal History - GOUT Sensory History: Reports: Hx Contacts or Glasses - GLASSES, Hx Hearing Aid Opthamlomology History: Reports: Hx Contacts or Glasses - GLASSES Psychiatric History: Denies: Hx Panic Disorder - Cancer History Cancer Type, Location and Year: Melanoma- removed ~10-15 years ago - Surgical History Surgery Procedure, Year, and Place: APPENDECTOMY [facility]. TONSILLECTOMY [facility]. TENDON REPAIR LEFT HAND [facility]. L4-5 FUSION 09/13/2015 Hx Anesthesia Reactions: No Infectious Disease History: No Infectious Disease History: Denies: Traveled Outside the [place] in Last 30 Days - Family History Family History: No FHx of malignant hyperthermia or anesthesia reaction. - Social History Alcohol Use: Daily Alcohol Amount: 4-5 BEERS a day, 2 glasses SCOTCH, 2 glasses of wine Substance Use Type: Reports: Other Substance Use Comment - Amount & Last Used: CHEWS TOBACCO DAILY Hx Tobacco Use: Yes Smoking Status (MU): Former Smoker Amount Used/How Often: 2 PPD Length of Time of Smoking/Using Tobacco: 40 YEARS Have You Smoked in the Last Year: No Review of Systems Constitutional: Negative Eyes: Negative ENT: Negative Cardiovascular: Negative Respiratory: Negative Positive: Abdominal Pain. Negative: Vomiting, Diarrhea, Nausea Genitourinary: Negative Musculoskeletal: Negative Skin: Negative Neurological: Negative Psychological: Normal All Other Systems Reviewed And Are Negative: Yes Physical Exam - Summary Physical Exam Summary: Inspection the abdomen reveals no ecchymosis or masses however there is considerable distention. Auscultation reveals normoactive bowel sounds throughout. Palpation reveals no tenderness throughout the abdomen. There is a appreciable fluid wave noted consistent with ascites. 1+ pitting edema of lower extremities bilaterally Triage Information Reviewed: Yes Vital Signs On Initial Exam: Initial Vitals Temp Pulse Resp BP Pulse Ox 97.8 F 81 16 112/76 98 07/22/19 10:36 07/22/19 10:36 07/22/19 10:36 07/22/19 10:36 07/22/19 10:36 Vital Signs Reviewed: Yes Appearance: Positive: Well-Appearing, No Pain Distress, Well-Nourished Skin: Positive: Warm, Skin Color Reflects Adequate Perfusion Eyes: Positive: EOMI, ARMAND ENT: Positive: Hearing grossly normal Respiratory/Lung Sounds: Positive: Clear to Auscultation, Breath Sounds Present Cardiovascular: Positive: RRR, S1, S2 Abdomen Description: Positive: Nontender, Soft. Negative: Distended, Guarding, Peritoneal Signs Bowel Sounds: Positive: Present Musculoskeletal: Positive: Strength/ROM Intact Neurological: Positive: Sensory/Motor Intact, Alert, Oriented to Person Place, Time, Normal Gait, Speech Normal Psychiatric: Positive: Normal AVPU Assessment: Alert Procedures - Sedation Patient Received Moderate/Deep Sedation with Procedure: No Diagnostics - Vital Signs Vital Signs Temp Pulse Resp BP Pulse Ox 07/22/19 12:20 98.8 F 76 14 103/70 98 07/22/19 10:36 97.8 F 81 16 112/76 98 - Laboratory Result Diagrams: 07/22/19 15:35 07/22/19 15:35 Lab Statement: Any lab studies that have been ordered have been reviewed, and results considered in the medical decision making process. Abdominal Pain Male Course/Dx - Course Course Of Treatment: Patient evaluated in the emergency department for ascites. Patient was seen and examined his vitals are stable and he is afebrile. Ultrasound of the abdomen was done which showed evidence of moderate ascites. Labs returned showing no leukocytosis but there is mild anemia with an H&H of 13.9/41, this is his baseline. There are no significant electrolyte abnormalities. BUNs elevated at 26 Total bilirubin elevated at 1.40 and direct bilirubin elevated at 0.50 and alkaline phosphatase 212 which are elevated compared to prior studies. C-reactive protein elevated at 23.66. BNP elevated at 374 which is his baseline. Dr. Singh, his production engineer, was consulted at [address] of the chest abdomen pelvis with and without contrast for investigation as to the cause of his ascites of the new finding. Patient was signed out to Lisa Traylor physician field research assistant. - Diagnoses Differential Diagnosis/HQI/PQRI: Hepatitis, Other - Anasarca, cirrhosis, hepatic failure, renal failure, CHF exacerbation Provider Diagnoses: Ascites Discharge ED - Sign-Out/Discharge Documenting (check all that apply): Sign-Out Patient Signing out patient TO: Lisa Traylor Receiving patient FROM: Yassine Carrion - Discharge Plan Referrals: Geraldo Gomes MD [Primary Care Provider] -
[2019-07-22 15:45] LABS: ABS Eosinophils 0.1 10^3/ul (0-0.6); ABS Lymphocytes 0.5 10^3/ul (1.0-4.8); ABS Monocytes 0.6 10^3/ul (0-0.8); ABS Neutrophils 4.7 10^3/ul (1.5-7.7); Eosinophil % 1.2 %; Hematocrit 41 % (42-52); Hemoglobin 13.9 g/dL (14.0-18.0); Lymphocyte % 7.8 %; Mean Corpuscular HGB Conc 34 g/dL (31-36); Mean Corpuscular Hemoglobin 35 pg (27-31); Mean Corpuscular Volume 104 fL (80-94); Mean Platelet Volume 9.4 fL (7.4-10.4); Nucleated Red Blood Cells % 0.1; Platelet Count 199 10^3/uL (150-450); Red Blood Count 3.97 10^6 /uL (4.18-5.48); Red Cell Distribution Width 16 % (10-15); White Blood Count 5.9 10^3/uL (3.5-10.8)
[2019-07-22 16:18] LABS: Albumin 3.6 g/dL (3.2-5.2); Albumin/Globulin Ratio 1.1 (1-3); C Reactive Protein 23.66 mg/L (<8.01); Calcium 9.4 mg/dL (8.6-10.3); EGFR African American 76.5 (>60); EGFR Non-African American 63.3 (>60); Globulin 3.3 g/dL (2-4); Indirect Bilirubin 0.9 mg/dL (0.3-1.0); Magnesium 1.9 mg/dL (1.9-2.7); Potassium 4.1 mmol/L (3.5-5.0); Total Bilirubin 1.4 mg/dL (0.2-1.0); Total Protein 6.9 g/dL (6.4-8.9)
[2019-07-22] MEDS ORDERED: Iohexol 300* (CONTRAST) 10 ML SDV IV ONE (16:36)
--- NOTE | 2019-07-22 19:01 | ED ---
Progress - Results/Orders Results/Orders: ct abd: IMPRESSION: 1. Moderate to large left-sided pleural effusion and moderate to severe peritoneal ascites. 2. The liver surface is lobular, new since the December CT examination. Please correlate to LFTs and clinical history consistent with cirrhosis. 3. Additional chronic, degenerative and iatrogenic findings described in the body the report. Re-Evaluation - Re-Evaluation First Eval Comment: appears well, lungs CTA. has ascites noted on exam. mild edema to legs. Course/Dx - Course Course Of Treatment: Patient evaluated in the emergency department for ascites. Patient was seen and examined his vitals are stable and he is afebrile. Ultrasound of the abdomen was done which showed evidence of moderate ascites. Labs returned showing no leukocytosis but there is mild anemia with an H&H of 13.9/41, this is his baseline. There are no significant electrolyte abnormalities. BUNs elevated at 26 Total bilirubin elevated at 1.40 and direct bilirubin elevated at 0.50 and alkaline phosphatase 212 which are elevated compared to prior studies. C-reactive protein elevated at 23.66. BNP elevated at 374 which is his baseline. Dr. Baez, his building services supervisor, was consulted at [address] of the chest abdomen pelvis with and without contrast for investigation as to the cause of his ascites of the new finding. CT abd shows changes in liver and ascites. discussed with dr baez who will talk with hospitalist. hospitalist will admt. - Diagnoses Provider Diagnoses: Ascites Discharge ED - Sign-Out/Discharge Documenting (check all that apply): Patient Departure, Receiving Sign-Out Receiving patient FROM: Yassine Carrion - Discharge Plan Condition: Stable Disposition: ADMITTED TO [facility] Referrals: Geraldo Gomes MD [Primary Care Provider] - - Billing Disposition and Condition Condition: STABLE Disposition: Admitted to [facility]
--- NOTE | 2019-07-22 19:31 | ADMNOTE ---
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 For years, he was being followed outpatient with cardiology for cardiomyopathy which he takes diuretics for. His hemochromomatosis have formally not yet been diagnosed and pt said his ferritin is low enough that it never warranted treatment. Just 2 months ago, he started noticing increased abdominal girth. His data administrator had set up workup for him outpatient. Today, he woke up with complaint of right lower quadrant pain. He called the data administrator who prompted him to the ED. By the time he arrived, pain had dissipated. Workup for new onset ascites started. He had an US of his abdomen and a CT of his abdomen. Ct abdomen showed possibled cirrhosis with moderate sized ascites, his US did not show evidence of cirrhosis but showed ascites with splenomegaly. Family History: Unchanged from Admission Social History: Unchanged from Admission Past Medical History: Unchanged from Admission Review of Systems - Measurements Intake and Output: Intake and Output Last 24 Hours 07/20/19 07/21/19 07/22/19 07/23/19 06:59 06:59 06:59 06:59 Weight 186 lb Objective Active Medications: Apremilast (Otezla (Nf)) 30 mg PO BID JEREMI Atenolol (Tenormin Tab*) 25 mg PO DAILY JEREMI Vital Signs - 8 hr 07/22/19 07/22/19 07/22/19 12:20 14:46 14:47 Temperature 98.8 F Pulse Rate 76 74 73 Respiratory 14 Rate Blood Pressure 103/70 113/76 (mmHg) O2 Sat by Pulse 98 99 99 Oximetry 07/22/19 07/22/19 07/22/19 15:00 15:16 15:46 Temperature Pulse Rate 73 74 76 Respiratory Rate Blood Pressure 98/70 108/76 (mmHg) O2 Sat by Pulse 100 100 98 Oximetry 07/22/19 07/22/19 07/22/19 16:00 16:16 17:34 Temperature Pulse Rate 76 77 82 Respiratory Rate Blood Pressure 109/83 (mmHg) O2 Sat by Pulse 98 98 95 Oximetry 07/22/19 07/22/19 07/22/19 17:46 18:00 18:16 Temperature Pulse Rate 80 83 81 Respiratory Rate Blood Pressure 97/72 102/77 (mmHg) O2 Sat by Pulse 97 95 97 Oximetry 07/22/19 07/22/19 07/22/19 18:46 19:00 19:16 Temperature Pulse Rate 80 84 Respiratory Rate Blood Pressure 105/75 106/77 (mmHg) O2 Sat by Pulse 96 95 Oximetry Appearance: NID Eyes: No Scleral Icterus, PERRLA Ears/Nose/Mouth/Throat: Clear Oropharnyx, Mucous Membranes Moist Neck: NL Appearance and Movements; NL JVP, Trachea Midline Respiratory: Symmetrical Chest Expansion and Respiratory Effort, Clear to Auscultation, Clear to Percussion Cardiovascular: NL Sounds; No Murmurs; No JVD, - - 2+ edema Abdominal: - - moderate distention Skin: No Rash or Ulcers, No Nodules or Sclerosis Neurological: Alert and Oriented x 3, NL Muscle Strength and Tone Result Diagrams: 07/22/19 15:35 07/22/19 15:35 Assess/Plan/Problems-Billing Assessment: - Patient Problems (1) Ascites Current Visit: Yes Status: Acute Code(s): R18.8 - OTHER ASCITES SNOMED Code(s): 758784523 Comment: new onset ascites in a patient with hemochromatosis, EtOH, and heart disease Us of the liver did not show evidence of cirrhosis noted increased abdominal girth. 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 Continue allopurinol. (4) HTN (hypertension) Current Visit: No Status: Acute Code(s): I10 - ESSENTIAL (PRIMARY) HYPERTENSION SNOMED Code(s): 12093421 Comment: no longer on anti-HTN meds, in fact his pressure has been running soft which pt said is his baseline. on diuretics (5) Heart failure with preserved ejection fraction Current Visit: No Status: Acute Code(s): I50.30 - UNSPECIFIED DIASTOLIC ( CONGESTIVE) HEART FAILURE SNOMED Code(s): 050675576 Comment: diastolic dysfunction related to long standing HTN cont spironalactone and lasix (6) Hemochromatosis Current Visit: No Status: Acute Code(s): E83.119 - HEMOCHROMATOSIS, UNSPECIFIED SNOMED Code(s): 616722989 Comment: as per DR. Holcomb -managed outpatient (7) Lung disease Current Visit: No Status: Acute Code(s): J98.4 - OTHER DISORDERS OF LUNG SNOMED Code(s): 28863399 Comment: Not clear from medical records what lung disease pt has. He used to be on Prednisone 10 [address] daily prscribed by DR. Tran which he said he no longer takes (8) DVT prophylaxis Current Visit: No Status: Acute Code(s): UPS7160 - SNOMED Code(s): 035304362 Comment: holding eliquis pending para (9) Atrial flutter Current Visit: Yes Status: Acute Code(s): I48.92 - UNSPECIFIED ATRIAL FLUTTER SNOMED Code(s): 1439220 Comment: cont proprafenone
[2019-07-22 20:14] LABS: INR 1.56 (0.82-1.09)
[2019-07-22 20:39] LABS: Urine Appearance Clear; Urine Bilirubin Negative (Negative); Urine Blood Negative (Negative); Urine Color Yellow; Urine Glucose Negative (Negative); Urine Ketones Trace (Negative); Urine Nitrite Negative (Negative); Urine Protein 1+(30 mg/dL) (Negative); Urine Specific Gravity > 1.060 (1.010-1.030); Urine Urobilinogen Negative (Negative)
[2019-07-22 20:42] LABS: Urine Bacteria Absent (Absent); Urine Red Blood Cell Trace(0-2/hpf) (Absent); Urine Squamous Epithelial Cell Present (Absent); Urine White Blood Cell Absent (Absent)
[2019-07-22] MEDS: APREMILAST 30 MG PO SCH (23:10)
[2019-07-22] MEDS: proPAFENone TAB* 150 MG PO SCH (23:12)
[2019-07-23] MEDS: proPAFENone TAB* 150 MG PO SCH ×3 (05:17→21:24)
[2019-07-23 06:45] LABS: Hematocrit 35 % (42-52); Hemoglobin 11.9 g/dL (14.0-18.0); Mean Corpuscular HGB Conc 34 g/dL (31-36); Mean Corpuscular Hemoglobin 35 pg (27-31); Mean Corpuscular Volume 104 fL (80-94); Mean Platelet Volume 9.9 fL (7.4-10.4); Platelet Count 175 10^3/uL (150-450); Red Cell Distribution Width 16 % (10-15); White Blood Count 5.3 10^3/uL (3.5-10.8)
[2019-07-23 06:54] LABS: Potassium 3.8 mmol/L (3.5-5.0)
[2019-07-23 07:50] LABS: BUN/Creatinine Ratio 23.1 (8-20); Calcium 9.2 mg/dL (8.6-10.3); EGFR African American 73.5 (>60); EGFR Non-African American 60.8 (>60)
[2019-07-23] MEDS: Atenolol TAB* 25 MG PO SCH (09:34)
[2019-07-23] MEDS: Torsemide TAB* 20 MG PO SCH ×2 (09:34→11:34)
[2019-07-23] MEDS: Allopurinol TAB* 300 MG PO SCH (09:47)
[2019-07-23] MEDS: Spironolactone TAB* 25 MG PO SCH (10:04)
[2019-07-23 11:56] LABS: Folate 2.93 ng/mL (>3.99)
[2019-07-23] MEDS ORDERED: Perflutren Lipid Microsphere* 3 ML VIAL ONE (14:10)
[2019-07-23] MEDS: APREMILAST 30 MG PO SCH ×2 (14:51→21:24)
--- NOTE | 2019-07-23 16:32 | ECHO ---
*[facility]* [place] [address] Fax #: [phone] Transthoracic Echocardiogram Patient: Carlos Alberto Hartman : 1945 Study Date: 07/23/2019 Age: 74 Gender: M HR: 81 bpm Height: 72 in /182.9 cm BSA: 2.07 m^2 Weight: 186.6 lb /84.8 kg BMI: 25.4 kg/m^2 *Cleaner Operator: Ngozi Kyle [facility] *Referring Physician: * Charly Chase *Reading Physician: * Isabella Gomez MD Indications: Congestive Heart Failure. History: Hemachromatosis, cor pulmonale. Atrial flutter. Aortic stenosis. PMH: Cardiomyopathy. Risk factors: Hypertension. Conclusions Summary: - Left ventricle: Not well visualized. Systolic function is probably normal. The estimated ejection fraction is 50-55%. - Mitral valve: There is no significant regurgitation. - Aortic valve: The findings are consistent with stenosis; unable to accurately calculate GER due to poor imaging. - Aorta: The aorta is poorly visualized. - Pericardium, extracardiac: There is no significant pericardial effusion. - Pulmonary arteries: Systolic pressure can not be accurately estimated. - TDS and very limited. C/t 10/02/2018, probably no overt significant changes. Study data: Transthoracic echocardiogram. Procedure: Transthoracic echocardiography was performed. Image quality was poor. Intravenous Definity , 4 mls was administered. Complete 2D, spectral Doppler, and color flow Doppler. Location: Bedside. Patient status: Inpatient. Patient room number: 449 02. Rhythm: Normal sinus rhythm. Findings Left ventricle: Not well visualized. Systolic function is probably normal. The estimated ejection fraction is 50-55%. Although no diagnostic regional wall motion abnormality is identified, this possibility cannot be completely excluded on the basis of this study. Left ventricular diastolic function parameters are normal. Right ventricle: Poorly visualized. Systolic function is probably normal. Left atrium: The atrium is normal in size. Right atrium: The atrium is normal in size. Mitral valve: Not well visualized. The leaflets are normal thickness. There is no evidence of stenosis. There is no significant regurgitation. Aortic valve: The leaflets are moderately thickened. The findings are consistent with stenosis; unable to accurately calculate GER due to poor imaging. There is no significant regurgitation. Tricuspid valve: The leaflets are normal thickness. There is no evidence of stenosis. There is no significant regurgitation. Pulmonic valve: The leaflets are normal thickness. There is no evidence of stenosis. There is no significant regurgitation. Aorta: The aorta is poorly visualized. Pericardium: There is no significant pericardial effusion. Pulmonary arteries: The main pulmonary artery is normal-sized. Systolic pressure can not be accurately estimated. Systemic veins: Inferior vena cava: The vessel is dilated. There is (< 50%) respiratory change in the IVC dimension. Measurements Left ventricle Value Ref Aortic valve continued Value Ref E', med luis m, TDI 11.9 cm/sec >=7.0 Mean grad, S 6.0 mm Hg --- - E/e', med luis m, TDI 6 --------- Peak grad, S 10.0 mm Hg ---- LVOT Value Ref Mitral valve Value Ref Peak genaro, S 0.7 m/sec --------- Peak E 0.69 m/sec ---- Mean grad, S 1 mm Hg --------- Peak A 0.41 m/sec ---- Decel time 127 ms ---- Left atrium Value Ref Peak E/A ratio 1.7 ---- ML dim, A4C 4.1 cm --------- SI dim, A4C 5.8 cm --------- Pulmonic valve Value Ref Vol/bsa, ES, 1-p A4C 28 ml/m^2 12 - 37 Peak v, S 0.49 m/sec ---- Peak grad, S 1.0 mm Hg ---- Right atrium Value Ref SI dim, ES 4.7 cm 3.4 - 5.3 Decending aorta Value Ref ML dim, ES, A4C 3.6 cm 2.6 - 4.4 Hanane peak genaro 0.49 m/sec ---- Aortic valve Value Ref Inferior vena cava Value Ref Peak v, S 1.58 m/sec --------- Diam 2.4 cm ---- VTI, S 33.3 cm --------- Legend: (L) and (H) aria values outside specified reference range. Prepared and electronically signed by Isabella Gomez MD 07/23/2019 16:32
--- NOTE | 2019-07-23 17:11 | PN ---
Subjective Date of Service: 07/23/19 Interval History: Patient is feeling well today. Patient has persistent abdominal fullness and some SOB associated with it. Patient has some pressure in RUQ. Patient denies F/ C, N/V, abdominal pain, dysuria, CP, rash, or other recent changes in status or illness. Family History: Unchanged from Admission Social History: Unchanged from Admission Past Medical History: Unchanged from Admission Objective Active Medications: Allopurinol (Zyloprim Tab*) 300 mg PO DAILY [facility] Last Admin: 07/23/19 09:47 Dose: 300 mg Apremilast (Otezla (Nf)) 30 mg PO BID [facility] Last Admin: 07/23/19 14:51 Dose: Not Given Atenolol (Tenormin Tab*) 25 mg PO DAILY [facility] Last Admin: 07/23/19 09:34 Dose: Not Given Propafenone HCl (Rythmol*) 150 mg PO Q8HR [facility] Last Admin: 07/23/19 14:52 Dose: 150 mg Spironolactone (Aldactone Tab*) 25 mg PO DAILY [facility] Last Admin: 07/23/19 10:04 Dose: Not Given Torsemide (Demadex*) 40 mg PO DAILY [facility] Last Admin: 07/23/19 11:34 Dose: 40 mg Vital Signs - 8 hr 07/23/19 07/23/19 12:14 15:44 Temperature 97 F 97.9 F Pulse Rate 78 87 Respiratory 16 20 Rate Blood Pressure 110/79 101/66 (mmHg) O2 Sat by Pulse 98 96 Oximetry Oxygen Devices in Use Now: None Appearance: Patient is a 74yo male who appears stated age and is sitting in the bed in [facility]. Eyes: No Scleral Icterus, PERRLA Ears/Nose/Mouth/Throat: NL Teeth, Lips, Gums, Clear Oropharnyx, Mucous Membranes Moist Neck: NL Appearance and Movements; NL JVP, Trachea Midline, No Thyroid Enlargement, Masses Respiratory: Symmetrical Chest Expansion and Respiratory Effort, Clear to Auscultation Cardiovascular: NL Sounds; No Murmurs; No JVD, RRR, - - Trace B/L LE edema. Abdominal: - - Distention consistent with tense ascites. Lymphatic: No Cervical Adenopathy Extremities: No Clubbing, Cyanosis Skin: No Rash or Ulcers, No Nodules or Sclerosis Neurological: Alert and Oriented x 3, NL Sensation, NL Muscle Strength and Tone , - - CN II-XII intact. Result Diagrams: 07/23/19 05:44 07/23/19 05:44 Assess/Plan/Problems-Billing Assessment: Patient is a 74yo male with a PMH for Restrictive Cardiomyopathy of unclear origin, Possible Hemochromatosis, Afib, here with Newly worsening ascites of unclear etiology. - Patient Problems (1) Ascites Current Visit: Yes Status: Acute Code(s): R18.8 - OTHER ASCITES SNOMED Code(s): 633063015 Comment: - New onset ascites in a patient with hemochromatosis, EtOH, and heart disease - Us of the liver did not show evidence of cirrhosis - Noted increased abdominal girth. US confirmed moderate ascites - Pt needs a paracentesis with studies to differentiate cardiac vs hepatic ascites - Given low BP, will monitor until after first paracentesis which will be performed tomorrow. - Albumin WNL, no transaminitis, Slightly elevated bilirubin and ALP consistent with congestion - Was recently started on Otezla, but LFTs have been monitored after this without concern. (2) Diastolic CHF with preserved left ventricular function, NYHA class 4 Current Visit: No Status: Acute Code(s): I50.30 - UNSPECIFIED DIASTOLIC ( CONGESTIVE) HEART FAILURE SNOMED Code(s): 987392856 Comment: - History of constrictive cardiomyopathy secondary to unclear cause, Workup is ongoing hemochromatosis vs amyloidosis S/P Cardiac MRI) - Without Pulmonary Edema, but has previously had predominantly right sided symptoms - Cont home diuretics and propafenone (3) Atrial flutter Current Visit: Yes Status: Acute Code(s): I48.92 - UNSPECIFIED ATRIAL FLUTTER SNOMED Code(s): 0612941 Comment: - Cont proprafenone - Hold Eliquis for Paracentesis. (4) Cirrhosis of liver Current Visit: Yes Status: Acute Comment: - New diagnosis, Seen on CT but not US. - Will likely need outpatient Elastography. - Pt has hx of hemochromatosis which seems to be effectively treated and is a heavy drinker but lacks AST/ALT abnormality (5) HTN (hypertension) Current Visit: No Status: Acute Code(s): I10 - ESSENTIAL (PRIMARY) HYPERTENSION SNOMED Code(s): 02345994 Comment: - Now hypotensive, Continue diuretics. (6) Hemochromatosis Current Visit: No Status: Acute Code(s): E83.119 - HEMOCHROMATOSIS, UNSPECIFIED SNOMED Code(s): 258012168 Comment: - Ferritin has been WNL for several checks per patient (Was elevated above 500 and patient had several phlebotomy treatments. (7) Lung disease Current Visit: No Status: Acute Code(s): J98.4 - OTHER DISORDERS OF LUNG SNOMED Code(s): 28166433 Comment: - Unclear cause from recent PFTs, may all be related to cardiac disease. (8) Vitamin D deficiency Current Visit: No Status: Acute Code(s): E55.9 - VITAMIN D DEFICIENCY, UNSPECIFIED SNOMED Code(s): 76403901 Comment: Continue Vitamin D supplementation. (9) Full code status Current Visit: No Status: Acute Code(s): Z78.9 - OTHER SPECIFIED HEALTH STATUS SNOMED Code(s): 871518735 (10) DVT prophylaxis Current Visit: No Status: Acute Code(s): QWK9035 - SNOMED Code(s): 098054962 Comment: - Holding eliquis pending para Status and Disposition: Inpatient pending paracentesis
[2019-07-24] MEDS: proPAFENone TAB* 150 MG PO SCH ×2 (06:10→15:36)
[2019-07-24 07:26] LABS: ABS Eosinophils 0.1 10^3/ul (0-0.6); ABS Lymphocytes 0.5 10^3/ul (1.0-4.8); ABS Monocytes 0.6 10^3/ul (0-0.8); ABS Neutrophils 3.6 10^3/ul (1.5-7.7); Eosinophil % 1.8 %; Hematocrit 37 % (42-52); Hemoglobin 12.3 g/dL (14.0-18.0); Lymphocyte % 10.1 %; Mean Corpuscular HGB Conc 33 g/dL (31-36); Mean Corpuscular Hemoglobin 34 pg (27-31); Mean Corpuscular Volume 104 fL (80-94); Mean Platelet Volume 9.2 fL (7.4-10.4); Platelet Count 186 10^3/uL (150-450); Red Blood Count 3.58 10^6 /uL (4.18-5.48); Red Cell Distribution Width 16 % (10-15); White Blood Count 4.8 10^3/uL (3.5-10.8)
[2019-07-24 07:47] LABS: Albumin 3.5 g/dL (3.2-5.2); Albumin/Globulin Ratio 1.2 (1-3); BUN/Creatinine Ratio 18.2 (8-20); Calcium 9.5 mg/dL (8.6-10.3); EGFR African American 58.3 (>60); EGFR Non-African American 48.2 (>60); Globulin 2.9 g/dL (2-4); Magnesium 1.9 mg/dL (1.9-2.7); Potassium 3.5 mmol/L (3.5-5.0); Total Bilirubin 1.3 mg/dL (0.2-1.0); Total Protein 6.4 g/dL (6.4-8.9)
[2019-07-24] MEDS: Atenolol TAB* 25 MG PO SCH (08:20)
[2019-07-24] MEDS: Allopurinol TAB* 300 MG PO SCH (08:21)
[2019-07-24] MEDS: Torsemide TAB* 20 MG PO SCH (08:21)
[2019-07-24] MEDS: Spironolactone TAB* 25 MG PO SCH (08:22)
[2019-07-24] MEDS: APREMILAST 30 MG PO SCH (08:22)
[2019-07-24] MEDS ORDERED: Cyanocobalamin TAB* 500 MCG PO SCH (09:00)
[2019-07-24] MEDS ORDERED: Folic Acid TAB* 1 MG PO SCH (09:00)
[2019-07-24 14:19] LABS: Body Fluid Source Peritonial Fluid
[2019-07-24 15:48] LABS: Body Fluid Mono 67 %
[2019-07-24 16:02] VITALS: BP 92/66
[2019-07-25 12:50] LABS: Fluid Type: PERITONEAL; Triglycerides (BF) 47 mg/dL
--- NOTE | 2019-07-25 13:08 | DS ---
CC: Dr. Gomes; Dr. Kayla Singh * DISCHARGE SUMMARY: DATE OF ADMISSION: 07/22/19 DATE OF DISCHARGE: 07/24/19 PRIMARY CARE PROVIDER: Dr. Gomes. OUTPATIENT LAUNDRY ASSISTANT: Dr. Kayla Singh. MY ATTENDING WHILE IN THE HOSPITAL: Dr. Lyssa Wilson.* (DICTATED BY NAREN NUGENT) PRIMARY DISCHARGE DIAGNOSES: 1. New-onset ascites, unclear cause. 2. Hypotension. SECONDARY DISCHARGE DIAGNOSES: 1. Restrictive cardiomyopathy. 2. Heart failure with preserved ejection fraction. 3. Possible hemochromatosis. 4. Possible amyloidosis. 5. History of nephrolithiasis. 6. Chronic pleural effusion. 7. History of melanoma, status post resection. 8. Obstructive sleep apnea. 9. Gout. 10. Back pain. 11. Pericardial thickening. 12. Psoriasis. STUDIES DONE WHILE IN THE HOSPITAL: Chest, abdomen and pelvis CT from 07/22/19 read as moderate to large left-sided pleural effusion and [id number] peritoneal ascites; liver surface is lobular, new since 12/23/16 CT examination , please correlate with LFTs and clinical history consistent with cirrhosis. Abdominal ultrasound read as splenomegaly, ascites, left pleural effusion. Liver has normal shape, contour, and echogenicity with no focal masses. Hepatopetal flow of the portal vein. Transthoracic echocardiogram read as left ventricle not well visualized. Systolic function is probably normal. Estimated ejection fraction is 50% to 55% . Mitral valve: No significant regurgitation. Aortic valve: Findings consistent with stenosis, unable to accurately calculate aortic valve area due to poor imaging, aorta is poorly visualized. Pericardium: No significant pericardial effusion. Pulmonary artery systolic pressure cannot be accurately visualized. No overt changes from previous exam. Paracentesis ultrasound read as uncomplicated ultrasound paracentesis. MEDICATIONS AT DISCHARGE: 1. Atenolol 25 mg p.o. daily. 2. Allopurinol 300 mg p.o. daily. 3. Propafenone 150 mg p.o. q.8 hours. 4. Otezla 30 mg p.o. b.i.d. 5. Torsemide 40 mg p.o. daily. 6. Apixaban 5 mg p.o. daily. 7. Tramadol 50 mg p.o. q.8 hours as needed. 8. Vitamin B12 1000 mcg p.o. daily. 9. Folic acid 1 mg p.o. daily. 10. Spironolactone 25 mg p.o. daily. New medications at discharge: 1. Vitamin B12. 2. Folic acid. 3. Spironolactone. HOSPITAL COURSE: This is a brief summary of the patient's presentation. For more details, please see the history and physical from Dr. Renay Dennis on 06/30. In brief, the patient is a 74-year-old male with past medical history significant for the above, who has had a very complicated past medical history and predominantly right-sided heart failure as well as left-sided pleural effusion, which has previously been drained multiple times. The patient had been having 2 months of worsening abdominal girth, which got significantly worse over the past several days before his admission leading to feeling like he had decreased ability to take a deep breath and significant abdominal pressure. The patient had on the day of admission right lower quadrant pain that prompted his breastfeeding program coordinator to have him come to the emergency department, though this had dissipated by the time he arrived. The patient had studies as above consistent with new-onset significantly worsened ascites and possibility of cirrhosis of the liver, though this was inconsistent between different study modalities. The patient's blood pressure was mildly hypotensive, though he was asymptomatic from this. The patient and his state that they check his blood pressure frequently and that this is not abnormally low for him and these are consistent with values from when he was previously admitted to the hospital. The patient was stable in the hospital with no new complaints and underwent an uncomplicated paracentesis on 07/24/19, after which he had no worsening hypertension or symptomatic hypotension and no signs of bleeding or other complications. The patient was stable and amenable for discharge on 07/24. PHYSICAL EXAM ON THE DAY OF DISCHARGE: General: The patient is a 74-year-old male, who appears stated age and sitting comfortably in the bed, in no acute distress. Vital Signs: At the time of discharge, temperature 97.3, pulse rate 77, respiratory rate 20, oxygen saturation 100% on room air, blood pressure 92/ 66. HEENT: Head normocephalic, atraumatic. Sclerae anicteric. No conjunctival injection. Nasal mucosa moist. Oral mucosa moist. No pharyngeal erythema, discharge, or exudate. Neck: Supple, nontender. No lymphadenopathy. No carotid bruits auscultated. No JVD. Cardiac: Regular rate and rhythm. No clicks, murmurs, gallops, or rubs. Pulses are 2+ in the bilateral dorsalis pedis, posterior tibialis, and radial areas. Trace bilateral lower extremity edema noted. Respiratory: Diminished in the left lung base. No adventitious lung sounds. Good air exchange bilaterally. Abdomen: Distended. Nontender to palpation. No palpable hepatosplenomegaly. Limited exam by distention. No abdominal bruits auscultated. Bowel sounds present and normoactive in all 4 quadrants. Genitourinary: No suprapubic or CVA tenderness. Skin: Clean, dry, and intact. No spider angiomas, palmar erythema, or other signs of hyperestrogenemia. Neuro: Cranial nerves II through XII intact. No focal deficits. Alert and oriented x3. Psychiatric: Pleasant and cooperative. DISCHARGE PLAN BY PROBLEM: 1. Ascites. The patient's new-onset ascites is likely due to a cardiac cause based on his significant history of cor pulmonale associated with his restrictive heart failure; however, given the unresolved differential for the patient's heart disease which includes hemochromatosis and amyloidosis both of which may also affect the liver. Testing on the peritoneal fluid including protein levels is pending to assess transudative or exudative etiology of the ascites and if transudative whether or not this likely represents cirrhotic or cardiac ascites. If the patient does end up having cirrhotic ascites, this would likely require referral to a budder and possible liver biopsy as this may even aid in determining the etiologic process of his cardiomyopathy. The patient will be continued on his diuretics of torsemide and spironolactone. This is mainly optimized for his cardiac status at this point given that this is not believed to be likely related to cirrhotic ascites or change of the ratio of the loop to potassium-sparing diuretics may be considered if the patient does have cirrhosis. The patient had no signs of complication or bleeding. The patient's cell counts showed approximately 1000 white blood cells with a monocytic predominance and only 9% of PMNs. The patient had no other abdominal symptoms and it is not deemed necessary to treat the patient with an antibiotic for SBP. 2. Restrictive cardiomyopathy. The patient should continue to follow up with his outpatient breastfeeding program coordinator with whom he has an appointment on 07/27/19 and possibly with his outpatient asset protection specialist for continued evaluation of his heart disease. The patient will be continued on his diuretics as above. The patient's echo was a limited study, but had no significant changes from previous examination. 3. Psoriasis. Continue the patient's Otezla. The patient had no LFT abnormalities consistent with having developed hepatocellular injury from his Otezla and this medication will not be stopped at this time. 4. Vitamin B12 and folate deficiency. The patient had a macrocytic anemia and was tested for B12 and folate. The folate was overtly low and the B12 was borderline low. Both will be supplemented. His CBC should be followed with this. 5. Atrial fibrillation. Continue the patient's Rythmol, atenolol, and Eliquis. 6. Gout. Continue the patient's allopurinol. DIET: The patient should have a low-salt, heart-healthy diet. DISPOSITION: Home. CONDITION: Stable. TIME SPENT: Approximately 60 minutes was spent on the discharge of this patient , 30 of which was spent [id number] with the patient obtaining history and physical and discussing treatment plan. NAREN NUGENT [id number]/[facility] #: [id number] ANANTH
[2019-07-25 13:27] LABS: Lactate Dehydrogenase, BF 68 U/L
[2019-07-25 16:02] LABS: Fluid Type, Glucose PERITONEAL; Fluid Type, Protein, Total PERITONEAL FLU
== END 2019-07-24 15:59 | disposition home or self-care (01) | DRG 948 ==
LOC: ED 10:26 → MEDTELE 19:16
PROVIDERS: ADMIT Student in an Organized Health Care Education/Training Program; ATTEND Internal Medicine
PROC: 0W9G3ZZ Drainage of Peritoneal Cavity, Percutaneous Approach (ICD-10-PCS; principal; 2019-07-24)
DX: R18.8 Other ascites (principal); I42.5 Other restrictive cardiomyopathy; I50.32 Chronic diastolic (congestive) heart failure; I48.92 Unspecified atrial flutter; E85.9 Amyloidosis, unspecified; E83.119 Hemochromatosis, unspecified; I11.0 Hypertensive heart disease with heart failure; M47.819 Spondylosis without myelopathy or radiculopathy, site unspecified; H91.90 Unspecified hearing loss, unspecified ear; I95.9 Hypotension, unspecified; G47.33 Obstructive sleep apnea (adult) (pediatric); M54.9 Dorsalgia, unspecified; L40.9 Psoriasis, unspecified; I50.810 Right heart failure, unspecified; I27.81 Cor pulmonale (chronic); I48.91 Unspecified atrial fibrillation; D51.9 Vitamin B12 deficiency anemia, unspecified; D52.9 Folate deficiency anemia, unspecified; D53.9 Nutritional anemia, unspecified; M10.9 Gout, unspecified; Z97.4 Presence of external hearing-aid; Z88.5 Allergy status to narcotic agent; Z88.0 Allergy status to penicillin; Z88.8 Allergy status to other drugs, medicaments and biological substances; Z85.820 Personal history of malignant melanoma of skin; Z87.891 Personal history of nicotine dependence; Z87.442 Personal history of urinary calculi; Z79.01 Long term (current) use of anticoagulants; Z79.899 Other long term (current) drug therapy
CPT/HCPCS: 36415; 49083; 71260; 74177; 76700; 80048; 80053; 81003; 81015; 82140; 82248; 82607; 82746; 82945; 83615; 83690; 83735; 83880; 84157; 84478; 84484; 85025; 85027; 85610; 86140; 89051; 93005; 93306; 99284; A9270-GY; C8929; Q9967

== ENCOUNTER 2021-10-05 09:18 | Observation (INO) ==
[2021-10-05 09:56] LABS: Rapid COVID-19 Molecular Undetected (Undetected)
[2021-10-05 10:22] LABS: Calcium 9.4 mg/dL (8.6-10.3); Magnesium 1.9 mg/dL (1.9-2.7); Potassium 4.5 mmol/L (3.5-5.0); eGFR CKD-EPI 80.4 (>60)
[2021-10-05] MEDS ORDERED: Naloxone 0.4 mg VIAL 0.4 mg/ml 1 ml VIAL ONE (11:01)
[2021-10-05] MEDS ORDERED: Midazolam 5 mg/5 ml VIAL 1 mg/ml 5 ml VIAL (5 mg) ONE (11:01)
[2021-10-05] MEDS ORDERED: Flumazenil 0.5 mg/5 ml 0.1 MG/ML 5 ml VIAL ONE (11:01)
[2021-10-05] MEDS ORDERED: fentaNYL 100 mcg/2 ml 50 MCG/ML VIAL ONE (11:01)
[2021-10-05] MEDS ORDERED: Albuterol HFA INHALER 8 gm MDI INH PRN (14:12)
[2021-10-05] MEDS ORDERED: Magnesium Sulfate IV 1GM/100ML 1 GM/100 ML BAG IV ONE (14:16)
[2021-10-05] MEDS ORDERED: Furosemide 40 mg/4 ml IV VIAL IV SLOW PU ONE (15:00)
[2021-10-05 15:23] LABS: C Reactive Protein 47.29 mg/L (<8.01)
[2021-10-05 15:30] LABS: ABS Lymphocytes 0.4 10^3/ul (1.0-4.8); ABS Monocytes 0.4 10^3/ul (0-0.8); ABS Neutrophils 5.3 10^3/ul (1.5-7.7); Eosinophil % 0.7 %; Hematocrit 42 % (42-52); Lymphocyte % 6.1 %; Mean Corpuscular HGB Conc 33 g/dL (31-36); Mean Corpuscular Hemoglobin 32 pg (27-31); Mean Corpuscular Volume 97 fL (80-94); Platelet Count 237 10^3/uL (150-450); Red Blood Count 4.32 10^6 /uL (4.18-5.48); Red Cell Distribution Width 15 % (10-15); White Blood Count 6.2 10^3/uL (3.5-10.8)
[2021-10-05 15:44] LABS: Albumin 3.5 g/dL (3.2-5.2); Albumin/Globulin Ratio 1.1 (1-3); Direct Bilirubin 0.1 mg/dL (0.03-0.18); Globulin 3.3 g/dL (2-4); HDL Cholesterol 52.2 mg/dL; Indirect Bilirubin 0.5 mg/dL (0.3-1.0); Total Bilirubin 0.6 mg/dL (0.2-1.0); Total Protein 6.8 g/dL (6.4-8.9)
[2021-10-05] MEDS ORDERED: Heparin 5000 UNITS/ML 1 mL VIAL SUBCUT SCH (16:00)
[2021-10-05 16:11] LABS: TSH Ultra Thyroid Stim Horm 5.23 mcIU/mL (0.34-5.60)
[2021-10-05 16:24] LABS: Urine Appearance Clear; Urine Bilirubin Negative (Negative); Urine Blood Negative (Negative); Urine Color Yellow; Urine Glucose Negative (Negative); Urine Ketones 1+ (Negative); Urine Nitrite Negative (Negative); Urine Protein Negative (Negative); Urine Specific Gravity 1.015 (1.002-1.030); Urine Urobilinogen Negative (Negative)
[2021-10-05 17:13] LABS: Erythrocyte Sed Rate 18 mm/Hr (0-19)
[2021-10-06 06:18] LABS: ABS Eosinophils 0.2 10^3/ul (0-0.6); ABS Lymphocytes 0.4 10^3/ul (1.0-4.8); ABS Monocytes 0.7 10^3/ul (0-0.8); ABS Neutrophils 3.9 10^3/ul (1.5-7.7); Eosinophil % 3.4 %; Hematocrit 38 % (42-52); Hemoglobin 12.6 g/dL (14.0-18.0); Lymphocyte % 7.3 %; Mean Corpuscular HGB Conc 33 g/dL (31-36); Mean Corpuscular Hemoglobin 33 pg (27-31); Mean Corpuscular Volume 98 fL (80-94); Mean Platelet Volume 9.9 fL (7.4-10.4); Platelet Count 206 10^3/uL (150-450); Red Blood Count 3.89 10^6 /uL (4.18-5.48); Red Cell Distribution Width 15 % (10-15); White Blood Count 5.2 10^3/uL (3.5-10.8)
[2021-10-06 06:29] LABS: Magnesium 1.8 mg/dL (1.9-2.7); eGFR CKD-EPI 76.6 (>60)
[2021-10-06] MEDS ORDERED: Magnesium Sulfate 2 gm BAG 2 GM/50 ML BAG IVPB ONE (07:28)
[2021-10-06 14:51] LABS: Body Fluid Appearance Bloody; Body Fluid Color Red; Body Fluid Source Pleural Fluid
[2021-10-06 16:04] LABS: Body Fluid WBC 533 /mcL
[2021-10-06 17:38] LABS: Body Fluid Total Cells Counted 200
[2021-10-06 17:39] LABS: Body Fluid Mono 37 %
[2021-10-07 06:26] LABS: Calcium 9.2 mg/dL (8.6-10.3); eGFR CKD-EPI 79.4 (>60)
[2021-10-07 12:14] LABS: Lactate Dehydrogenase, BF 110 U/L
[2021-10-07 13:30] VITALS: BP 96/65
[2021-10-07 13:35] LABS: Glucose, BF 79 mg/dL
[2021-10-07 13:37] LABS: Fluid Type, Protein, Total PLEURAL; Total Protein, BF 2.7 g/dL
== END 2021-10-07 13:25 | disposition home or self-care (01) ==
LOC: CHICATH 09:18 → SUATTDRO 12:30 → INTOOBSV 12:30 → MEDTELE 12:30
PROVIDERS: ADMIT Specialist; ATTEND Internal Medicine
PROC: CARDVER (ICD-10-PCS; 2021-10-05 11:20)

== ENCOUNTER 2022-08-28 22:25 | Observation (INO) ==
[2022-08-29 00:08] LABS: ABS Lymphocytes 0.3 10^3/ul (1.0-4.8); ABS Monocytes 0.7 10^3/ul (0-0.8); ABS Neutrophils 6.9 10^3/ul (1.5-7.7); Eosinophil % 0.1 %; Hematocrit 44 % (42-52); Hemoglobin 14.1 g/dL (14.0-18.0); Lymphocyte % 4.1 %; Mean Corpuscular HGB Conc 32 g/dL (31-36); Mean Corpuscular Hemoglobin 32 pg (27-31); Mean Corpuscular Volume 100 fL (80-94); Mean Platelet Volume 9.8 fL (7.4-10.4); Platelet Count 193 10^3/uL (150-450); Red Blood Count 4.35 10^6 /uL (4.18-5.48); Red Cell Distribution Width 16 % (10-15); White Blood Count 7.9 10^3/uL (3.5-10.8)
[2022-08-29 00:23] LABS: INR 1.59 (0.88-1.18)
[2022-08-29 00:27] LABS: Urine Appearance Clear; Urine Bilirubin Negative (Negative); Urine Blood Negative (Negative); Urine Color Yellow; Urine Glucose 3+(>=500 mg/dL) (Negative); Urine Ketones Negative (Negative); Urine Nitrite Negative (Negative); Urine Protein Negative (Negative); Urine Specific Gravity 1.026 (1.002-1.030); Urine Urobilinogen Negative (Negative)
[2022-08-29 01:21] LABS: Albumin 3.4 g/dL (3.2-5.2); Calcium 8.9 mg/dL (8.6-10.3); Potassium 4.8 mmol/L (3.5-5.0); Total Bilirubin 0.6 mg/dL (0.2-1.0)
[2022-08-29 01:27] LABS: Creatinine, Serum 0.97 mg/dL (0.67-1.17); Globulin 3.3 g/dL (2-4); Total Protein 6.7 g/dL (6.4-8.9); eGFR CKD-EPI 79.9 (>60)
[2022-08-29] MEDS ORDERED: Iodixanol (CONTRAST) 320 MG/ML 100 ML SDV IV ONE (01:28)
[2022-08-29 01:38] LABS: High Sensitivity Troponin 1 Hr 4 pg/mL (<20)
[2022-08-29] MEDS ORDERED: Furosemide 40 mg/4 ml IV VIAL IV SLOW PU ONE (04:38)
[2022-08-29] MEDS ORDERED: Albuterol HFA INHALER 8 gm MDI INH PRN (07:57)
[2022-08-29] MEDS: Multivitamins/Minerals TAB PO SCH (09:44)
[2022-08-29] MEDS: FLUTICAS/UMECLI/VILANT 100-62.5-25 MDI (NF) INH SCH (09:58)
[2022-08-29] MEDS ORDERED: fentaNYL 100 mcg/2 ml 50 MCG/ML VIAL IV PRN (14:43)
[2022-08-29] MEDS ORDERED: Ondansetron 4 mg VIAL 2 MG/ML 2 ml VIAL IV PRN (14:43)
[2022-08-29] MEDS ORDERED: Naloxone 0.4 mg VIAL 0.4 mg/ml 1 ml VIAL IV PRN (14:43)
[2022-08-29] MEDS ORDERED: oxyCODONE/Acetamin 5/325 mg TAB PO PRN (14:43)
[2022-08-29 14:58] LABS: C Reactive Protein 32.11 mg/L (<8.01)
[2022-08-29 15:23] LABS: TSH Ultra Thyroid Stim Horm 5.75 mcIU/mL (0.34-5.60)
[2022-08-29 15:25] LABS: Free T4 1.42 ng/dL (0.61-1.12)
[2022-08-30] MEDS ORDERED: Lactated Ringers 1000 ml BAG 1,000 ML IV SCH ×2 (06:00)
[2022-08-30] MEDS ORDERED: Buffered Lidocaine 1% SYRIN 1 ml INTRADERM ONE ×2 (06:00)
[2022-08-30] MEDS ORDERED: Ketamine HCL 50 mg/ml 10 ml VIAL (500 MG) ONE ×2 (06:50→07:12)
[2022-08-30] MEDS ORDERED: Lidocaine 2% PF 5 ML VIAL ONE (06:50)
[2022-08-30] MEDS ORDERED: Propofol 10 MG/ML 20 ML BTL ONE (06:50)
[2022-08-30] MEDS ORDERED: fentaNYL 100 mcg/2 ml 50 MCG/ML VIAL ONE (06:50)
[2022-08-30] MEDS ORDERED: Midazolam 2 mg/2 ml VIAL 1 mg/ml 2 ml VIAL (2 mg) ONE (06:50)
[2022-08-30] MEDS: FLUTICAS/UMECLI/VILANT 100-62.5-25 MDI (NF) INH SCH ×2 (06:59→09:48)
[2022-08-30] MEDS ORDERED: Phenylephrine 40 mcg/mL 10mL (400mcg) SYRINGE ONE (07:30)
[2022-08-30] MEDS: Multivitamins/Minerals TAB PO SCH (09:25)
[2022-08-30] MEDS ORDERED: Morphine 2 MG/ML SYRINGE IV ONE (13:31)
[2022-08-30 15:25] VITALS: BP 127/75
== END 2022-08-30 16:00 | disposition home or self-care (01) ==
LOC: ED 22:25 → EDHOLD 22:25 → MED 08-29 15:25
PROVIDERS: ADMIT Student in an Organized Health Care Education/Training Program; ATTEND Student in an Organized Health Care Education/Training Program
PROC: O.CATEE (2022-08-30 07:30)

== ENCOUNTER 2023-12-27 14:02 | Inpatient (IN) ==
[2023-12-27 14:41] LABS: ABS Eosinophils 0.1 10^3/uL (0.0-0.5); ABS Lymphocytes 0.4 10^3/uL (1.0-4.8); ABS Monocytes 0.9 10^3/uL (0.0-1.1); ABS Neutrophils 5.8 10^3/uL (1.5-7.6); Eosinophil % 1.5 %; Hematocrit 42.1 % (38-53); Lymphocyte % 5.7 %; Mean Corpuscular Hemoglobin 32.2 pg (27-33); Mean Corpuscular Hgb Conc 33.3 g/dL (31-36); Mean Corpuscular Volume 96.5 fL (80-97); Platelet Count 222 10^3/uL (150-450); Red Blood Count 4.36 10^6/uL (4.06-5.63); White Blood Count 7.2 10^3/uL (3.6-10.2)
[2023-12-27 14:58] LABS: High Sens Troponin Baseline 4 pg/mL (<20)
[2023-12-27 15:37] LABS: ALT 12 U/L (7-52); Albumin 3.6 g/dL (3.2-5.2); Albumin/Globulin Ratio 1.1 (1-3); Alkaline Phosphatase 125 U/L (35-149); Blood Urea Nitrogen 24 mg/dL (6-24); CO2 Carbon Dioxide 29 mmol/L (22-32); Calcium 9.1 mg/dL (8.6-10.3); Chloride 98 mmol/L (101-111); Globulin 3.4 g/dL (2-4); Glucose 123 mg/dL (70-100); Sodium 136 mmol/L (135-145); Total Bilirubin 0.7 mg/dL (0.2-1.0); eGFR CKD-EPI 86.9 (>60)
[2023-12-27 15:38] LABS: Anion Gap 9 mmol/L (2-16)
[2023-12-27 16:04] LABS: High Sensitivity Troponin 1 Hr 3 pg/mL (<20)
[2023-12-27] MEDS: Iohexol 350 (CONTRAST) 500 ML MDV IV ONE (17:10)
[2023-12-27 20:39] LABS: Potassium Redraw 4.3 mmol/L (3.5-5.0)
[2023-12-27] MEDS ORDERED: Albuterol/Ipratropium NEB.SOL (2.5/0.5 MG) 3 ML NEB.SOLN INH PRN (20:58)
[2023-12-27] MEDS ORDERED: Albuterol HFA INHALER 8 gm MDI INH PRN (22:33)
[2023-12-27] MEDS: Sodium Chloride(INHALANT) 3% 4 ML NEB.SOLN INH SCH (23:21)
[2023-12-27] MEDS: Enoxaparin 80 MG/0.8 ML SYR SUBCUT SCH (23:32)
[2023-12-28 06:27] LABS: ABS Eosinophils 0.1 10^3/uL (0.0-0.5); ABS Lymphocytes 0.3 10^3/uL (1.0-4.8); ABS Monocytes 0.6 10^3/uL (0.0-1.1); ABS Neutrophils 3.8 10^3/uL (1.5-7.6); ABS Nucleated RBC 0.01 10^3/ul; Eosinophil % 2.6 %; Hematocrit 40.8 % (38-53); Hemoglobin 13.5 g/dL (13.2-16.3); Lymphocyte % 6.3 %; Mean Corpuscular Hemoglobin 31.7 pg (27-33); Mean Platelet Volume 9.5 fL (7.5-11.2); Nucleated Red Blood Cells % 0.1 %/100WBC (0.0-0.8); Platelet Count 188 10^3/uL (150-450); Red Blood Count 4.25 10^6/uL (4.06-5.63); Red Cell Distribution Width 15.7 % (12-17); White Blood Count 4.9 10^3/uL (3.6-10.2)
[2023-12-28 06:52] LABS: Calcium 8.8 mg/dL (8.6-10.3); Creatinine, Serum 0.98 mg/dL (0.67-1.17); Magnesium 1.9 mg/dL (1.9-2.7); eGFR CKD-EPI 78.4 (>60)
[2023-12-28] MEDS ORDERED: Sodium Chloride(INHALANT) 3% 4 ML NEB.SOLN INH SCH (07:00)
[2023-12-28] MEDS: Albuterol 2.5mg/3 ml (0.083%) NEB.SOLN INH SCH ×2 (07:34→13:45)
[2023-12-28] MEDS: PTO: BUDESONIDE/GLYCOPYR/FORMOTEROL MDI (NF) INH SCH (07:49)
[2023-12-28] MEDS: Mupirocin 2% OINT TUBE TOPICAL SCH (09:01)
[2023-12-28] MEDS: Empagliflozin 25 MG TAB PO SCH (09:01)
[2023-12-28] MEDS: Multivitamins/Minerals TAB PO SCH (09:01)
[2023-12-28] MEDS: HYDROcodone/ACETAMIN 5/325 mg TAB PO ONE (12:24)
[2023-12-28] MEDS ORDERED: Albuterol 2.5mg/3 ml (0.083%) NEB.SOLN INH SCH (13:00)
[2023-12-28] MEDS: HYDROmorphone 1 MG/1 ML SYRINGE IV ONE (17:19)
[2023-12-28] MEDS: Enoxaparin 80 MG/0.8 ML SYR SUBCUT SCH (18:04)
[2023-12-29] MEDS: Albuterol 2.5mg/3 ml (0.083%) NEB.SOLN INH SCH (07:24)
[2023-12-29 07:55] LABS: Hematocrit 39.1 % (38-53); Hemoglobin 12.8 g/dL (13.2-16.3); Mean Corpuscular Hemoglobin 31.6 pg (27-33); Mean Corpuscular Hgb Conc 32.8 g/dL (31-36); Mean Corpuscular Volume 96.2 fL (80-97); Mean Platelet Volume 9.7 fL (7.5-11.2); Platelet Count 182 10^3/uL (150-450); Red Blood Count 4.07 10^6/uL (4.06-5.63); Red Cell Distribution Width 15.5 % (12-17); White Blood Count 4.9 10^3/uL (3.6-10.2)
[2023-12-29 08:14] LABS: Calcium 8.7 mg/dL (8.6-10.3); Creatinine, Serum 0.81 mg/dL (0.67-1.17); Potassium 4.4 mmol/L (3.5-5.0); eGFR CKD-EPI 89.7 (>60)
[2023-12-29 10:13] LABS: Magnesium 1.9 mg/dL (1.9-2.7)
[2023-12-29] MEDS: Magnesium Sulfate 2 gm BAG 2 GM/50 ML BAG IVPB ONE (11:48)
[2023-12-30 06:01] LABS: Hematocrit 39.2 % (38-53); Mean Corpuscular Hemoglobin 31.9 pg (27-33); Mean Corpuscular Hgb Conc 33.2 g/dL (31-36); Mean Platelet Volume 9.9 fL (7.5-11.2); Platelet Count 195 10^3/uL (150-450); Red Blood Count 4.08 10^6/uL (4.06-5.63); Red Cell Distribution Width 15.3 % (12-17); White Blood Count 5.7 10^3/uL (3.6-10.2)
[2023-12-30 07:10] LABS: Calcium 8.8 mg/dL (8.6-10.3); Creatinine, Serum 0.89 mg/dL (0.67-1.17); Magnesium 2.2 mg/dL (1.9-2.7); Potassium 4.6 mmol/L (3.5-5.0); eGFR CKD-EPI 87.2 (>60)
[2023-12-30] MEDS: Enoxaparin 80 MG/0.8 ML SYR SUBCUT ONE (14:34)
[2023-12-31 05:38] LABS: Hematocrit 37.4 % (38-53); Hemoglobin 12.4 g/dL (13.2-16.3); Mean Corpuscular Hemoglobin 31.5 pg (27-33); Mean Corpuscular Hgb Conc 33.1 g/dL (31-36); Mean Corpuscular Volume 95.2 fL (80-97); Mean Platelet Volume 10.3 fL (7.5-11.2); Platelet Count 182 10^3/uL (150-450); Red Blood Count 3.93 10^6/uL (4.06-5.63); Red Cell Distribution Width 15.5 % (12-17); White Blood Count 4.2 10^3/uL (3.6-10.2)
[2023-12-31 05:41] LABS: Activated Partial Thrombo Time 37.6 seconds (26.0-38.0); INR 1.13 (0.83-1.13)
[2023-12-31 05:56] LABS: Calcium 8.7 mg/dL (8.6-10.3); Creatinine, Serum 0.83 mg/dL (0.67-1.17); Potassium 4.5 mmol/L (3.5-5.0)
[2023-12-31 06:11] LABS: TSH Ultra Thyroid Stim Horm 4.3 mcIU/mL (0.34-5.60)
[2023-12-31] MEDS: ceFAZolin 1 GM ADVAN 1 GM ADDV.VIAL IVPB ONE (14:47)
[2023-12-31] MEDS: fentaNYL 100 mcg/2 ml 50 MCG/ML VIAL ONE ×2 (14:47→17:41)
[2023-12-31 19:54] LABS: Body Fluid Total Nucleated 4047 /mcL
[2023-12-31 19:56] LABS: Body Fluid Appearance Bloody; Body Fluid Color Red; Body Fluid Source Pleural Fluid
[2023-12-31 20:08] LABS: Body Fluid Mono 8 %; Body Fluid Total Cells Counted 200
[2024-01-01 05:55] LABS: ABS Eosinophils 0.1 10^3/uL (0.0-0.5); ABS Lymphocytes 0.3 10^3/uL (1.0-4.8); ABS Monocytes 0.6 10^3/uL (0.0-1.1); ABS Neutrophils 3.3 10^3/uL (1.5-7.6); Hemoglobin 12.9 g/dL (13.2-16.3); Lymphocyte % 6.1 %; Mean Corpuscular Hemoglobin 31.2 pg (27-33); Mean Corpuscular Hgb Conc 32.9 g/dL (31-36); Mean Corpuscular Volume 94.9 fL (80-97); Mean Platelet Volume 9.9 fL (7.5-11.2); Nucleated Red Blood Cells % 0.1 %/100WBC (0.0-0.8); Platelet Count 189 10^3/uL (150-450); Red Blood Count 4.12 10^6/uL (4.06-5.63); Red Cell Distribution Width 15.2 % (12-17); White Blood Count 4.3 10^3/uL (3.6-10.2)
[2024-01-01 06:13] LABS: Calcium 8.8 mg/dL (8.6-10.3); Creatinine, Serum 0.88 mg/dL (0.67-1.17); eGFR CKD-EPI 87.5 (>60)
[2024-01-01] MEDS: Enoxaparin 80 MG/0.8 ML SYR SUBCUT SCH (14:17)
[2024-01-01] MEDS ORDERED: DORNASE ALFA 1 mg/ml 5 MG in NS 0.9% 50 ML INTRAPLEUR SCH (16:00)
[2024-01-01] MEDS ORDERED: Alteplase (CATHFLO) 10 MG in NS 0.9% 50 ML 40 ML INTRAPLEUR SCH (16:00)
[2024-01-01] MEDS ORDERED: DORNASE ALFA 1 mg/ml(NF) 5 MG in NS 0.9% 50 ML 45 ML INTRAPLEUR SCH (16:00)
[2024-01-01] MEDS: Alteplase (CATHFLO) 10 MG in NS 0.9% 50 ML 40 ML INTRAPLEUR ONE (17:56)
[2024-01-01] MEDS: DORNASE ALFA 1 mg/ml 5 MG in NS 0.9% 50 ML INTRAPLEUR ONE (17:56)
[2024-01-02 06:15] LABS: ABS Eosinophils 0.1 10^3/uL (0.0-0.5); ABS Lymphocytes 0.3 10^3/uL (1.0-4.8); ABS Monocytes 0.5 10^3/uL (0.0-1.1); ABS Neutrophils 3.4 10^3/uL (1.5-7.6); Eosinophil % 2.2 %; Hematocrit 39.7 % (38-53); Hemoglobin 13.2 g/dL (13.2-16.3); Lymphocyte % 7.8 %; Mean Corpuscular Hemoglobin 31.8 pg (27-33); Mean Corpuscular Hgb Conc 33.2 g/dL (31-36); Mean Corpuscular Volume 95.7 fL (80-97); Nucleated Red Blood Cells % 0.1 %/100WBC (0.0-0.8); Platelet Count 211 10^3/uL (150-450); Red Blood Count 4.15 10^6/uL (4.06-5.63); Red Cell Distribution Width 15.5 % (12-17); White Blood Count 4.4 10^3/uL (3.6-10.2)
[2024-01-02 06:32] LABS: Calcium 9.1 mg/dL (8.6-10.3); Creatinine, Serum 0.83 mg/dL (0.67-1.17); Potassium 4.4 mmol/L (3.5-5.0)
[2024-01-02 15:04] LABS: INR 1.08 (0.83-1.13)
[2024-01-02 16:34] LABS: High Sensitivity Troponin 1 Hr 5 pg/mL (<20)
[2024-01-03 05:21] LABS: ABS Eosinophils 0.1 10^3/uL (0.0-0.5); ABS Lymphocytes 0.4 10^3/uL (1.0-4.8); ABS Monocytes 0.9 10^3/uL (0.0-1.1); ABS Neutrophils 5.2 10^3/uL (1.5-7.6); ABS Nucleated RBC 0.01 10^3/ul; Eosinophil % 0.9 %; Hematocrit 37.4 % (38-53); Hemoglobin 12.5 g/dL (13.2-16.3); Lymphocyte % 5.4 %; Mean Corpuscular Hemoglobin 31.9 pg (27-33); Mean Corpuscular Hgb Conc 33.6 g/dL (31-36); Mean Platelet Volume 9.8 fL (7.5-11.2); Nucleated Red Blood Cells % 0.1 %/100WBC (0.0-0.8); Platelet Count 210 10^3/uL (150-450); Red Blood Count 3.94 10^6/uL (4.06-5.63); Red Cell Distribution Width 15.2 % (12-17); White Blood Count 6.6 10^3/uL (3.6-10.2)
[2024-01-03 06:14] LABS: Anion Gap 5 mmol/L (2-16); Blood Urea Nitrogen 29 mg/dL (6-24); CO2 Carbon Dioxide 32 mmol/L (22-32); Calcium 8.6 mg/dL (8.6-10.3); Chloride 99 mmol/L (101-111); Creatinine, Serum 0.82 mg/dL (0.67-1.17); Glucose 90 mg/dL (70-100); Sodium 136 mmol/L (135-145); eGFR CKD-EPI 89.4 (>60)
[2024-01-03 07:34] LABS: Magnesium 1.9 mg/dL (1.9-2.7)
[2024-01-03] MEDS ORDERED: Rocuronium 50 mg VIAL 10 mg/ml 5 ml VIAL (50 mg) ONE (09:55)
[2024-01-03] MEDS ORDERED: Ketamine HCL 50 mg/ml 10 ml VIAL (500 MG) ONE (09:55)
[2024-01-03] MEDS ORDERED: fentaNYL 250 mcg/5 ml 50 MCG/ML 5 ml VIAL (250 MCG) ONE (09:55)
[2024-01-03] MEDS ORDERED: Midazolam 10 mg/10 ml VIAL 1 mg/ml 10 ml VIAL (10 mg) ONE (09:55)
[2024-01-03 10:00] LABS: Fluid Type, Protein, Total PLEURAL; Total Protein, BF 2.4 g/dL
[2024-01-03] MEDS: Rocuronium 50 mg VIAL 10 mg/ml 5 ml VIAL (50 mg) IV ONE (10:15)
[2024-01-03] MEDS: Phenylephrine 40 mcg/mL 10mL (400mcg) SYRINGE ONE (10:17)
[2024-01-03] MEDS: Propofol 10 mg/ml 100 ML BTL 1,000 MG/100 ML BTL ONE (10:19)
[2024-01-03] MEDS: Propofol 10 mg/ml 100 ML BTL 1,000 MG/100 ML BTL IV SCH (10:19)
[2024-01-03] MEDS ORDERED: Sulfur Hexaflouride MICROSPHR 25 MG VIAL ONE ×2 (10:29→13:39)
[2024-01-03 10:49] LABS: Body Fluid Source Broncheoalveolar lav
[2024-01-03] MEDS: Acetylcysteine INHALATION SOL 200 MG/ML NEB.SOLN 10 ML ONE (11:03)
[2024-01-03 13:34] LABS: Body Fluid Appearance Cloudy
[2024-01-03 13:46] LABS: Body Fluid Total Cells Counted 300
[2024-01-03] MEDS: Chlorhexidine MOUTHWASH 0.12% 15 ML UDC TOPICAL SCH (14:45)
[2024-01-03] MEDS: Furosemide 40 mg/4 ml IV VIAL IV SLOW PU ONE (14:45)
[2024-01-03] MEDS: Furosemide 40 mg/4 ml IV VIAL ONE (14:45)
[2024-01-03] MEDS: Albuterol 2.5mg/3 ml (0.083%) NEB.SOLN INH ONE (15:15)
[2024-01-03] MEDS: Morphine 2 MG/ML SYRINGE IV ONE (15:51)
[2024-01-03] MEDS ORDERED: Senna TAB 8.6 mg TAB PO PRN (17:22)
[2024-01-03] MEDS ORDERED: Morphine ORAL CONCENTRATE 5 MG/0.25 ML ORAL.SYRIN SL PRN (17:22)
[2024-01-03] MEDS ORDERED: Ondansetron ODT 4 mg TAB 4 MG TAB SL PRN (17:22)
[2024-01-03] MEDS ORDERED: Atropine 1% (ORAL/SL) 15 ML BTL SL PRN (17:22)
[2024-01-03] MEDS: Morphine ORAL CONCENTRATE 5 MG/0.25 ML ORAL.SYRIN SL PRN (19:29)
[2024-01-03] MEDS ORDERED: Famotidine IV 10 MG/ML 2 ml VIAL (20 mg) IV SLOW PU SCH (21:00)
[2024-01-03] MEDS ORDERED: Enoxaparin 40 MG/0.4 ML SYR SUBCUT SCH (21:00)
[2024-01-04 00:25] VITALS: BP 137/115
[2024-01-04] MEDS: Levothyroxine 100 MCG/5 ML VIAL IV SCH (10:30)
[2024-01-04] MEDS: Morphine 4 MG/ML VIAL (1 ml) IV PRN (11:24)
[2024-01-04] MEDS: Morphine 10 MG/ML VIAL (1 ml) IV PRN (13:10)
[2024-01-04] MEDS: Morphine 10 MG/ML VIAL (1 mL) 100 MG in NS 0.9% 100 ml BAG 90 ML IV SCH (14:06)
[2024-01-05] MEDS: diazePAM INJ CARPUJECT 5 MG/ML SYRINGE IV PRN (08:12)
[2024-01-05] MEDS ORDERED: Morphine 10 MG/ML VIAL (1 ml) IV PRN (08:24)
[2024-01-05] MEDS ORDERED: Lorazepam PYXIS KEY PRN (10:24)
[2024-01-05] MEDS: Morphine 10 MG/ML VIAL (1 ml) IV ONE (10:35)
[2024-01-05] MEDS: Morphine 10 MG/ML VIAL (1 mL) 100 MG in NS 0.9% 100 ml BAG 90 ML IV SCH (11:37)
[2024-01-05] MEDS: LORazepam 2 mg VIAL 1 ml IV PUSH ONE (11:39)
== END 2024-01-05 12:20 | disposition expired | DRG 208 ==
LOC: EDHOLD 14:02 → ED 14:02 → SUATTDRO 20:21 → MED 22:28 → SUATTDRO 12-29 11:53 → ICU 01-02 14:16
PROVIDERS: ADMIT Hospitalist; ATTEND Internal Medicine Critical Care Medicine